=== PATIENT | female | born 1940 | race Caucasian/White ===

== ENCOUNTER 2019-09-06 09:27 | Outpatient (CLI) | payer MEDICARE, OTHER, SELFPAY ==
--- NOTE | 2019-09-06 09:30 | MM_ITS ---
WS: [id number] RIGHT DIGITAL MAMMOGRAPHY WITH CAD CLINICAL INFORMATION: RT BREAST NODULE COMPARISON: None. TECHNIQUE: 5 views of the right breast were obtained. FINDINGS: Scattered fibroglandular densities of the right breast. Vascular calcification. Lucent centered calci fications. Previously described 6 mm lobulated density upper outer right breast is stable compared to March 23, 2019. Ultrasound is pending. ULTRASOUND BREAST RIGHT TECHNIQUE: Ultrasound right breast focused area of concern. CLINICAL INFORMATION: RT BREAST NODULE COMPARISON: March 23, 2019 FINDINGS: Ultrasound right breast 9:00 position 3 cm from the nipple. A few tiny cysts are visualized largest m easuring 5.9 x 2.6 mm. No suspicious lesions. No pathologic lesions to target for biopsy. MM/[place] [id number] IMPRESSION: BI-RADS: 2-Benign FOLLOW UP: 1 Year Follow-up Recommend return to annual screening mammography.
== END 2019-09-06 09:28 | disposition home or self-care (01) ==
LOC: RADSHAW 09:27
PROVIDERS: PCP Nurse Practitioner Family; Visit Provider Nurse Practitioner Family
DX: N63.10 Unspecified lump in the right breast, unspecified quadrant (principal)
CPT/HCPCS: 76642; 77065

== ENCOUNTER 2020-07-04 22:30 | Emergency (ER) | payer MEDICARE, OTHER, SELFPAY ==
[2020-07-04 22:38] VITALS: BP 195/91; PULSE 61; RESP 18; TEMP 36.7; O2SAT 95; BMI 34.7
--- NOTE | 2020-07-04 22:45 | XR_ITS ---
WS: [id number] XR chest 1V portable [id number] REASON FOR EXAM: htn FINDINGS: The chest is unchanged compared to 07/17/2014. Mild tortuosity of the thoracic aorta normal heart. Calcified granulomatous changes in both hemithoraces of the right hemidiaphragm. No active pulmonary parenchymal pleural disease. Moderate degenerative changes in the shoulders and mid and lower thoracic spine. XR/XR chest 1V portable [id number] IMPRESSION: No acute chest abnormality.
--- NOTE | 2020-07-04 23:01 | ED_ITS ---
HPI - General Adult General: Chief complaint: General Medical Stated complaint: high blood pressure Time Seen by Provider: 07/04/20 22:36 Source: patient and family (daughter) Mode of arrival: ambulatory Limitations: no limitations History of Present Illness: HPI narrative: Pleasant 80 year old female patient presents to the ED due to HTN - reports BP readings at home 259/130 - out of home BP medication, Micardis x 5 days - took dose at 1500 today - denies CP - reports nausea. Reports SOB but is chronic due to asthma - states has not changed. She denies other symptoms upon exam. Reports past 6 months, blood pressure readings have elevated, average 180/70. Onset (ago): hour(s) (1) Relieving factors: none Exacerbating factors: none Associated symptoms: Reports dyspnea, headache(s) and nausea; Deny chest pain, diaphoresis, rash, palpitations or vomiting Treatments prior to arrival: other (BP medication) Review of Systems General: Reports: 10 or more systems reviewed and unremarkable except in HPI and below Const: Denies: fever(s), chills or diaphoresis Eyes: Denies: blurry vision or eye redness ENMT: Denies: throat pain, dental pain or disequilibrium Card: Denies: chest pain, palpitations or irregular heart rhythm Resp: Reports: dyspnea; Denies: productive cough, non-productive cough, wheezing or chest congestion GI: Reports: nausea; Denies: abdominal pain, vomiting, heartburn, constipation or GI cramping : Denies: difficulty voiding or dysuria Musc: Denies: neck pain, back pain, joint pain or joint warmth Skin/Breast: Denies: rash or pruritus Neuro: Reports: headache(s); Denies: numbness in extremities, weakness in extremities, sensory changes, difficulty walking or behavioral changes Psych: Denies: anxiety, depression, hopelessness or irritability Wilfredo/Lymph: Denies: easy bruising PFSH ED PFSH: Medical History Asthma HTN (hypertension) Physical Exam Const: COMMON NORMALS: no acute distress, average body habitus, patient oriented x3, healthy appearing, alert and well nourished EXAM LIMITATIONS: no altered mental status and no behavioral limitations GENERAL APPEARANCE: cooperative, comfortable, well kempt, well developed, anxious and well hydrated NUTRITIONAL APPEARANCE: obese ORIENTATION/CONSCIOUSNESS: Yes awake, Yes oriented to person, Yes oriented to place and Yes oriented to time HENMT: COMMON NORMALS: normocephalic, Normal external nose present and moist oral mucous membranes HEAD & SCALP: normocephalic NOSE: Normal external nose present Eye: COMMON NORMALS: Equal, round and reactive pupils present and EOMs intact bilaterally GENERAL EYE: appearance normal, both eyes and all related structures PUPIL: Yes Equal, round and reactive pupils present Neck/C-Spine: COMMON NORMALS: full ROM and no lymphadenopathy GENERAL: Yes normal visual inspection and Yes trachea midline CERVICAL SPINE: Yes cervical ROM normal Lymph: LYMPHATIC: no lymphadenopathy noted Chest: COMMONS NORMALS: normal inspection of the chest Resp: COMMON NORMALS: normal respiratory effort and clear to auscultation bilaterally AUSCULTATION: clear to auscultation bilaterally Cardio: COMMON NORMALS: regular rate, regular rhythm, S1 normal heart sound present, S2 normal heart sound present and Peripheral pulses 2+ throughout RATE: regular rate RHYTHM: regular rhythm HEART SOUNDS: S1 normal heart sound present and S2 normal heart sound present PERIPHERAL PULSES: Peripheral pulses 2+ throughout GI: COMMON NORMALS: Normal to inspection, nondistended, normoactive bowel sounds present, Soft to palpation and non-tender INSPECTION: Yes normal to inspection, No abdominal distension, Yes central obesity and No GI erythema present PALPATION: Yes Soft to palpation : COMMON NORMALS: Yes no CVA tenderness BLADDER/KIDNEY EXAM: Yes no CVA tenderness Back/Pelvis: COMMON NORMALS: no CVA tenderness, thoracic and lumbar spine normal to inspection, no thoracic nor lumbar tenderness and thoraco-lumbar ROM normal Extremity: COMMON NORMALS: normal to inspection and capillary refill normal Neuro: COMMON NORMALS: patient oriented x3 and no focal motor deficits SENSORIUM/ORIENTATION: Yes alert, Yes oriented to person, Yes oriented to place and Yes oriented to time Psych: COMMON NORMALS: mental status grossly normal, Normal thought process present and cooperative APPEARANCE: Yes well kempt ACTIVITY/MOTOR BEHAVIOR: Yes appropriate eye contact THOUGHT PROCESS: Normal thought process present Skin: COMMON NORMALS: no rashes or lesions noted and turgor normal GENERAL SKIN EXAM: no rashes or lesions noted and turgor normal Course ED course: Pleasant 80-year-old female patient presents to the emergency department with hypertension. She reports out of blood pressure medication for 5 days until today. States took Micardis around 3 PM. Blood pressure reading 223/113 upon my initial exam, clonidine 0.1 mg administered, blood pressure decreased, headache resolved with Tylenol and reduction of blood pressure. CT scan of the head completed secondary to concern of headache. Retention cyst, bilateral maxillary appreciated, she has been referred to ENT for further evaluation. She was advised to follow-up with her primary care physician next week, she has an appointment scheduled. Advised to continue with blood pressure log/monitoring. Prescription of clonidine provided in the event blood pressure exceeds 190/110. Low-salt diet recommended. Advised to rest today and tomorrow. Advised to return to emergency department if she developed worsening symptoms such as return of headache with uncontrolled blood pressure. Serial troponin negative, EKGs without significant findings. Serology testing without acute process. Vital Signs: Vital signs: Vital Signs Temperature 98.1 F 07/04/20 22:38 Pulse Rate 87 07/05/20 01:38 Respiratory Rate 18 07/05/20 01:38 Blood Pressure 179/73 07/05/20 01:38 Pulse Oximetry 98 07/05/20 01:38 [facility] - General Adult Lab Data: Labs: Lab Results 07/04/20 07/04/20 07/04/20 Range/Units 00:03 00:03 00:03 WBC 7.2 (4.0-10.0) 10^3/ uL RBC 4.34 (4.1-5.3) 10^6/u L Hgb 13.8 (11.5-15.3) g/dL Hct 42.3 (37.0-47.0) % MCV 97.5 (81-99) fL MCH 31.8 (28.0-34.0) pg MCHC 32.6 (30.0-36.0) g/dL RDW 11.9 L (12.1-15.1) % Plt Count 202 (130-400) 10^3/c mm MPV 10.5 H (7.4-10.4) fL Neut % (Auto) 59.5 % Lymph % (Auto) 29.6 % [place] % (Auto) 8.1 % Eos % (Auto) 2.1 % Baso % (Auto) 0.4 % Neut # (Auto) 4.28 (1.8-7.7) 10^3/u L Lymph # (Auto) 2.1 (0.8-4.8) 10^3/u L [place] # (Auto) 0.6 (0.2-0.9) 10^3/u L Eos # (Auto) 0.2 (0.0-0.8) 10^3/u L Baso # (Auto) 0.0 (0.0-0.1) 10^3/u L Nucleated RBC % (a uto) 0 % Nucleated RBCs # 0.0 /100WBC Sodium 141 (136-145) mmol/L Potassium 3.6 (3.5-5.1) mmol/L Chloride 105 (98-107) mmol/L Carbon Dioxide 28 (22-29) mmol/L Anion Gap 11.6 (5-19) BUN 30 H (8-23) mg/dL Creatinine 0.9 (0.5-0.9) mg/dL GFR Calculation Not Reportable Glucose 104 (65-115) mg/dL Calculated Osmolal ity 298 H (285-295) mOsm/k g Calcium 9.4 (8.5-10.5) mg/dL Total Bilirubin 0.3 (0.15-1.2) mg/dL AST 17 (0-32) U/L ALT 17 (0-33) U/L Alkaline Phosphata se 65 (35-105) IU/L Troponin T Baselin e 8 (0-10) ng/L Troponin T 120 Min point [place] (0-10) ng/L Delta Troponin T (0-10) ABS# Total Protein 6.5 L (6.6-8.7) g/dL Albumin 4.1 (3.5-5.2) g/dL Globulin 2.4 (1.3-4.6) g/dL Urine Color (Yellow) Urine Appearance (CLEAR) Urine pH (5-7) Ur Specific Gravit y (1.005-1.030) Urine Protein (Negative) Urine Glucose (UA) (Normal) Urine Ketones (Negative) Urine Blood (Negative) Urine Nitrate (Negative) Urine Bilirubin (Negative) Urine Urobilinogen (Negative) mg/dL Ur Leukocyte Eunice ase (Negative) 07/05/20 07/05/20 Range/Units 01:27 01:33 WBC (4.0-10.0) 10^3/ uL RBC (4.1-5.3) 10^6/u L Hgb (11.5-15.3) g/dL Hct (37.0-47.0) % MCV (81-99) fL MCH (28.0-34.0) pg MCHC (30.0-36.0) g/dL RDW (12.1-15.1) % Plt Count (130-400) 10^3/c mm MPV (7.4-10.4) fL Neut % (Auto) % Lymph % (Auto) % [place] % (Auto) % Eos % (Auto) % Baso % (Auto) % Neut # (Auto) (1.8-7.7) 10^3/u L Lymph # (Auto) (0.8-4.8) 10^3/u L [place] # (Auto) (0.2-0.9) 10^3/u L Eos # (Auto) (0.0-0.8) 10^3/u L Baso # (Auto) (0.0-0.1) 10^3/u L Nucleated RBC % (a uto) % Nucleated RBCs # /100WBC Sodium (136-145) mmol/L Potassium (3.5-5.1) mmol/L Chloride (98-107) mmol/L Carbon Dioxide (22-29) mmol/L Anion Gap (5-19) BUN (8-23) mg/dL Creatinine (0.5-0.9) mg/dL GFR Calculation Glucose (65-115) mg/dL Calculated Osmolal ity (285-295) mOsm/k g Calcium (8.5-10.5) mg/dL Total Bilirubin (0.15-1.2) mg/dL AST (0-32) U/L ALT (0-33) U/L Alkaline Phosphata se (35-105) IU/L Troponin T Baselin e (0-10) ng/L Troponin T 120 Min point [place] 6.70 (0-10) ng/L Delta Troponin T -1.3 L (0-10) ABS# Total Protein (6.6-8.7) g/dL Albumin (3.5-5.2) g/dL Globulin (1.3-4.6) g/dL Urine Color Yellow (Yellow) Urine Appearance Clear (CLEAR) Urine pH 5 (5-7) Ur Specific Gravit y 1.005 (1.005-1.030) Urine Protein Neg (Negative) Urine Glucose (UA) Norm (Normal) Urine Ketones Negative (Negative) Urine Blood Neg (Negative) Urine Nitrate Negative (Negative) Urine Bilirubin Neg (Negative) Urine Urobilinogen Norm (Negative) mg/dL Ur Leukocyte Eunice ase Negative (Negative) Imaging Data^: CT Head: Radiologist's impression: [address] [address] [address] Scan Report Signed Patient: Quin Stover #: [id number] : 1940Acct#:[id number] Age/Sex: 80 / FADM Date: 07/04/20 Loc: ERRoom/Bed: Attending Dr: Ordering Provider/Ordering MD: Amira Lara Date of Service: 07/05/20 Procedure(s): CT head wo con* [id number] Accession Number(s): [id number] Report Number: [id number] PROCEDURE INFORMATION: Exam: CT Head Without Contrast Exam date and time: 07/05/2020 12:37 AM Age: 80 years old Clinical indication: Prior surgery; Surgery type: Acoustic neuroma. Mesh in place; Patient HX: Hypertensive. C/O headache and dizziness. TECHNIQUE: Imaging protocol: Computed tomography of the head without contrast. Radiation optimization: All CT scans at this facility use at least one of these dose optimization techniques: automated exposure control; mA and/or kV adjustment per patient size (includes targeted exams where dose is matched to clinical indication); or iterative reconstruction. ADDITIONAL STUDY INFORMATION: Total DLP (mGy-cm): 821.7 COMPARISON: No relevant prior studies available. FINDINGS: There are changes left posterior fossa craniectomy and placement of mesh. Small amount of ill-defined low-density in lateral aspect left cerebellum is likely malacia/gliosis from old insult. There are prominent intracranial arterial calcifications. Evaluation of the brain demonstrates no other convincing areas of abnormal density. There is mild cerebral cortical atrophy. Ventricles do not appear significantly dilated. No depressed calvarial fracture is demonstrated. Partly demonstrated is rounded density in visualized right maxillary sinus and 2 in visualized left maxillary sinus, most compatible with polyps or retention cysts. Visualized mastoid air cells demonstrate no significant opacification. CT/CT head wo con* [id number] IMPRESSION: No definite acute intracranial process is demonstrated. Other findings as discussed above. Radiation Dose CTDIVOL = (mGy): DLP = 821.7 (mGy-cm) Dictated By:Gen Barth MD Signed By:Gen Barth MDSigned Date/Time:07/05/20 0216 EKG Data^: EKG 1: EKG interpretation date: 07/04/20 EKG interpretation time: 23:27 Computer generated interpretation: Head CT 07/05/20 00:20 IMPRESSION: No definite acute intracranial process is demonstrated. Other findings as discussed above. Radiation Dose CTDIVOL = (mGy): DLP = 821.7 (mGy-cm) Other EKG comments: Sinus rhythm, ventricular rate 60 EKG 2: EKG interpretation date: 07/05/20 EKG interpretation time: 01:17 Computer generated interpretation: Head CT 07/05/20 00:20 IMPRESSION: No definite acute intracranial process is demonstrated. Other findings as discussed above. Radiation Dose CTDIVOL = (mGy): DLP = 821.7 (mGy-cm) Other EKG comments: Sinus bradycardia, ventricular rate 54 Discharge Plan Discharge Patient Disposition: Home Clinical Impression: Mucous retention cyst of maxillary sinus Hypertension Qualifiers: Hypertension type: essential hypertension Qualified Code(s): I10 - Essential (primary) hypertension Condition: Stable Prescriptions: New clonidine HCl 0.1 mg tablet 0.1 mg PO DAILY Qty: 10 RF: 0 Discharge Orders: Discharge ED (Routine); Ordered 07/05/20 Ordered By: Amira Lara Referrals: Heidi Haile FNP [Primary Care Provider] - Discharge Diet: Cardiac Discharge Activity: Limit activity as instructed Patient Instructions: Chronic Hypertension (ED), Hypertensive Crisis (ED) Activity Restrictions/Additional Instructions: Low-salt diet Continue blood pressure monitoring daily, take blood pressure when at rest for 30 minutes. Record and take to your primary care provider Continue Micardis as prescribed, take daily Clonidine has been prescribed for you, take medication if blood pressure reading is greater than 190/110. Medication can cause drowsiness so do not drive if under the influence of clonidine Return to the emergency department if you develop the worst headache of your life, blood pressure that is out of control Follow-up with your primary care provider next week without fail. Take blood pressure readings to her for evaluation. services tech will be contacting you with an appointment with an ENT due to retention cyst in your sinus cavity appreciated on CT of the head. Coding Level of Care Code ED Director Of Vocational Guidance for Tre Fwaline Exam Comprehensive
[2020-07-04] MEDS: cloNIDine 0.1 mg Tablet PO (23:39)
[2020-07-04] MEDS: acetaminophen 500 mg Tablet 1000 MG PO (23:39)
[2020-07-05] MEDS: ondansetron 2 mg/ML SDV 2 mL 4 MG IVP (00:05)
--- NOTE | 2020-07-05 00:20 | CTR_ITS ---
PROCEDURE INFORMATION: Exam: CT Head Without Contrast Exam date and time: 07/05/2020 12:37 AM Age: 80 years old Clinical indication: Prior surgery; Surgery type: Acoustic neuroma. Mesh in place; Patient HX: Hypertensive. C/O headache and dizziness. TECHNIQUE: Imaging protocol: Computed tomography of the head without contrast. Radiation optimization: All CT scans at this facility use at least one of these dose optimization techniques: automated exposure control; mA and/or kV adjustment per patient size (includes targeted exams where dose is matched to clinical indication); or iterative reconstruction. ADDITIONAL STUDY INFORMATION: Total DLP (mGy-cm): 821.7 COMPARISON: No relevant prior studies available. FINDINGS: There are changes left posterior fossa craniectomy and placement of mesh. Small amount of ill-defined low-density in lateral aspect left cerebellum is likely malacia/gliosis from old insult. There are prominent intracranial arterial calcifications. Evaluation of the brain demonstrates no other convincing areas of abnormal density. There is mild cerebral cortical atrophy. Ventricles do not appear significantly dilated. No depressed calvarial fracture is demonstrated. Partly demonstrated is rounded density in visualized right maxillary sinus and 2 in visualized left maxillary sinus, most compatible with polyps or retention cysts. Visualized mastoid air cells demonstrate no significant opacification. CT/CT head wo con* [id number] IMPRESSION: No definite acute intracranial process is demonstrated. Other findings as discussed above. Radiation Dose CTDIVOL = (mGy): DLP = 821.7 (mGy-cm)
[2020-07-05 00:28] LABS: Basophils % 0.4 %; Eosinophils # 0.2 10^3/uL (0.0-0.8); Eosinophils % 2.1 %; Hematocrit 42.3 % (37.0-47.0); Hemoglobin 13.8 g/dL (11.5-15.3); Lymphocytes # 2.1 10^3/uL (0.8-4.8); Lymphocytes % 29.6 %; Mean Corpuscular HGB Conc 32.6 g/dL (30.0-36.0); Mean Corpuscular Hemoglobin 31.8 pg (28.0-34.0); Mean Corpuscular Volume 97.5 fL (81-99); Mean Platelet Volume 10.5 fL (7.4-10.4); Monocytes # 0.6 10^3/uL (0.2-0.9); Monocytes % 8.1 %; Neutrophils # 4.28 10^3/uL (1.8-7.7); Neutrophils % 59.5 %; Nucleated Red Blood Cells % 0 %; Platelet Count 202 10^3/cmm (130-400); Red Blood Count 4.34 10^6/uL (4.1-5.3); Red Cell Distribution Width 11.9 % (12.1-15.1); White Blood Count 7.2 10^3/uL (4.0-10.0)
[2020-07-05 00:37] LABS: Alanine Aminotransferase 17 U/L (0-33); Albumin Level 4.1 g/dL (3.5-5.2); Alkaline Phosphatase 65 IU/L (35-105); Anion Gap 11.6 (5-19); Aspartate Amino Transferase 17 U/L (0-32); Blood Urea Nitrogen 30 mg/dL (8-23); Calcium 9.4 mg/dL (8.5-10.5); Carbon Dioxide 28 mmol/L (22-29); Chloride 105 mmol/L (98-107); Globulin 2.4 g/dL (1.3-4.6); Glucose 104 mg/dL (65-115); Osmolality Calculated 298 mOsm/kg (285-295); Potassium 3.6 mmol/L (3.5-5.1); Sodium 141 mmol/L (136-145); Total Bilirubin 0.3 mg/dL (0.15-1.2); Total Protein 6.5 g/dL (6.6-8.7)
[2020-07-05 00:38] LABS: Troponin(5th) Baseline 8 ng/L (0-10)
[2020-07-05 01:38] VITALS: BP 179/73; PULSE 87; RESP 18; O2SAT 98
[2020-07-05 01:53] LABS: Add Urine Microscopic? NO
[2020-07-05 02:10] LABS: Bilirubin Urine Neg (Negative); Blood Urine Neg (Negative); Glucose Urine UA Norm (Normal); Ketones Urine Negative (Negative); Leukocyte Esterase Urine Negative (Negative); Nitrate Urine Negative (Negative); Protein Urine Neg (Negative); Specific Gravity, Urine 1.005 (1.005-1.030); Urine Appearance Clear (CLEAR); Urine Color Yellow (Yellow); Urobilinogen Urine Norm (Negative); pH Urine 5 (5-7)
[2020-07-05 02:44] LABS: Troponin 5 2HR Delta -1.3 ABS# (0-10)
[2020-07-05 02:57] VITALS: BP 168/91; PULSE 71; RESP 16; O2SAT 99
--- NOTE | 2020-07-05 10:19 | DCPLANNER ---
Addendum entered by Jennie Barraza 07/10/20 18:17: senior contracts manager was contacted and was told that when general surgery called patient she declined appointment due to patient having a ENT in [place] that she sees. Original Note: senior contracts manager had message to schedule a follow up appointment for patient with ENT. senior contracts manager emailed [place] at [facility] General Surgery, patients information. Patients information will be printed and reviewed. Clinic will call patient with appointment information.
== END 2020-07-05 02:58 | disposition home or self-care (01) ==
PROVIDERS: Emergency Provider Nurse Practitioner Family; PCP Nurse Practitioner Family
DX: I10 Essential (primary) hypertension (principal); J34.1 Cyst and mucocele of nose and nasal sinus
CPT/HCPCS: 12345; 36415; 70450; 71045; 80053; 81003; 84484; 85025; 96374; 99282; 99283; J2405

== ENCOUNTER → 2021-09-09 15:09 | Outpatient (BNVA) | payer MEDICARE, OTHER, SELFPAY | PROVIDERS: PCP Nurse Practitioner Family; Visit Provider Podiatrist Foot & Ankle Surgery | DX: M10.9 Gout, unspecified (principal); M21.611 Bunion of right foot | CPT/HCPCS: 73630 ==

== ENCOUNTER → 2021-10-29 12:45 | Outpatient (BNVA) | payer MEDICARE, OTHER, SELFPAY | PROVIDERS: PCP Nurse Practitioner Family; Visit Provider Podiatrist Foot & Ankle Surgery | DX: M65.9 Synovitis and tenosynovitis, unspecified (principal); M25.571 Pain in right ankle and joints of right foot | CPT/HCPCS: 73610; 73630; 99213 ==

== ENCOUNTER 2021-11-12 15:59 | Outpatient (CLI) | payer MEDICARE, OTHER, SELFPAY | END 2021-11-12 16:00 | disposition home or self-care (01) | LOC: SPT 16:03 | PROVIDERS: PCP Nurse Practitioner Family; Visit Provider Podiatrist Foot & Ankle Surgery | DX: Z46.89 Encounter for fitting and adjustment of other specified devices (principal); M21.611 Bunion of right foot; S92.301D Fracture of unspecified metatarsal bone(s), right foot, subsequent encounter for fracture with routine healing; X58.XXXD Exposure to other specified factors, subsequent encounter | CPT/HCPCS: 97760; L3030 ==

== ENCOUNTER 2022-08-29 10:52 | Outpatient (CLI) | payer MEDICARE, OTHER, SELFPAY ==
--- NOTE | 2022-08-29 10:58 | CT_ITS ---
WS: [id number] CT CHEST WITH INTRAVENOUS CONTRAST HISTORY: CHEST PAIN TECHNIQUE: Contiguous 5 mm axial imaging performed on the thorax. Coronal and sagittal reformats are submitted. All CT scans at [facility] use at least one of these dose optimization techniques: automated exposure control; mA and/or kV adjustment per patient size (includes targeted exams where dose is matched to clinical indication); or iterative reconstruction. CONTRAST: Omnipaque 350; 100 mL IV. DLP: 498.68 mGy.cm COMPARISON: None available. Lungs and central airway: Mild volume loss in the RIGHT thorax. Mild atelectasis along the major fiss ure. There is additional mild atelectasis at the RIGHT lung base. Pleura: Small RIGHT pleural effusion. Heart and pericardium: Mild enlargement the RIGHT heart chambers. There is mild RIGHT heart strain. F lattening of the interventricular septum. Mediastinum and demetris: No mediastinum or hilar adenopathy. Vessels: Atherosclerosis aorta. No aneurysm. Normal origin of the great vessels. Pulmonary emboli are noted in the distal RIGHT main pulmonary artery with extension into the proximal RIGHT lower lobe pu lmonary artery. There is near occlusion beginning in the lobar branch. Additional emboli to the RIGHT middle lobe. The exact extent of the oblique is difficult to determine as this was not a CTA angiogr am. Suspicious for segmental branch emboli in the LEFT lower lobe. Chest wall and lower neck: No soft tissue masses. Upper abdomen: Small hiatal hernia. There is a filling defect within the confluence of the portal vei n and splenic vein which is probably due to the early phase of injection. No adrenal mass. Osseous structures: Mild increase in thoracic kyphosis. CT/CT chest w con* [id number] IMPRESSION: 1. Acute pulmonary emboli. Significant embolic burden greatest within the RIGH T pulmonary artery and RIGHT lower lobe artery. Smaller emboli in the RIGHT mid dle and LEFT lower lobe. 2. Small RIGHT pleural effusion. 3. RIGHT heart strain. Notified DIONTE [place] at 08/29/2022 12:15 PM.
[2022-08-29 11:26] LABS: Blood Urea Nitrogen 26 mg/dL (8-23)
[2022-08-29] MEDS: iohexol 350 mg/mL 500 mL Btl (per mL) IV (11:42)
== END 2022-08-29 10:53 | disposition home or self-care (01) ==
LOC: RAD 10:53
PROVIDERS: PCP Nurse Practitioner Family; Visit Provider Nurse Practitioner Family
DX: R07.9 Chest pain, unspecified (principal); I26.99 Other pulmonary embolism without acute cor pulmonale; J90 Pleural effusion, not elsewhere classified; I51.9 Heart disease, unspecified
CPT/HCPCS: 71260; 82565; 84520; Q9967

== ENCOUNTER 2022-08-29 13:50 | Emergency (ER) | payer MEDICARE, OTHER, SELFPAY ==
[2022-08-29 13:52] VITALS: BP 166/84; RESP 73; O2SAT 94
--- NOTE | 2022-08-29 14:07 | ECG_ITS ---
[facility] Test Date: 2022-08-29 Pat Name: Quin Stover Department: Room: Gender: Female Secured Entrance Monitor: : 1940 Requested By: Jose Ramon Lowery Order Number: [id number] Deirdre MD: Robe Esteban M.D. Measurements Intervals [place] Rate: 63 P: 60 NM: 172 QRS: 9 QRSD: 78 T: 53 QT: 396 QTc: 408 Interpretive Statements SINUS RHYTHM LEFT VENTRICULAR HYPERTROPHY AND ST-T CHANGE [VOLTAGE CRITERIA PLUS ST/T ABNORMALITY] Compared to ECG 07/17/2014 02:39:24 ST (T wave) deviation now present Electronically Signed On 08-29-2022 16:19:49 REGULATORY AFFAIRS CONSULTANT by Robe Esteban M.D. [id number]
--- NOTE | 2022-08-29 14:07 | USCV_ITS ---
Quin Stover Age: 82 Gender: F : 1940 Exam Date: 08/29/2022 14:29 Ordering Phys: Jose Ramon Watkins DO Technologist: BRIAN Exam Location: [facility] [place] Indication: pe BP: / HR: 65 Rhythm: Sinus Technical Quality: Adequate MEASUREMENTS (Male / Female) Normal Values 2D ECHO LV Diastolic Diameter PLAX 4.3 cm 4.2 - 5.9 / 3.9 - 5.3 cm LV Systolic Diameter PLAX 2.3 cm IVS Diastolic Thickness 0.9 cm 0.6 - 1.0 / 0.6 - 0.9 cm IVS Systolic Thickness 1.4 cm LVPW Diastolic Thickness 1.0 cm 0.6 - 1.0 / 0.6 - 0.9 cm LVPW Systolic Thickness 1.3 cm LVOT Diameter 2.0 cm LV Ejection Fraction 2D Teich 78.1 % LV Ejection Fraction MOD 2C 43.5 % LV Ejection Fraction 2C AL 43.9 % LA Diameter 3.2 cm IVC Diameter 1.7 cm M-MODE Aortic Annulus Diameter 2.7 cm LA Ao Ratio MM 1.3 MV E Point Septal Separation 0.2 cm DOPPLER AV Peak Velocity 129.0 cm/s LVOT Peak Velocity 106.0 cm/s AV Area Cont Eq vti 2.4 cm squared AV Area Cont Eq pk 2.6 cm squared MV Area PHT 5.0 cm squared Mitral E to A Ratio 0.9 MV E' Velocity 57.5 cm/s Mitral E to MV E' Ratio 18.1 Mitral E to LV E' Lateral Ratio 15.7 Mitral E to LV E' Septal Ratio 21.2 TR Peak Velocity 302.2 cm/s TR Peak Gradient 36.5 mmHg TV Peak E Velocity 54.0 cm/s Right Atrial Pressure 9.0 mmHg Pulmonary Artery Systolic Pressu 45.5 mmHg PV Peak Velocity 101.0 cm/s FINDINGS Left Ventricle Normal left ventricular size, systolic function and wall thickness, with no regional wall motion abnormalities. Grade I/IV diastolic dysfunction (abnormal relaxation filling pattern), normal to mildly elevated filling pressures. Left ventricular ejection fraction is estimated at 60%. Right Ventricle Normal right ventricular size and systolic function. Mild pulmonary hypertension, RVSP 45.5 mmHg. Right Atrium The right atrium is normal in size. Left Atrium The left atrium is normal in size. Mitral Valve Structurally normal mitral valve. Mild mitral valve regurgitation. Aortic Valve Structurally normal aortic valve without significant sclerosis or stenosis. There is no aortic regurgitation. Tricuspid Valve Structurally normal tricuspid valve. Mild tricuspid valve regurgitation. Pulmonic Valve Pulmonic valve not well visualized. Pericardium Normal pericardium without effusion. Aorta Normal ascending aorta dimension. IVC The inferior vena cava appears normal. CONCLUSIONS Normal left ventricular size, systolic function and wall thickness, with no regional wall motion abnormalities. Grade I/IV diastolic dysfunction (abnormal relaxation filling pattern), normal to mildly elevated filling pressures. Left ventricular ejection fraction is estimated at 60%. Normal right ventricular size and systolic function. Mild pulmonary hypertension, RVSP 45.5 mmHg. There are no prior echocardiogram studies to compare. Dr. Robe Esteban MD (Electronically Signed) Final Date: 29 August 2022 16:16 S
--- NOTE | 2022-08-29 14:21 | W.ED.SOB ---
HPI - SOB/Dyspnea General: Chief Complaint: Shortness of Breath/Dyspnea Stated Complaint: [place] sent for blood clots in lungs Time Seen by Provider: 08/29/22 14:07 Source: patient Mode of arrival: ambulatory History of Present Illness: HPI Narrative: 82-year-old female presents emergency room by private vehicle. She had a PE scan earlier today came back with significant amount of pulmonary embolism prickly on the right side she had seen one of the midlevel's nearby clinics Dr. Kirk is supervising physician and seen the report in center and he called ahead of time. She is not on any anticoagulants she does not have any known history of any PEs or DVT. She has not noticed any swelling in her legs or does have some tenderness on the distal medial left thigh. She has shortness of breath with relatively minimal activity for the last couple of weeks MD elicited complaint: shortness of breath Onset (ago): week(s) Timing: intermittent and progressively worsening Severity: moderate Exacerbating factors: exertion Relieving factors: rest Associated symptoms: Deny abdominal pain, chest congestion, chest pain, cough, diaphoresis, dizziness, extremity pain, fever(s), hemoptysis, lightheadedness, myalgias, nausea, orthopnea, palpitations, paresthesias, polydipsia, polyuria, rash, sense of impending doom, syncope or vomiting Treatment prior to arrival: none Review of Systems Const: Denies: fever(s), chills, fatigue, malaise or diaphoresis ENMT: Denies: throat pain, ear or mastoid pain, nasal discharge or nasal congestion Card: Denies: chest pain, palpitations, irregular heart rhythm, edema, swelling of feet/ankles, lightheadedness, syncope or orthopnea Resp: Reports: dyspnea; Denies: productive cough, non-productive cough, wheezing, hemoptysis or chest congestion GI: Denies: abdominal pain, nausea or vomiting : Denies: flank pain, difficulty voiding, dysuria, urinary frequency or urinary urgency Musc: Denies: neck pain, back pain or extremity pain Skin/Breast: Denies: rash or pruritus Neuro: Denies: dizziness Endo: Denies: polyuria or polydipsia PFS ED PFSH: Medical History Asthma HTN (hypertension) Social History (Updated 08/29/22 @ 14:29 by Jose Ramon Watkins DO) Smoking and tobacco status: never smoked Alcohol intake: never Physical Exam Const: GENERAL APPEARANCE: cooperative and comfortable ORIENTATION/CONSCIOUSNESS: Yes awake, Yes oriented to person, Yes oriented to place and Yes oriented to time HENMT: COMMON NORMALS: normocephalic, atraumatic and hearing grossly normal bilaterally HEAD & SCALP: normocephalic and atraumatic Resp: COMMON NORMALS: normal respiratory effort, No retractions, No use of accessory muscles and clear to auscultation bilaterally AUSCULTATION: clear to auscultation bilaterally Cardio: COMMON NORMALS: regular rate, regular rhythm and No murmurs present (Cardio) RATE: regular rate RHYTHM: regular rhythm GI: COMMON NORMALS: Soft to palpation and No hepatosplenomegaly present AUSCULTATION: Yes normoactive bowel sounds PALPATION: Yes Soft to palpation, No Tenderness to palpation present (GI), No Guarding due to palpation present (GI) and Yes No hepatosplenomegaly present : BLADDER/KIDNEY EXAM: No CVA tenderness Back/Pelvis: GENERAL BACK: No CVA tenderness Extremity: COMMON NORMALS: normal to inspection, capillary refill normal, no clubbing, cyanosis or edema, no calf tenderness and no pedal edema OTHER: Left medial thigh tenderness Neuro: SENSORIUM/ORIENTATION: Yes oriented to person, Yes oriented to place and Yes oriented to time Skin: COMMON NORMALS: no rashes or lesions noted GENERAL SKIN EXAM: no rashes or lesions noted Course Vital Signs: Vital signs: Vital Signs Pulse Rate 66 08/29/22 18:12 Respiratory Rate 22 H 08/29/22 16:00 Blood Pressure 178/72 08/29/22 18:12 Pulse Oximetry 95 08/29/22 18:12 Oxygen Delivery Me thod 08/29/22 14:54 MDM - SOB/Dyspnea Medical Decision Making No significant right heart strain. We will start anticoagulation. Reviewed findings with the patient. DVT with PE as per CTA. Started on anticoagulation follow-up with primary care. Return if has further problems. Medical Records I reviewed the patient's medical records. Lab Data I reviewed the patient's lab results. 08/29/22 14:25 08/29/22 14:25 Labs/Radiology: Radiology Impressions Venous Duplex 08/29/22 14:24 IMPRESSION: No evidence of deep vein thrombosis. Laboratory Results WBC 8.3 10^3/uL (4.0-10.0) 08/29/22 14:25 RBC 4.59 10^6/uL (4.1-5.3) 08/29/22 14:25 Hgb 13.9 g/dL (11.5-15.3) 08/29/22 14:25 Hct 42.7 % (37.0-47.0) 08/29/22 14:25 MCV 93.0 fl (81-99) 08/29/22 14:25 MCH 30.3 pg (28.0-34.0) 08/29/22 14:25 MCHC 32.6 g/dL (30.0-36.0) 08/29/22 14:25 RDW 12.2 % (12.1-15.1) 08/29/22 14:25 Plt Count 374 10^3/cmm (130-400) 08/29/22 14:25 Plt Count Cancelled 08/29/22 14:25 MPV 9.6 fL (7.4-10.4) 08/29/22 14:25 Neut % (Auto) 62.5 % 08/29/22 14:25 Lymph % (Auto) 23.3 % 08/29/22 14:25 [place] % (Auto) 10.2 % 08/29/22 14:25 Eos % (Auto) 2.9 % 08/29/22 14:25 Baso % (Auto) 0.7 % 08/29/22 14:25 Neut # (Auto) 5.22 10^3/uL (1.8-7.7) 08/29/22 14:25 Lymph # (Auto) 1.9 10^3/uL (0.8-4.8) 08/29/22 14:25 [place] # (Auto) 0.9 10^3/uL (0.2-0.9) 08/29/22 14:25 Eos # (Auto) 0.2 10^3/uL (0.0-0.8) 08/29/22 14:25 Baso # (Auto) 0.1 10^3/uL (0.0-0.1) 08/29/22 14:25 Nucleated RBC % (auto) 0 % 08/29/22 14:25 Nucleated RBCs # 0.0 /100WBC 08/29/22 14:25 PT 12.90 SECONDS (12.1-14.9) 08/29/22 14:25 INR 0.94 (0.8-1.2) 08/29/22 14:25 APTT 27.2 SECONDS (23.9-36.7) 08/29/22 14:25 Sodium 139 mmol/L (136-145) 08/29/22 14:25 Potassium 3.4 mmol/L (3.5-5.1) L 08/29/22 14:25 Chloride 99 mmol/L (98-107) 08/29/22 14:25 Carbon Dioxide 29 mmol/L (22-29) 08/29/22 14:25 Anion Gap 14.4 (5-19) 08/29/22 14:25 BUN 27 mg/dL (8-23) H 08/29/22 14:25 Creatinine 1.0 mg/dL (0.5-0.9) H 08/29/22 14:25 GFR Calculation Not Reportable 08/29/22 14:25 Glucose 111 mg/dL (65-115) 08/29/22 14:25 Calculated Osmolality 294 mOsm/kg (285-295) 08/29/22 14:25 Calcium 9.2 mg/dL (8.5-10.5) 08/29/22 14:25 Total Bilirubin 0.2 mg/dL (0.15-1.2) 08/29/22 14:25 AST 11 U/L (0-32) 08/29/22 14:25 ALT 8 U/L (0-33) 08/29/22 14:25 Alkaline Phosphatase 81 U/L (35-105) 08/29/22 14:25 Total Protein 6.5 g/dL (6.6-8.7) L 08/29/22 14:25 Albumin 3.6 g/dL (3.5-5.2) 08/29/22 14:25 Globulin 2.9 g/dL (1.3-4.6) 08/29/22 14:25 Discharge Plan Discharge Patient Disposition: Home Clinical Impression: Pulmonary embolism Condition: Stable Prescriptions: New Perriquis DVT-PE Treat 30D Start 5 mg (74 tabs) tablets,dose pack See Rx Instructions .ROUTE .COMPLEX Qty: 74 0RF Rx Instructions: orally per package directions No Action omeprazole 20 mg capsule,delayed release(DR/EC) 20 mg PO BID escitalopram oxalate 20 mg tablet 20 mg PO DAILY telmisartan [Micardis] 20 mg tablet 20 mg PO DAILY (DME) sole supports See Rx Instructions .Route .MEDSUPPLY Qty: 1 0RF Rx Instructions: As directed prednisone 20 mg tablet See Rx Instructions .ROUTE .COMPLEX Rx Instructions: 20 mg DIRECTED amlodipine 2.5 mg tablet 2.5 mg PO DAILY Discharge Orders: Discharge ED (Routine); Ordered 08/29/22 Ordered By: Jose Ramon Watkins Referrals: Heidi Haile FNP [Primary Care Provider] - Discharge Diet: Usual diet Discharge Activity: Resume usual activity Patient Instructions: Opioid Safety, Pain Management Activity Restrictions/Additional Instructions: You were seen today after a CT of your chest showed that you had a blood clot in the lungs (pulmonary embolism). Ultrasound of your legs did not show any source for the clot. It is possible that the upper respiratory infection you recently had was COVID and that precipitated the clot. Recommend that you stay on Eliquis until you are told to stop by your primary care physician. Follow the directions on the package. Recheck with your primary care doctor in approximately 10 to 14 days. 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
--- NOTE | 2022-08-29 14:24 | USR_ITS ---
PROCEDURE INFORMATION: Exam: US Duplex Lower Extremity Veins, Bilateral Exam date and time: 08/29/2022 4:32 PM Age: 82 years old Clinical indication: Pain and condition or disease; Other: Pe; Leg, lower; Left; Additional info: Pe, leg pain swelling TECHNIQUE: Imaging protocol: Real-time duplex ultrasound of the bilateral extremities with 2-D michelle scale, color Doppler flow and spectral waveform analysis including responses to compression and other maneuvers (when performed) with image documentation. Complete exam focused on the lower extremity veins. COMPARISON: CR XR foot LT min 3V* [id number] 05/13/2022 12:36 PM FINDINGS: Right deep veins: Unremarkable. The common femoral, femoral, proximal profunda femoral and popliteal veins are patent without thrombus. Normal Doppler waveforms. Normal compressibility and/or augmentation response. Right superficial veins: Saphenofemoral junction is patent without thrombus. Left deep veins: Unremarkable. The common femoral, femoral, proximal profunda femoral and popliteal veins are patent without thrombus. Normal Doppler waveforms. Normal compressibility and/or augmentation response. Left superficial veins: Saphenofemoral junction is patent without thrombus. Soft tissues: Unremarkable. US/[place] [id number] IMPRESSION: No evidence of deep vein thrombosis.
[2022-08-29 14:48] LABS: Basophils # 0.1 10^3/uL (0.0-0.1); Basophils % 0.7 %; Eosinophils # 0.2 10^3/uL (0.0-0.8); Eosinophils % 2.9 %; Hematocrit 42.7 % (37.0-47.0); Hemoglobin 13.9 g/dL (11.5-15.3); Lymphocytes # 1.9 10^3/uL (0.8-4.8); Lymphocytes % 23.3 %; Mean Corpuscular HGB Conc 32.6 g/dL (30.0-36.0); Mean Corpuscular Hemoglobin 30.3 pg (28.0-34.0); Mean Platelet Volume 9.6 fL (7.4-10.4); Monocytes # 0.9 10^3/uL (0.2-0.9); Monocytes % 10.2 %; Neutrophils # 5.22 10^3/uL (1.8-7.7); Neutrophils % 62.5 %; Nucleated Red Blood Cells % 0 %; Platelet Count 374 10^3/cmm (130-400); Red Blood Count 4.59 10^6/uL (4.1-5.3); Red Cell Distribution Width 12.2 % (12.1-15.1); White Blood Count 8.3 10^3/uL (4.0-10.0)
[2022-08-29 14:54] VITALS: BP 201/106; PULSE 68; O2SAT 93
[2022-08-29 15:00] VITALS: BP 201/106; PULSE 72; RESP 27; O2SAT 93
[2022-08-29 15:01] LABS: INR 0.94 (0.8-1.2); Partial Thromboplastin Time 27.2 SECONDS (23.9-36.7)
[2022-08-29 15:05] LABS: Alanine Aminotransferase 8 U/L (0-33); Albumin Level 3.6 g/dL (3.5-5.2); Alkaline Phosphatase 81 U/L (35-105); Anion Gap 14.4 (5-19); Aspartate Amino Transferase 11 U/L (0-32); Blood Urea Nitrogen 27 mg/dL (8-23); Calcium 9.2 mg/dL (8.5-10.5); Carbon Dioxide 29 mmol/L (22-29); Chloride 99 mmol/L (98-107); Globulin 2.9 g/dL (1.3-4.6); Glucose 111 mg/dL (65-115); Osmolality Calculated 294 mOsm/kg (285-295); Potassium 3.4 mmol/L (3.5-5.1); Sodium 139 mmol/L (136-145); Total Bilirubin 0.2 mg/dL (0.15-1.2); Total Protein 6.5 g/dL (6.6-8.7)
[2022-08-29 15:30] VITALS: BP 215/76; PULSE 64; RESP 22; O2SAT 94
[2022-08-29] MEDS: heparin 5,000 unit/mL INJ 1 mL IV (15:36)
[2022-08-29] MEDS: heparin drip 25,000 UNIT/500 ML PREMIX 2 UNIT IV (15:40)
[2022-08-29 16:00] VITALS: BP 221/92; PULSE 62; RESP 22; O2SAT 94
[2022-08-29] MEDS: amlodipine 5 mg Tablet 2.5 MG PO (16:45)
[2022-08-29] MEDS: hyDRALAzine 20 mg/mL INJ 1 mL IVP (17:43)
[2022-08-29 18:12] VITALS: BP 178/72; PULSE 66; O2SAT 95
[2022-08-29] MEDS: apixaban 5 mg Tablet 10 MG PO (22:51)
--- NOTE | 2022-08-29 22:51 | PC.NURSE ---
Pt. unable to get prescription filled tonight and needed to start eliquis tonight. Dr. magallanes wrote order for pt. medication for home.
== END 2022-08-29 18:13 | disposition home or self-care (01) ==
PROVIDERS: Emergency Provider Family Medicine; PCP Nurse Practitioner Family
DX: I26.99 Other pulmonary embolism without acute cor pulmonale (principal); I10 Essential (primary) hypertension
CPT/HCPCS: 36415; 71260; 80053; 82565; 84520; 85025; 85610; 85730; 93005; 93306; 93970; 96374; 96375; 99285; J0360; J1644; Q9967

== ENCOUNTER 2022-12-02 16:53 | Inpatient (IN) | payer MEDICARE, OTHER, SELFPAY ==
[2022-12-02] VITALS (7 sets, daily range): BP systolic 143–158; BP diastolic 67–96; PULSE 73–82; RESP 16–23; TEMP 37.3; O2SAT 87–95; BMI 33.1
--- NOTE | 2022-12-02 18:09 | XRR_ITS ---
PROCEDURE INFORMATION: Exam: XR Chest Exam date and time: 12/02/2022 6:28 PM Age: 82 years old Clinical indication: Shortness of breath; Additional info: SOB TECHNIQUE: Imaging protocol: Radiologic exam of the chest. Views: 1 view. COMPARISON: CT chest w con* [id number] 08/29/2022 11:28 AM FINDINGS: Lungs: Interval development of patchy airspace disease in the lateral left lung suspicious for pneumonia. Pleural spaces: No pleural effusion. No pneumothorax. Heart/Mediastinum: Stable moderate enlargement of the cardiac silhouette. Mediastinal contours are unremarkable. Bones/joints: Unremarkable for age. XR/XR chest 1V portable [id number] IMPRESSION: 1. Interval development of patchy airspace disease in the lateral left lung suspicious for pneumonia. Recommend followup chest imaging to insure resolution of these findings. 2. Incidental/nonacute findings are listed in the report.
--- NOTE | 2022-12-02 18:14 | ECG_ITS ---
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 Measurements Intervals [place] Rate: 78 P: 31 UT: 177 QRS: 8 QRSD: 73 T: 30 QT: 322 QTc: 368 Interpretive Statements SINUS RHYTHM VOLTAGE CRITERIA FOR LVH [MEETS CRITERIA IN ONE OF: R(aVL), S(V1), R(V5), R(V5/V6)+S(V1)] POSSIBLE ANTERIOR MYOCARDIAL INFARCTION , PROBABLY OLD [30 ms Q WAVE IN V3/V4, OR R < 0.2 mV IN V4] Compared to ECG 08/29/2022 14:25:37 Myocardial infarct finding now present ST (T wave) deviation no longer present Electronically Signed On 12-03-2022 17:50:30 CDT by Frantz Lilly M.D. [email or web address]
--- NOTE | 2022-12-02 18:22 | ED_ITS ---
HPI - SOB/Dyspnea General: Chief Complaint: Shortness of Breath/Dyspnea Stated Complaint: coughing up blood Time Seen by Provider: 12/02/22 18:14 History of Present Illness: HPI Narrative: Patient presents to the ER with main complaint of coughing up blood since about noon today. Patient has had some respiratory issues going on for about the last 3 weeks. Where she has had a cough however today was the only day she is coughed up blood. Patient is on Eliquis due to history of a PE. Patient reports some shortness of breath and has been using her 2 inhalers to combat that. Patient is also having headache. MD elicited complaint: shortness of breath and cough Pertinent past history: COPD, asthma and PE Onset (ago): day(s) (Coughing up blood since noon today) Context: recent illness (URI-like symptoms for the last 3 weeks) Timing: constant Severity: mild Exacerbating factors: coughing Relieving factors: nothing Known history of: COPD and PE Associated symptoms: Reports cough, fever(s) and hemoptysis; Deny abdominal pain, chest pain, nausea, palpitations or vomiting Review of Systems General: Reports: 10 or more systems reviewed and unremarkable except in HPI and below Const: Reports: fever(s) and chills Eyes: Denies: change in vision or photophobia ENMT: Denies: throat pain or odynophagia Card: Denies: chest pain, palpitations or irregular heart rhythm Resp: Reports: dyspnea, productive cough, wheezing and hemoptysis GI: Denies: abdominal pain, nausea or vomiting : Denies: flank pain, difficulty voiding or dysuria Musc: Denies: neck pain or back pain Skin/Breast: Denies: rash or pruritus Neuro: Reports: headache(s); Denies: numbness in extremities or weakness in extremities Psych: Denies: anxiety or depression PFSH ED PFSH: Medical History Asthma HTN (hypertension) Social History Smoking and tobacco status: never smoked Alcohol intake: never Physical Exam Const: COMMON NORMALS: no acute distress, average body habitus, patient oriented x3, no limitations, healthy appearing, alert and well nourished HENMT: COMMON NORMALS: normocephalic, atraumatic, hearing grossly normal bilaterally, external ears normal, Normal external nose present and moist oral mucous membranes HEAD & SCALP: normocephalic and atraumatic NOSE: Normal external nose present EXTERNAL EAR: Yes external ears normal Eye: COMMON NORMALS: Equal, round and reactive pupils present, EOMs intact bilaterally, conjunctivae normal and no scleral icterus CONJUNCTIVA: Yes conjunctivae normal PUPIL: Yes Equal, round and reactive pupils present Neck/C-Spine: COMMON NORMALS: full ROM, no lymphadenopathy, supple, no meningeal signs, no JVD and Thyroid normal THYROID: Thyroid normal Lymph: LYMPHATIC: no lymphadenopathy noted Chest: COMMONS NORMALS: normal inspection of the chest and normal palpation of entire chest wall Resp: EFFORT & INSPECTION: Yes able to speak in complete sentences and Yes audible wheezes AUSCULTATION: wheezes Cardio: COMMON NORMALS: no JVD, regular rate, regular rhythm, S1 normal heart sound present and S2 normal heart sound present RATE: regular rate RHYTHM: regular rhythm HEART SOUNDS: S1 normal heart sound present and S2 normal heart sound present GI: COMMON NORMALS: Normal to inspection, nondistended, normoactive bowel sounds present, Soft to palpation, non-tender, No hepatosplenomegaly present and no masses PALPATION: Yes Soft to palpation and Yes No hepatosplenomegaly present Extremity: NARRATIVE EXTREMITY EXAM: 1+ pitting edema to bilateral lower extremities Neuro: COMMON NORMALS: patient oriented x3 SENSORIUM/ORIENTATION: Yes alert MENINGEAL SIGNS: Yes no meningeal signs Course Vital Signs: Vital signs: Vital Signs Temperature 99.1 F 12/02/22 18:04 Pulse Rate 79 12/02/22 22:18 Respiratory Rate 17 12/02/22 22:18 Blood Pressure 146/96 12/02/22 22:18 Pulse Oximetry 91 12/02/22 22:18 Oxygen Delivery Me thod Nasal Cannula 12/02/22 18:16 Oxygen Flow Rate 2 12/02/22 18:16 MDM - SOB/Dyspnea Medical Decision Making Patient presents to the ER today with 3-week history of URI worsening today resulting in hemoptysis and hypoxia. Patient needed to be on about 2 L of oxygen per nasal cannula to keep her sat up in the mid 80s. Patient is on Eliquis for history of DVT. Lab work was obtained which showed a white count of 14.2 BUN and creatinine of [address] showed multiple areas suspicious for bronchopneumonia. Dr. Luciano was consulted and agreed for inpatient admission. Patient was given Zosyn and azithromycin in ER. Differential Diagnosis Likely acute exacerbation of chronic obstructive airways disease and asthma with exacerbation; Unlikely congestive heart failure, community acquired pneumonia or pulmonary embolism Medical Records I reviewed the patient's medical records. Lab Data I reviewed the patient's lab results. 12/02/22 18:35 12/02/22 18:35 Labs/Radiology: Radiology Impressions Chest X-Ray 12/02/22 18:09 IMPRESSION: 1. Interval development of patchy airspace disease in the lateral left lung suspicious for pneumonia. Recommend followup chest imaging to insure resolution of these findings. 2. Incidental/nonacute findings are listed in the report. Chest CTA 12/02/22 19:54 IMPRESSION: 1. Bronchial wall thickening in all pulmonary lobes bilaterally. Mucous plugging in the right and left lower lobes. Patchy alveolar airspace disease in the right and left lower lobes and more extensive airspace disease with air bronchograms in the left upper lobe and left lingula. Findings are suspicious for bronchopneumonia. Recommend followup chest imaging to insure resolution of these findings. 2. No evidence for pulmonary embolism. 3. Trace left pleural effusion. 4. Small hiatal hernia. 5. Nonspecific mediastinal and bilateral hilar lymphadenopathy, which could be reactive in nature. Followup imaging recommended to insure stability/resolution however. 6. Incidental/nonacute findings are listed in the report. Laboratory Results WBC 14.2 10^3/uL (4.0-10.0) H 12/02/22 18:35 RBC 4.44 10^6/uL (4.1-5.3) 12/02/22 18:35 Hgb 13.3 g/dL (11.5-15.3) 12/02/22 18:35 Hct 41.5 % (37.0-47.0) 12/02/22 18:35 MCV 93.5 fl (81-99) 12/02/22 18:35 MCH 30.0 pg (28.0-34.0) 12/02/22 18:35 MCHC 32.0 g/dL (30.0-36.0) 12/02/22 18:35 RDW 13.2 % (12.1-15.1) 12/02/22 18:35 Plt Count 179 10^3/cmm (130-400) 12/02/22 18:35 MPV 10.1 fL (7.4-10.4) 12/02/22 18:35 Neut % (Auto) 85.6 % 12/02/22 18:35 Lymph % (Auto) 6.4 % 12/02/22 18:35 [place] % (Auto) 7.2 % 12/02/22 18:35 Eos % (Auto) 0.0 % 12/02/22 18:35 Baso % (Auto) 0.1 % 12/02/22 18:35 Neut # (Auto) 12.12 10^3/uL (1.8-7.7) H 12/02/22 18:35 Lymph # (Auto) 0.9 10^3/uL (0.8-4.8) 12/02/22 18:35 [place] # (Auto) 1.0 10^3/uL (0.2-0.9) H 12/02/22 18:35 Eos # (Auto) 0.0 10^3/uL (0.0-0.8) 12/02/22 18:35 Baso # (Auto) 0.0 10^3/uL (0.0-0.1) 12/02/22 18:35 Nucleated RBC % (auto) 0 % 12/02/22 18:35 Nucleated RBCs # 0.0 /100WBC 12/02/22 18:35 PT 16.60 SECONDS (12.1-14.9) H 12/02/22 18:35 INR 1.30 (0.8-1.2) H 12/02/22 18:35 Sodium 141 mmol/L (136-145) 12/02/22 18:35 Potassium 3.7 mmol/L (3.5-5.1) 12/02/22 18:35 Chloride 102 mmol/L (98-107) 12/02/22 18:35 Carbon Dioxide 26 mmol/L (22-29) 12/02/22 18:35 Anion Gap 16.7 (5-19) 12/02/22 18:35 BUN 19 mg/dL (8-23) 12/02/22 18:35 Creatinine 1.1 mg/dL (0.5-0.9) H 12/02/22 18:35 GFR Calculation Not Reportable 12/02/22 18:35 Glucose 112 mg/dL (65-115) 12/02/22 18:35 Calculated Osmolality 295 mOsm/kg (285-295) 12/02/22 18:35 Calcium 8.8 mg/dL (8.5-10.5) 12/02/22 18:35 Total Bilirubin 1.0 mg/dL (0.15-1.2) 12/02/22 18:35 AST 13 U/L (0-32) 12/02/22 18:35 ALT 8 U/L (0-33) 12/02/22 18:35 Alkaline Phosphatase 63 U/L (35-105) 12/02/22 18:35 NT-Pro-B Natriuret Pep 2208 pg/mL (0-450) H 12/02/22 18:35 Total Protein 6.7 g/dL (6.6-8.7) 12/02/22 18:35 Albumin 4.0 g/dL (3.5-5.2) 12/02/22 18:35 Globulin 2.7 g/dL (1.3-4.6) 12/02/22 18:35 EKG Data EKG 1: I personally reviewed and interpreted this EKG as follows: EKG Interpretation Date: 12/02/22 EKG interpretation time: 18:14 Prior EKG tracings: not available for review Interpretation: EKG shows normal sinus rhythm ventricular rate of 78 bpm, CO interval 177, QRS duration 73, QTc of 355, LVH, possible old anterior ND with Q waves in V3 and V4 , no ST elevation Discharge Plan Discharge Patient Disposition: Admitted As Inpatient Clinical Impression: Community acquired pneumonia, Hypoxia Condition: Stable Prescriptions: No Action omeprazole 20 mg capsule,delayed release(DR/EC) 20 mg PO BID escitalopram oxalate 20 mg tablet 20 mg PO DAILY telmisartan [Micardis] 20 mg tablet 20 mg PO DAILY (DME) sole supports See Rx Instructions .Route .MEDSUPPLY Qty: 1 0RF Rx Instructions: As directed prednisone 20 mg tablet See Rx Instructions .ROUTE .COMPLEX Rx Instructions: 20 mg DIRECTED amlodipine 2.5 mg tablet 2.5 mg PO DAILY Eliquis DVT-PE Treat 30D Start 5 mg (74 tabs) tablets,dose pack See Rx Instructions .ROUTE .COMPLEX Qty: 74 0RF Rx Instructions: orally per package directions Referrals: Heidi Haile FNP [Primary Care Provider] - 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
[2022-12-02 19:14] LABS: Basophils % 0.1 %; Hematocrit 41.5 % (37.0-47.0); Hemoglobin 13.3 g/dL (11.5-15.3); Lymphocytes # 0.9 10^3/uL (0.8-4.8); Lymphocytes % 6.4 %; Mean Corpuscular Volume 93.5 fl (81-99); Mean Platelet Volume 10.1 fL (7.4-10.4); Monocytes % 7.2 %; Neutrophils # 12.12 10^3/uL (1.8-7.7); Neutrophils % 85.6 %; Nucleated Red Blood Cells % 0 %; Platelet Count 179 10^3/cmm (130-400); Red Blood Count 4.44 10^6/uL (4.1-5.3); Red Cell Distribution Width 13.2 % (12.1-15.1); White Blood Count 14.2 10^3/uL (4.0-10.0)
[2022-12-02 19:45] LABS: Alanine Aminotransferase 8 U/L (0-33); Alkaline Phosphatase 63 U/L (35-105); Anion Gap 16.7 (5-19); Aspartate Amino Transferase 13 U/L (0-32); Blood Urea Nitrogen 19 mg/dL (8-23); Calcium 8.8 mg/dL (8.5-10.5); Carbon Dioxide 26 mmol/L (22-29); Chloride 102 mmol/L (98-107); Globulin 2.7 g/dL (1.3-4.6); Glucose 112 mg/dL (65-115); NT Pro B Type Natriuretic Pept 2208 pg/mL (0-450); Osmolality Calculated 295 mOsm/kg (285-295); Potassium 3.7 mmol/L (3.5-5.1); Sodium 141 mmol/L (136-145); Total Protein 6.7 g/dL (6.6-8.7)
--- NOTE | 2022-12-02 19:54 | CTR_ITS ---
PROCEDURE INFORMATION: Exam: CTA Chest With Contrast Exam date and time: 12/02/2022 9:36 PM Age: 82 years old Clinical indication: Other: Hemopytsis; Additional info: Hemoptysis, abnormal cxr, HX of pe TECHNIQUE: Imaging protocol: Computed tomographic angiography of the chest with contrast. Sagittal and coronal reformatted images were created and reviewed. 3D rendering (Not supervised by radiologist): MIP and/or 3D reconstructed images were created by the technologist. Radiation optimization: All CT scans at this facility use at least one of these dose optimization techniques: automated exposure control; mA and/or kV adjustment per patient size (includes targeted exams where dose is matched to clinical indication); or iterative reconstruction. Contrast material: OMNI 350; Contrast volume: 100 ml; Contrast route: INTRAVENOUS (IV); REPORTING DATA: Count of CT and Cardiac NM exams in prior 12 months: This patient has received [address] and 0 known cardiac nuclear medicine studies in the 12 months prior to the current study. COMPARISON: CT chest w con* [id number] 08/29/2022 11:28 AM RADIATION DOSE METRICS: Total DLP (mGy-cm): 348.29 FINDINGS: Pulmonary arteries: No filling defects in the pulmonary arteries to suggest pulmonary embolism. Aorta: Mild atherosclerotic changes in the visualized arteries. No evidence for aortic aneurysm. Evaluation for aortic dissection is limited due to the phase of contrast-enhancement. Lungs: Bronchial wall thickening in all pulmonary lobes bilaterally. Mucous plugging in the right and left lower lobes. Patchy alveolar airspace disease in the right and left lower lobes and more extensive airspace disease with air bronchograms in the left upper lobe and left lingula. Calcified granuloma in the left lower lobe. Pleural spaces: Trace left pleural effusion. No pneumothorax. Heart: Stable moderate enlargement of the heart. Coronary arteries: Mild atherosclerotic calcification in the coronary arteries. Esophagus: The esophagus is unremarkable. Mediastinal space: No mediastinal hematoma. No pneumomediastinum. Lymph nodes: Multiple enlarged lymph nodes in the mediastinum in bilateral demetris. The largest measures 1.9 cm in short axis (series 6, image 165). Diaphragm: Small hiatal hernia. Liver: The visualized liver is unremarkable. Gallbladder and bile ducts: The visualized gallbladder is unremarkable. Spleen: Calcified granuloma in the visualized spleen. Adrenal glands: The visualized right and left adrenal glands are unremarkable. Bones/joints: Multilevel degenerative changes of varying severity in the visualized spine. Degenerative changes in the spine and shoulders. Old fracture of the distal right clavicle. Soft tissues: No acute abnormality in the extrathoracic soft tissues. CT/CT angio chest PE protcl [id number] IMPRESSION: 1. Bronchial wall thickening in all pulmonary lobes bilaterally. Mucous plugging in the right and left lower lobes. Patchy alveolar airspace disease in the right and left lower lobes and more extensive airspace disease with air bronchograms in the left upper lobe and left lingula. Findings are suspicious for bronchopneumonia. Recommend followup chest imaging to insure resolution of these findings. 2. No evidence for pulmonary embolism. 3. Trace left pleural effusion. 4. Small hiatal hernia. 5. Nonspecific mediastinal and bilateral hilar lymphadenopathy, which could be reactive in nature. Followup imaging recommended to insure stability/resolution however. 6. Incidental/nonacute findings are listed in the report.
[2022-12-02] MEDS: iohexol 350 mg/mL 500 mL Btl (per mL) IV (21:42)
[2022-12-02] MEDS: piperacillin-tazobactam 3.375 GM in sodium chloride 0.9% (plus) 50 ML IV (22:51)
[2022-12-02] MEDS: azithromycin 250 mg Tablet 500 MG PO (22:51)
--- NOTE | 2022-12-02 23:28 | PM.HP ---
Providers/Chief Complaint Admitting Physician: Jocelyn Luciano MD Primary Care Provider: DIONTE Norton Chief Complaint: coughing up blood History of Present Illness Quin Stover is a 82 year old female with a past medical history of PE in August 2022, asthma for which she takes as needed inhalers, she is presenting to the emergency room today with 3 weeks of cough rhinorrhea and sputum production. Yesterday she started to also experience hemoptysis which she describes as few clots of blood after a bout of coughing which brought her to the emergency room. She has had subjective fevers. Tmax in the emergency room noted to be 99.6. Her O2 sats were 88%, typically she does not wear any oxygen at home. Currently needing 2 L/min supplemental O2. CT of the chest was performed which showed evidence of bronchopneumonia. She has not received any antibiotic treatment thus far. Denies any complaints of chest pain dyspnea nausea vomiting diarrhea Review of Systems General: Reports: 10 or more systems reviewed and unremarkable except in HPI and below Const: Denies: fever(s), chills or body aches Eyes: Denies: change in vision, blurry vision or photophobia ENMT: Reports: hoarseness; Denies: throat pain, enlarged tonsils, odynophagia or nasal congestion Card: Denies: chest pain, palpitations, irregular heart rhythm, edema, swelling of feet/ankles, lightheadedness, pre-syncope, dyspnea on exertion or orthopnea Resp: Denies: dyspnea, productive cough, non-productive cough, wheezing, stridor, pain on inspiration, change in phlegm color, hemoptysis or chest congestion GI: Denies: abdominal pain, nausea, vomiting, hematemesis, coffee ground emesis, dysphagia, heartburn, diarrhea, constipation, GI cramping, change in stool character, hematochezia or melena : Denies: flank pain, difficulty voiding, dysuria, urinary frequency, urinary urgency, urinary hesitancy or hematuria Musc: Denies: neck pain, back pain, extremity pain, joint swelling, joint warmth or deformity Neuro: Denies: headache(s), numbness in extremities, weakness in extremities, sensory changes, difficulty walking, frequent falls, dizziness, vertigo, behavioral changes, Slurred speech present or seizure-like activity Psych: Denies: anxiety, depression, suicidal ideation or homicidal ideation Endo: Denies: polyuria, polydipsia, tired all the time, cold intolerance or hot flashes Wilfredo/Lymph: Denies: easy bruising or easy bleeding Medications/Allergies Home Medications Medication Instructions Recorded Confirmed Last Taken Type escitalopram oxalate 20 mg tablet 20 mg PO DAILY 09/09/21 12/03/22 3 Days Ago History ~11/30/22 omeprazole 20 mg capsule,delayed 20 mg PO BID 09/09/21 12/03/22 3 Days Ago History release ~11/30/22 sole supports #1 ea 09/09/21 08/29/22 Unknown Rx telmisartan 20 mg tablet (Micardis) 20 mg PO DAILY 09/09/21 12/03/22 3 Days Ago History ~11/30/22 amlodipine 2.5 mg tablet 2.5 mg PO DAILY 08/29/22 12/03/22 3 Days Ago History ~11/30/22 apixaban 5 mg tablet (Eliquis) 5 mg PO BID 12/03/22 12/03/22 1 Day Ago History ~12/02/22 Allergies Allergy/AdvReac Type Severity Reaction Status Date / Time Androgenic Anabolic Steroid Allergy ADR-Insomni Verified 12/03/22 00:42 a hydroxyzine [From Atarax] Allergy Unknown Verified 12/03/22 00:41 Sulfa (Sulfonamide Allergy ALGY-Rash Verified 12/03/22 00:41 Antibiotics) PFSH Acute PFSH: Medical History Asthma HTN (hypertension) Social History Smoking and tobacco status: never smoked Alcohol intake: never Vitals/I&O/Wt Last Vital Signs Temp 99.1 F 12/02/22 18:04 Pulse 79 12/02/22 22:18 Resp 17 12/02/22 22:18 BP 146/96 12/02/22 22:18 Pulse Ox 91 12/02/22 22:18 O2 Del Method Nasal Cannula 12/02/22 18:16 O2 Flow Rate 2 12/02/22 18:16 Weight last 48 hrs Weight 84.822 kg Physical Exam Narrative: General: No acute distress, AO x3 HEENT: PERRLA, pupils bilaterally equal and reactive, pallors not present Chest: Normal vesicular breath sounds, no added sounds, equal good air entry bilaterally CVS: S1-S2 regular, no murmurs, no tachycardia, no gallops, no rubs Abdomen: Soft, nontender, no organomegaly, bowel sounds present Neuro: No focal deficits, no facial deformity, AO x3, power 5/5 in all limbs Data 12/03/22 03:27 12/03/22 03:27 Micro: Microbiology 12/02/22 23:11 Blood Culture - Preliminary Blood SPECIMEN COLLECTED 12/02/22 23:04 Blood Culture - Preliminary Blood SPECIMEN COLLECTED Other data: Signed [employer] [address] [place] [address]. [place] [address] CT Scan Report Signed Patient: Quin Stover Unit #: [id number] : 1940 Age/Sex: 82 / F ADM Date: 12/02/22 Loc: ER Room/Bed: Attending Dr: Ordering Provider/Ordering MD: Lam Spicer DO Date of Service: 12/02/22 Procedure(s): CT angio chest PE protcl [id number] Accession Number(s): [id number] Report Number: [id number] PROCEDURE INFORMATION: Exam: CTA Chest With Contrast Exam date and time: 12/02/2022 9:36 PM Age: 82 years old Clinical indication: Other: Hemopytsis; Additional info: Hemoptysis, abnormal cxr, HX of pe TECHNIQUE: Imaging protocol: Computed tomographic angiography of the chest with contrast. Sagittal and coronal reformatted images were created and reviewed. 3D rendering (Not supervised by radiologist): MIP and/or 3D reconstructed images were created by the technologist. Radiation optimization: All CT scans at this facility use at least one of these dose optimization techniques: automated exposure control; mA and/or kV adjustment per patient size (includes targeted exams where dose is matched to clinical indication); or iterative reconstruction. Contrast material: OMNI 350; Contrast volume: 100 ml; Contrast route: INTRAVENOUS (IV);? REPORTING DATA: Count of CT and Cardiac NM exams in prior 12 months: This patient has received [address] and 0 known cardiac nuclear medicine studies in the 12 months prior to the current study. COMPARISON: CT chest w con* [id number] 08/29/2022 11:28 AM RADIATION DOSE METRICS: Total DLP (mGy-cm): 348.29 FINDINGS: Pulmonary arteries: No filling defects in the pulmonary arteries to suggest pulmonary embolism. Aorta: Mild atherosclerotic changes in the visualized arteries. No evidence for aortic aneurysm. Evaluation for aortic dissection is limited due to the phase of contrast-enhancement. Lungs: Bronchial wall thickening in all pulmonary lobes bilaterally. Mucous plugging in the right and left lower lobes. Patchy alveolar airspace disease in the right and left lower lobes and more extensive airspace disease with air bronchograms in the left upper lobe and left lingula. Calcified granuloma in the left lower lobe. Pleural spaces: Trace left pleural effusion. No pneumothorax. Heart: Stable moderate enlargement of the heart. Coronary arteries: Mild atherosclerotic calcification in the coronary arteries. Esophagus: The esophagus is unremarkable. Mediastinal space: No mediastinal hematoma. No pneumomediastinum. Lymph nodes: Multiple enlarged lymph nodes in the mediastinum in bilateral demetris. The largest measures 1.9 cm in short axis (series 6, image 165). Diaphragm: Small hiatal hernia. Liver: The visualized liver is unremarkable. Gallbladder and bile ducts: The visualized gallbladder is unremarkable. Spleen: Calcified granuloma in the visualized spleen. Adrenal glands: The visualized right and left adrenal glands are unremarkable. Bones/joints: Multilevel degenerative changes of varying severity in the visualized spine. Degenerative changes in the spine and shoulders. Old fracture of the distal right clavicle. Soft tissues: No acute abnormality in the extrathoracic soft tissues. CT/CT angio chest PE protcl [id number] IMPRESSION: 1. ? Bronchial wall thickening in all pulmonary lobes bilaterally. Mucous plugging in the right and left lower lobes. Patchy alveolar airspace disease in the right and left lower lobes and more extensive airspace disease with air bronchograms in the left upper lobe and left lingula. Findings are suspicious for bronchopneumonia. Recommend followup chest imaging to insure resolution of these findings. 2. ? No evidence for pulmonary embolism. 3. ? Trace left pleural effusion. 4. ? Small hiatal hernia. 5. ? Nonspecific mediastinal and bilateral hilar lymphadenopathy, which could be reactive in nature. Followup imaging recommended to insure stability/resolution however. A&P Assessment and plan (1) Community acquired pneumonia: Admit to [facility] in view of community-acquired pneumonia CT of the chest shows evidence of bronchopneumonia. Additionally also with hypoxia requiring 2 L/min supplemental O2 Start antibiotic treatment with ceftriaxone 1 g IV every 24 hours and atypical coverage with azithromycin 500 mg daily Check sputum culture and Gram stain Check MRSA nares, COVID PCR, sputum culture, blood cultures. Scheduled nebulization with DuoNeb and budesonide Background emphysematous changes are noted, may have underlying COPD Supplemental O2 to keep saturation greater than 92% Monitor for serial improvement Qualifiers: Laterality: unspecified laterality Qualified Code(s): J18.9 - Pneumonia, unspecified organism (2) Hypoxia: (3) Hemoptysis: Hemoptysis with blood-streaked sputum likely as a result of excessive forceful coughing. We will add cough suppressants with Tessalon to her regimen Attestations Medical Necessity Statement*: Anticipate greater than 2 midnight admission for IV antibiotics, treatment of pneumonia hemoptysis and hypoxia. Coding Level of Care Code Acute Code for [facility] Diagnoses Community acquired pneumonia J18.9 Laterality: unspecified laterality Hypoxia R09.02 Hemoptysis R04.2
[2022-12-03] VITALS (14 sets, daily range): BP systolic 121–146; BP diastolic 56–79; PULSE 69–88; RESP 15–20; TEMP 36.8–37.6; O2SAT 90–96
[2022-12-03] MEDS: cefTRIAXone 1,000 MG in sodium chloride 0.9% (plus) 50 ML 100 MG IV ×2 (00:37→23:14)
[2022-12-03 00:51] LABS: Adenovirus Not Detected (NOT DETECT); Chlamydia Pneumoniae Not Detected (NOT DETECT); Coronavirus 229E,HKU1,NL63,OC4 Not Detected (NOT DETECT); Human Metapneumovirus Not Detected (NOT DETECT); Human Rhinovirus/Enterovirus Detected (NOT DETECT); Influenza A Not Detected (NOT DETECT); Influenza A H1 Not Detected (NOT DETECT); Influenza A H1-2009 Not Detected (NOT DETECT); Influenza A H3 Not Detected (NOT DETECT); Influenza B Not Detected (NOT DETECT); Mycoplasma Pneumoniae Not Detected (NOT DETECT); Parainfluenza Virus Type 1 Not Detected (NOT DETECT); Parainfluenza Virus Type 2 Not Detected (NOT DETECT); Parainfluenza Virus Type 3 Not Detected (NOT DETECT); Parainfluenza Virus Type 4 Not Detected (NOT DETECT); Respiratory Syncytial Virus A Not Detected (NOT DETECT); Respiratory Syncytial Virus B Not Detected (NOT DETECT); SARS-COV-2 Not Detected (NOT DETECT)
--- NOTE | 2022-12-03 01:00 | PC.NURSE ---
Patient states that she has do not resucitate papers and wants to be do not resucitate in the hospital. Dr. Luciano notified. Patient states that she has a living will and power of commercial attorney papers, but she can't remember who is on them. Patient states I need to get my papers updated.
[2022-12-03] MEDS: ipratropium-albuterol 3 mL Neb INHALATION ×4 (01:17→21:24)
[2022-12-03 01:35] LABS: Human Metapneumovirus Not Detected (NOT DETECT); Human Rhinovirus/Enterovirus Detected (NOT DETECT); Results from Genmark
[2022-12-03 04:03] LABS: Basophils % 0.2 %; Eosinophils % 0.2 %; Hematocrit 35.9 % (37.0-47.0); Hemoglobin 11.7 g/dL (11.5-15.3); Lymphocytes # 1.2 10^3/uL (0.8-4.8); Lymphocytes % 10.4 %; Mean Corpuscular HGB Conc 32.6 g/dL (30.0-36.0); Mean Corpuscular Hemoglobin 30.8 pg (28.0-34.0); Mean Corpuscular Volume 94.5 fl (81-99); Mean Platelet Volume 10.3 fL (7.4-10.4); Monocytes # 0.9 10^3/uL (0.2-0.9); Monocytes % 7.4 %; Neutrophils % 81.3 %; Nucleated Red Blood Cells % 0 %; Platelet Count 159 10^3/cmm (130-400); Red Cell Distribution Width 13.2 % (12.1-15.1); White Blood Count 11.6 10^3/uL (4.0-10.0)
[2022-12-03 04:28] LABS: Alanine Aminotransferase 6 U/L (0-33); Albumin Level 3.2 g/dL (3.5-5.2); Alkaline Phosphatase 60 U/L (35-105); Anion Gap 14.4 (5-19); Aspartate Amino Transferase 13 U/L (0-32); Blood Urea Nitrogen 17 mg/dL (8-23); Calcium 8.4 mg/dL (8.5-10.5); Carbon Dioxide 26 mmol/L (22-29); Chloride 101 mmol/L (98-107); Globulin 2.6 g/dL (1.3-4.6); Glucose 126 mg/dL (65-115); Osmolality Calculated 289 mOsm/kg (285-295); Potassium 3.4 mmol/L (3.5-5.1); Sodium 138 mmol/L (136-145); Total Bilirubin 0.6 mg/dL (0.15-1.2); Total Protein 5.8 g/dL (6.6-8.7)
[2022-12-03] MEDS: benzonatate 100 mg Capsule PO ×2 (06:47→18:13)
[2022-12-03] MEDS: budesonide 0.5 mg/2 mL Neb INHALATION ×2 (07:11→21:24)
[2022-12-03] MEDS: amlodipine 5 mg Tablet 2.5 MG PO (08:14)
[2022-12-03] MEDS: pantoprazole DR 40 mg Tablet PO (08:15)
[2022-12-03] MEDS: escitalopram 10 mg Tablet 20 MG PO (08:15)
--- NOTE | 2022-12-03 09:03 | USCV_ITS ---
Quin Stover Age: 82 Gender: F : 1940 Exam Date: 12/03/2022 10:32 Ordering Phys: Adin Hatch MD Technologist: CT Exam Location: [facility]_ Indication: pe FINDINGS: no dvt, minor reflux rt pop v/tianna v CONCLUSIONS No evidence of right lower extremity DVT. No evidence of left lower extremity DVT. Po Macario MD (Electronically Signed) Final Date: 08 Dec 2022 08:49 S
--- NOTE | 2022-12-03 09:03 | USCV_ITS ---
Ck Quin Age: 82 Gender: F : 1940 Exam Date: 12/03/2022 10:57 Ordering Phys: Adin Hatch MD Technologist: CT Exam Location: [facility] Indication: PE BP: 121 / 72 HR: 77 Rhythm: Sinus Technical Quality: MEASUREMENTS (Male / Female) Normal Values 2D ECHO LV Diastolic Diameter PLAX 5.1 cm 4.2 - 5.9 / 3.9 - 5.3 cm LV Systolic Diameter PLAX 3.0 cm LV Chamber Size 3.6 cm IVS Diastolic Thickness 0.9 cm 0.6 - 1.0 / 0.6 - 0.9 cm IVS Systolic Thickness 1.4 cm LVPW Diastolic Thickness 1.4 cm 0.6 - 1.0 / 0.6 - 0.9 cm LVPW Systolic Thickness 2.8 cm RV Chamber Size 3.5 cm LVOT Diameter 2.0 cm LV Ejection Fraction 2D Teich 72.2 % LV Ejection Fraction MOD 2C 63.9 % LV Ejection Fraction 2C AL 64.3 % LA Diameter 4.0 cm LA Width 4.2 cm LA Height 5.0 cm RA Width 4.2 cm RA Height 4.9 cm Aorta at Sinotubular Diameter 2.6 cm IVC Diameter 2.0 cm M-MODE Aortic Annulus Diameter 3.1 cm LA Ao Ratio MM 1.5 MV E Point Septal Separation 0.4 cm DOPPLER AV Peak Velocity 198.0 cm/s LVOT Peak Velocity 114.0 cm/s AV Area Cont Eq vti 2.0 cm squared AV Area Cont Eq pk 1.9 cm squared MV Area PHT 2.8 cm squared Mitral E to A Ratio 1.1 MV E' Velocity 58.0 cm/s Mitral E to MV E' Ratio 12.3 Mitral E to LV E' Lateral Ratio 10.7 Mitral E to LV E' Septal Ratio 14.5 TR Peak Velocity 381.0 cm/s TR Peak Gradient 58.1 mmHg TR Mean Velocity 282.4 cm/s TR Mean Gradient 36.1 mmHg TR Velocity Time Integral 100.1 cm TV Peak E Velocity 124.0 cm/s Right Atrial Pressure 3.0 mmHg Pulmonary Artery Systolic Pressu 61.1 mmHg FINDINGS Left Ventricle Normal left ventricular size and systolic function, EF 68 %. No regional wall motion abnormalities. Grade I/IV diastolic dysfunction (abnormal relaxation filling pattern), normal to mildly elevated filling pressures. Right Ventricle Normal right ventricular size and systolic function. Right Atrium The right atrium is normal in size. Left Atrium The left atrium is normal in size. Mitral Valve Mild mitral annular calcification. Trace mitral valve regurgitation. Aortic Valve Thickened aortic valve. Aortic valve sclerosis. Tricuspid Valve [id number] tricuspid valve regurgitation .estimated pulmonary artery peak systolic pressure 61 mmHg Pulmonic Valve No gross abnormalities noted Pericardium Normal pericardium without effusion. Aorta Normal ascending aorta dimension. IVC Normal inferior vena cava. CONCLUSIONS Normal left ventricular size and systolic function, EF 68 %. No regional wall motion abnormalities. Grade I/IV diastolic dysfunction (abnormal relaxation filling pattern), normal to mildly elevated filling pressures. Mild mitral annular calcification. Trace mitral valve regurgitation. Jnoj-kj-qhsmeljz tricuspid valve regurgitation .estimated pulmonary artery peak systolic pressure 61 mmHg. Aortic valve sclerosis. There is no pericardial effusion. There are no intracardiac masses. Compared to the study from 08/29/2022, there may not be a significant change Dr Jovany Polk MD FACC (Electronically Signed) Final Date: 03 Dec 2022 17:34 S
--- NOTE | 2022-12-03 09:04 | ECG_ITS ---
[facility] Test Date: 2022-12-03 Pat Name: Quin Stover Department: Room: 269 Gender: Female Fur Clipper: : 1940 Requested By: Adin Hatch Order Number: [id number] Deirdre MD: Frantz Lilly M.D. Measurements Intervals Alexander Rate: 75 P: 65 ID: [id number] QRS: -2 QRSD: 90 T: 59 QT: 350 QTc: 391 Interpretive Statements SINUS RHYTHM MODERATE VOLTAGE CRITERIA FOR LVH, CONSIDER NORMAL VARIANT [MEETS CRITERIA IN ONE OF: R(aVL), S(V1), R(V5), R(V5/V6)+S(V1)] NONSPECIFIC T-WAVE ABNORMALITY Compared to ECG 12/02/2022 18:14:05 T-wave abnormality now present Myocardial infarct finding no longer present Electronically Signed On 12-03-2022 17:48:15 CDT by Frantz Lilly M.D. [id number]
[2022-12-03] MEDS: potassium chloride ER 20 mEq Tablet 40 MEQ PO (09:31)
[2022-12-03] MEDS: heparin drip 25,000 UNIT/500 ML PREMIX 44.34 UNIT IV (10:18)
[2022-12-03] MEDS: heparin 5,000 unit/mL INJ 1 mL IV (10:19)
[2022-12-03 10:48] LABS: Troponin(5th) Baseline 15 ng/L (0-10)
--- NOTE | 2022-12-03 12:07 | ECG_ITS ---
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 Measurements Intervals Mccormick Rate: 77 P: 50 MI: 168 QRS: -4 QRSD: 85 T: 64 QT: 381 QTc: 434 Interpretive Statements SINUS RHYTHM MODERATE VOLTAGE CRITERIA FOR LVH, CONSIDER NORMAL VARIANT [MEETS CRITERIA IN ONE OF: R(aVL), S(V1), R(V5), R(V5/V6)+S(V1)] NONSPECIFIC T-WAVE ABNORMALITY Compared to ECG 12/03/2022 09:34:41 No significant changes Electronically Signed On 12-03-2022 17:56:51 CDT by Frantz Lilly M.D. [id number]
[2022-12-03 12:47] LABS: Troponin 5 2HR 14.68 ng/L (0-10)
[2022-12-03 13:09] LABS: Troponin 5 2HR Delta -0.32 ABS# (0-10)
[2022-12-03 16:49] LABS: Troponin 5 6HR 12.65 ng/L (0-10); Troponin 5 6HR Delta -2.35 ng/L (0-12)
--- NOTE | 2022-12-03 17:05 | PM.PN ---
Subjective Subjective: Patient was seen this morning, she denies any recurrent hemoptysis, she is feeling a bit better, continues to have some degree of cough, feels weakness, fatigue, tiredness Vitals/I&O/Wt Last Vital Signs Temp 98.6 F 12/03/22 15:29 Pulse 82 12/03/22 15:29 Resp 17 12/03/22 15:29 BP 122/70 12/03/22 15:29 Pulse Ox 92 12/03/22 15:29 O2 Del Method Nasal Cannula 12/03/22 15:29 O2 Flow Rate 1 12/03/22 14:00 12/03/22 12/03/22 12/03/22 06:59 14:59 22:59 Intake Total 100 / 100 480 / 480 Output Total 250 / 250 Balance -150 / -150 480 / 480 Weight last 48 hrs Weight 88.677 kg Weight 84.822 kg Physical Exam Const: COMMON NORMALS: no acute distress and patient oriented x3 Resp: COMMON NORMALS: normal respiratory effort, No retractions, No use of accessory muscles and clear to auscultation bilaterally AUSCULTATION: clear to auscultation bilaterally Cardio: COMMON NORMALS: regular rate, regular rhythm, S1 normal heart sound present and S2 normal heart sound present RATE: regular rate RHYTHM: regular rhythm HEART SOUNDS: S1 normal heart sound present and S2 normal heart sound present GI: COMMON NORMALS: Normal to inspection, nondistended, normoactive bowel sounds present and non-tender Extremity: COMMON NORMALS: no pedal edema Neuro: COMMON NORMALS: patient oriented x3 Psych: COMMON NORMALS: mental status grossly normal Data 12/03/22 03:27 12/03/22 03:27 Micro: Microbiology 12/03/22 00:30 MRSA Culture - Final Nose 12/02/22 00:30 Legionella Urinary Antigen - Final Urine,Voided Bacterial Antigens - Final 12/02/22 23:11 Blood Culture - Preliminary Blood SPECIMEN COLLECTED 12/02/22 23:04 Blood Culture - Preliminary Blood SPECIMEN COLLECTED A&P Assessment and plan (1) Community acquired pneumonia: Admit to [facility] in view of community-acquired pneumonia CT of the chest shows evidence of bronchopneumonia. Additionally also with hypoxia requiring 2 L/min supplemental O2 Start antibiotic treatment with ceftriaxone 1 g IV every 24 hours and atypical coverage with azithromycin 500 mg daily Check sputum culture and Gram stain Check MRSA nares, COVID PCR, sputum culture, blood cultures. Scheduled nebulization with DuoNeb and budesonide Background emphysematous changes are noted, may have underlying COPD Supplemental O2 to keep saturation greater than 92% Monitor for serial improvement Qualifiers: Laterality: unspecified laterality Qualified Code(s): J18.9 - Pneumonia, unspecified organism (2) Hypoxia: (3) Hemoptysis: Hemoptysis with blood-streaked sputum likely as a result of excessive forceful coughing. We will add cough suppressants with Tessalon to her regimen Monitor for recurrent hemoptysis as patient is on heparin drip (4) History of pulmonary embolism: - History of pulmonary embolism, with significant embolic burden greatest within the right pulmonary artery, right lower lobe artery, smaller emboli in the right middle lobe, and left lower lobe, with right heart strain -Repeat CT during this hospitalization shows no recurrent evidence of pulmonary embolism, no filling defects -As she has hemoptysis we will hold off on Eliquis for now -Switch to therapeutic Lovenox, monitor for recurrent hemoptysis -I have repeated the venous ultrasound, repeat cardiac echo -Etiology behind pulmonary embolism is unclear (5) Rhinovirus: - Monitor (6) NSTEMI (non-ST elevated myocardial infarction): - Likely secondary to community-acquired pneumonia (7) Hypokalemia: (8) Chronic kidney disease: Plan Plan for today continue antibiotic therapy, venous ultrasound, cardiac echo, heparin drip, monitor for hemoptysis Attestations Medical Necessity Statement*: Patient requires hospitalization for pneumonia, rhinovirus, hemoptysis, history of pulmonary embolism Diagnoses Community acquired pneumonia J18.9 Laterality: unspecified laterality Hypoxia R09.02 Hemoptysis R04.2 History of pulmonary embolism Z86.711 Rhinovirus B34.8 NSTEMI (non-ST elevated myocardial infarction) I21.4 Hypokalemia E87.6 Chronic kidney disease N18.9
[2022-12-03 17:12] LABS: Partial Thromboplastin Time 160.9 SECONDS (23.9-36.7)
[2022-12-03 21:34] LABS: Partial Thromboplastin Time 24.4 SECONDS (23.9-36.7)
--- NOTE | 2022-12-03 22:05 | PC.NURSE ---
Attempt to contact Ankita about PTT and Heparin drip. No answer. Voicemail left.
--- NOTE | 2022-12-03 22:09 | PC.NURSE ---
Dr. Luciano notified of Heparin drip being paused during day shift due to critical PTT. Notified of current PTT results. Dr. Luciano ordered to start Heparin drip back at the same rate is was running at before. Dr. Luciano notified that when it was running at that rate, the PTT came back critical. Again, ordered to start the Heparin drip back at the same rate that it was running before.
--- NOTE | 2022-12-03 22:24 | PC.NURSE ---
On mar, it shows rate of Heparin drip at 44 ml/hr from previous shift. When looking on the IV pump and Heparin drip papers, it seems that this was a documentation error and that the Heparin drip was running at 25 ml/hr.
[2022-12-04] VITALS (14 sets, daily range): BP systolic 128–147; BP diastolic 68–81; PULSE 62–79; RESP 15–22; TEMP 36.6–37.6; O2SAT 93–96
[2022-12-04] MEDS: benzonatate 100 mg Capsule PO (03:33)
[2022-12-04 05:17] LABS: Basophils % 0.2 %; Eosinophils # 0.1 10^3/uL (0.0-0.8); Eosinophils % 1.4 %; Hematocrit 34.1 % (37.0-47.0); Hemoglobin 10.8 g/dL (11.5-15.3); Lymphocytes # 1.2 10^3/uL (0.8-4.8); Lymphocytes % 14.7 %; Mean Corpuscular HGB Conc 31.7 g/dL (30.0-36.0); Mean Corpuscular Hemoglobin 30.7 pg (28.0-34.0); Mean Corpuscular Volume 96.9 fl (81-99); Mean Platelet Volume 10.4 fL (7.4-10.4); Monocytes # 0.6 10^3/uL (0.2-0.9); Monocytes % 7.5 %; Neutrophils # 6.06 10^3/uL (1.8-7.7); Neutrophils % 75.7 %; Nucleated Red Blood Cells % 0 %; Platelet Count 161 10^3/cmm (130-400); Red Blood Count 3.52 10^6/uL (4.1-5.3); Red Cell Distribution Width 13.2 % (12.1-15.1)
[2022-12-04 05:41] LABS: Partial Thromboplastin Time 96.8 SECONDS (23.9-36.7)
[2022-12-04 05:45] LABS: NT Pro B Type Natriuretic Pept 565 pg/mL (0-450); Procalcitonin 1.37 ng/mL (0-0.5)
[2022-12-04 06:01] LABS: Alanine Aminotransferase 7 U/L (0-33); Alkaline Phosphatase 46 U/L (35-105); Aspartate Amino Transferase 12 U/L (0-32); Blood Urea Nitrogen 20 mg/dL (8-23); C Reactive Protein 217.4 mg/L (0.0-4.9); Calcium 8.4 mg/dL (8.5-10.5); Carbon Dioxide 23 mmol/L (22-29); Globulin 2.8 g/dL (1.3-4.6); Glucose 122 mg/dL (65-115); Magnesium 1.9 mg/dL (1.7-2.3); Total Bilirubin 0.3 mg/dL (0.15-1.2); Total Protein 5.8 g/dL (6.6-8.7)
[2022-12-04 06:12] LABS: Anion Gap 15.9 (5-19); Chloride 103 mmol/L (98-107); Potassium 3.9 mmol/L (3.5-5.1); Sodium 138 mmol/L (136-145)
[2022-12-04 06:14] LABS: Osmolality Calculated 290 mOsm/kg (285-295)
[2022-12-04] MEDS: ipratropium-albuterol 3 mL Neb INHALATION ×3 (08:31→21:01)
[2022-12-04] MEDS: budesonide 0.5 mg/2 mL Neb INHALATION ×2 (08:31→21:01)
[2022-12-04] MEDS: amlodipine 5 mg Tablet 2.5 MG PO (09:39)
[2022-12-04] MEDS: pantoprazole DR 40 mg Tablet PO (09:39)
[2022-12-04] MEDS: escitalopram 10 mg Tablet 20 MG PO (09:40)
--- NOTE | 2022-12-04 13:06 | PC.CHAP ---
Pastoral Care Encounter/Spiritual Assessment Type of Contact [] Declined granulating blender visit [] Patient/Family/Request visit [] Outpatient visit [] Follow-up visit [] Physician referral [] Code/Alert [x] Routine visit [] Staff referral [] Actively dying [] Patient sleeping [] Family support [] [] Out of room [] Palliative care [] [x] Receiving care in room [] Pre-surgical visit [] Trauma [] Long length of stay [] ICU visit [] Other: Relational/Emotional Strength [x] Patient feels connected with others/family/visitors/staff [] Distress [] Loneliness/isolation [] Abandonment Spirituality of Patient [x] Person of Nora [] Attends Jewish of their Nora [x] Believes in Prayer [] Reads Bible or Congregation materials [] There are Spiritual issues to be addressed Radio Officer Interventions [x] Prayer [x] Active listening [x] Non-anxious presence [x] Spiritual/emotional support [] Crisis/trauma care [x] Spiritual counseling [] Bereavement support [] Provided bereavement packet [] Provided Bible/devotional materials [] Provided toy/stuffed animal, coloring book to patient or family member [] Provided Communion [] Anointing/[place] [] Salvation [x] Completed spiritual assessment [] Other: Impact on Illness or Injury [] Angry [] Fearful [] Anxious [] Often cries [] Exhaustion [] Unable to work [] Unable to attend hinduism [] Unable to walk/stand [] Unable to read [] Unable to drive [] Unable to eat/drink [] Unable to sleep [] Unable to be with family [] Patient intubated [] Other: Summary asher foley has a good attitude going home Time spent with patient 10 mins
[2022-12-04 13:11] LABS: Partial Thromboplastin Time 49.8 SECONDS (23.9-36.7)
[2022-12-04] MEDS: benzonatate 100 mg Capsule 200 MG PO (13:17)
[2022-12-04] MEDS: heparin 5,000 unit/mL INJ 1 mL IV (15:04)
[2022-12-04] MEDS: heparin drip 25,000 UNIT/500 ML PREMIX 22 UNIT IV (15:11)
--- NOTE | 2022-12-04 17:44 | P.PN_ITS ---
Subjective Subjective: Patient was seen this morning, she reports feeling fatigue, malaise this morning, she continues to complain of intermittent shortness of breath, fatigue, malaise, did have 1 episode of bloody cough low but it was very minimal, and it happened after breathing treatment that caused a lot of irritation in the back of her throat causing her to cough Vitals/I&O/Wt Last Vital Signs Temp 99.7 F H 12/04/22 15:30 Pulse 78 12/04/22 15:30 Resp 22 H 12/04/22 15:30 BP 147/68 12/04/22 15:30 Pulse Ox 95 12/04/22 15:30 O2 Del Method Nasal Cannula 12/04/22 15:30 O2 Flow Rate 1 12/04/22 13:52 12/04/22 12/04/22 12/04/22 06:59 14:59 22:59 Intake Total 141.837 / 1170.000 580 / 580 Output Total 200 / 200 Balance 141.837 / 870.000 380 / 380 Weight last 48 hrs Weight 88.677 kg Weight 84.822 kg Physical Exam Const: COMMON NORMALS: no acute distress and patient oriented x3 Resp: COMMON NORMALS: normal respiratory effort, No retractions, No use of accessory muscles and clear to auscultation bilaterally AUSCULTATION: clear to auscultation bilaterally Cardio: COMMON NORMALS: regular rate, regular rhythm, S1 normal heart sound present and S2 normal heart sound present RATE: regular rate RHYTHM: regular rhythm HEART SOUNDS: S1 normal heart sound present and S2 normal heart sound present GI: COMMON NORMALS: Normal to inspection, nondistended, normoactive bowel sounds present and non-tender Extremity: COMMON NORMALS: no pedal edema Neuro: COMMON NORMALS: patient oriented x3 Psych: COMMON NORMALS: mental status grossly normal Data 12/04/22 04:15 12/04/22 04:15 Micro: Microbiology 12/03/22 03:00 Gram Stain - Final Sputum - Expectorated Sputum Sputum Culture - Preliminary 12/02/22 23:11 Blood Culture - Preliminary Blood NEGATIVE TO DATE 12/02/22 23:04 Blood Culture - Preliminary Blood NEGATIVE TO DATE 12/03/22 00:30 MRSA Culture - Final Nose A&P Assessment and plan (1) Community acquired pneumonia: Admit to MedSurg in view of community-acquired pneumonia CT of the chest shows 1. ? Bronchial wall thickening in all pulmonary lobes bilaterally. Mucous plugging in the right and left lower lobes. Patchy alveolar airspace disease in the right and left lower lobes and more extensive airspace disease with air bronchograms in the left upper lobe and left lingula. Findings are suspicious for bronchopneumonia. Recommend followup chest imaging to insure resolution of these findings. 2. ? No evidence for pulmonary embolism. 3. ? Trace left pleural effusion. 4. ? Small hiatal hernia. 5. ? Nonspecific mediastinal and bilateral hilar lymphadenopathy, which could be reactive in nature. Followup imaging recommended to insure stability/resolution however. 6. ? Incidental/nonacute findings are listed in the report. -Procalcitonin 1.37, CRP 217 ?Additionally also with hypoxia requiring 2 L/min supplemental O2 Start antibiotic treatment with ceftriaxone 1 g IV every 24 hours and atypical coverage with azithromycin 500 mg daily Check sputum culture and Gram stain Check MRSA nares, COVID PCR, sputum culture, blood cultures. Scheduled nebulization with DuoNeb and budesonide Background emphysematous changes are noted, may have underlying COPD Supplemental O2 to keep saturation greater than 92% Monitor for serial improvement Qualifiers: Laterality: unspecified laterality Qualified Code(s): J18.9 - Pneum onia, unspecified organism (2) Hypoxia: (3) Hemoptysis: Hemoptysis with blood-streaked sputum likely as a result of excessive forceful coughing. Increased dose of Tessalon Perles to 200 3 times daily, add on Tylenol with codeine Monitor for recurrent hemoptysis as patient is on heparin drip (4) History of pulmonary embolism: - History of pulmonary embolism, with significant embolic burden greatest within the right pulmonary artery, right lower lobe artery, smaller emboli in the right middle lobe, and left lower lobe, with right heart strain -Repeat CT during this hospitalization shows no recurrent evidence of pulmonary embolism, no filling defects -As she has hemoptysis we will hold off on Eliquis for now -Switch to therapeutic Lovenox, monitor for recurrent hemoptysis -I have repeated the venous ultrasound, repeat cardiac echo -Etiology behind pulmonary embolism is unclear (5) Rhinovirus: - Monitor (6) NSTEMI (non-ST elevated myocardial infarction): - Likely secondary to community-acquired pneumonia ?Normal left ventricular size and systolic function, EF 68 %. No ?regional wall motion abnormalities. Grade I/IV diastolic ?dysfunction (abnormal relaxation filling pattern), normal to ?mildly elevated filling pressures. ?Mild mitral annular calcification. Trace mitral valve ?regurgitation. ?[id number] tricuspid valve regurgitation .estimated ?pulmonary artery peak systolic pressure 61 mmHg. ?Aortic valve sclerosis. ?There is no pericardial effusion. ?There are no intracardiac masses. ?Compared to the study from 08/29/2022, there may not be a ?significant change (7) Hypokalemia: Resolved (8) Chronic kidney disease: Plan Plan for today continue antibiotic therapy, venous ultrasound, cardiac echo, heparin drip, monitor for hemoptysis, aggressively manage hemoptysis with Tessalon Perles, Tylenol with codeine repeat chest x-ray tomorrow, if she continues to have hemoptysis, then we will have to discuss with pulmonary about doing a bronchoscopy, reviewed blood work, CRP, Pro-Marcus, hemoglobin, e chocardiogram results, Attestations Medical Necessity Statement*: Patient requires hospitalization for bronchopneumonia, recurrent hemoptysis, Diagnoses Community acquired pneumonia J18.9 Laterality: unspecified laterality Hypoxia R09.02 Hemoptysis R04.2 History of pulmonary embolism Z86.711 Rhinovirus B34.8 NSTEMI (non-ST elevated myocardial infarction) I21.4 Hypokalemia E87.6 Chronic kidney disease N18.9
[2022-12-04] MEDS: azithromycin 500 MG in sodium chloride 0.9% 250 ML 250 MG IV (18:06)
[2022-12-04 21:29] LABS: Partial Thromboplastin Time 68.1 SECONDS (23.9-36.7)
[2022-12-04] MEDS: cefTRIAXone 1,000 MG in sodium chloride 0.9% (plus) 50 ML 100 MG IV (23:38)
[2022-12-05] VITALS (11 sets, daily range): BP systolic 138–151; BP diastolic 67–79; PULSE 60–74; RESP 16–20; TEMP 36.7–37.1; O2SAT 92–98
[2022-12-05 03:28] LABS: Basophils % 0.3 %; Eosinophils # 0.2 10^3/uL (0.0-0.8); Eosinophils % 3.2 %; Hematocrit 33.4 % (37.0-47.0); Hemoglobin 10.6 g/dL (11.5-15.3); Lymphocytes # 1.2 10^3/uL (0.8-4.8); Mean Corpuscular HGB Conc 31.7 g/dL (30.0-36.0); Mean Corpuscular Hemoglobin 30.6 pg (28.0-34.0); Mean Corpuscular Volume 96.5 fl (81-99); Mean Platelet Volume 10.1 fL (7.4-10.4); Monocytes # 0.6 10^3/uL (0.2-0.9); Monocytes % 8.5 %; Neutrophils # 4.55 10^3/uL (1.8-7.7); Neutrophils % 69.5 %; Nucleated Red Blood Cells % 0 %; Platelet Count 191 10^3/cmm (130-400); Red Blood Count 3.46 10^6/uL (4.1-5.3); Red Cell Distribution Width 13.1 % (12.1-15.1); White Blood Count 6.6 10^3/uL (4.0-10.0)
[2022-12-05 03:55] LABS: Alanine Aminotransferase 12 U/L (0-33); Albumin Level 3.1 g/dL (3.5-5.2); Alkaline Phosphatase 53 U/L (35-105); Anion Gap 15.1 (5-19); Aspartate Amino Transferase 17 U/L (0-32); Blood Urea Nitrogen 18 mg/dL (8-23); C Reactive Protein 154.5 mg/L (0.0-4.9); Calcium 8.5 mg/dL (8.5-10.5); Carbon Dioxide 24 mmol/L (22-29); Chloride 106 mmol/L (98-107); Globulin 2.9 g/dL (1.3-4.6); Glucose 102 mg/dL (65-115); Osmolality Calculated 294 mOsm/kg (285-295); Potassium 4.1 mmol/L (3.5-5.1); Sodium 141 mmol/L (136-145); Total Bilirubin 0.2 mg/dL (0.15-1.2)
[2022-12-05 03:56] LABS: NT Pro B Type Natriuretic Pept 928 pg/mL (0-450); Procalcitonin 0.86 ng/mL (0-0.5)
--- NOTE | 2022-12-05 06:00 | XR_ITS ---
WS: [id number] Portable AP upright chest, 12/05/2022 Clinical Data: sob Comparison: Portable chest, 12/02/2022 Findings: The patchy opacity in the left lower lobe extending to the lateral chest wall has not valle ed. No nodules or masses are seen. The right lung is clear. The heart is normal. No pneumothorax is s een. The pulmonary vascularity is not increased. Monitor leads are on the chest wall. There is an old fracture of the midshaft of the right clavicle. XR/XR chest 1V portable [id number] Impression: No change in patchy left lower lobe opacity which may represent atelectasis and or pneumonia.
[2022-12-05] MEDS: ipratropium-albuterol 3 mL Neb INHALATION ×3 (08:10→19:41)
[2022-12-05] MEDS: budesonide 0.5 mg/2 mL Neb INHALATION ×2 (08:10→19:41)
[2022-12-05] MEDS: escitalopram 10 mg Tablet 20 MG PO (08:37)
[2022-12-05] MEDS: pantoprazole DR 40 mg Tablet PO (08:37)
[2022-12-05] MEDS: amlodipine 5 mg Tablet 2.5 MG PO (08:37)
[2022-12-05] MEDS: benzonatate 100 mg Capsule 200 MG PO ×2 (08:37→17:03)
--- NOTE | 2022-12-05 08:58 | PC.SOCIAL ---
IMM update IMM updated with patient. Verbalized an understanding. Copy Pg 2 provided. Initialled, dated, timed, and placed in chart.
[2022-12-05] MEDS: lanolin oint 7 gm 1 APPLIC TOPICAL (10:11)
[2022-12-05] MEDS: FUROsemide 10 mg/mL SDV 2mL 20 MG IVP (10:13)
--- NOTE | 2022-12-05 14:51 | P.PN_ITS ---
Subjective Subjective: Patient was seen this morning, she tells me she is feeling better afebrile overnight less short of breath but she continues to have scant hemoptysis, spoke to Dr. Bueno he will see, consideration of bronchoscopy may on clinical progress, Vitals/I&O/Wt Last Vital Signs Temp 98.1 F 12/05/22 12:00 Pulse 66 12/05/22 14:00 Resp 16 12/05/22 14:00 BP 151/77 12/05/22 12:00 Pulse Ox 96 12/05/22 14:00 O2 Del Method Nasal Cannula 12/05/22 14:00 O2 Flow Rate 2 12/05/22 14:00 12/04/22 12/05/22 12/05/22 22:59 06:59 14:59 Intake Total 730 / 1310 300 / 1610 480 / 480 Balance 730 / 1110 300 / 1410 480 / 480 Physical Exam Const: COMMON NORMALS: no acute distress and patient oriented x3 Resp: COMMON NORMALS: normal respiratory effort, No retractions, No use of accessory muscles and clear to auscultation bilaterally AUSCULTATION: clear to auscultation bilaterally Cardio: COMMON NORMALS: regular rate, regular rhythm, S1 normal heart sound present and S2 normal heart sound present RATE: regular rate RHYTHM: regular rhythm HEART SOUNDS: S1 normal heart sound present and S2 normal heart sound present GI: COMMON NORMALS: Normal to inspection, nondistended, normoactive bowel sounds present, Soft to palpation and non-tender PALPATION: Yes Soft to palpation Extremity: COMMON NORMALS: no pedal edema Neuro: COMMON NORMALS: patient oriented x3 Psych: COMMON NORMALS: mental status grossly normal Data 12/05/22 03:12 12/05/22 03:12 Micro: Microbiology 12/03/22 03:00 Gram Stain - Final Sputum - Expectorated Sputum Sputum Culture - Preliminary A&P Assessment and plan (1) Community acquired pneumonia: Admit to [facility] in view of community-acquired pneumonia CT of the chest shows 1. ? Bronchial wall thickening in all pulmonary lobes bilaterally. Mucous plugging in the right and left lower lobes. Patchy alveolar airspace disease in the right and left lower lobes and more extensive airspace disease with air bronchograms in the left upper lobe and left lingula. Findings are suspicious for bronchopneumonia. Recommend followup chest imaging to insure resolution of these findings. 2. ? No evidence for pulmonary embolism. 3. ? Trace left pleural effusion. 4. ? Small hiatal hernia. 5. ? Nonspecific mediastinal and bilateral hilar lymphadenopathy, which could be reactive in nature. Followup imaging recommended to insure stability/resolution however. 6. ? Incidental/nonacute findings are listed in the report. -Procalcitonin 1.37, CRP 217 ?Additionally also with hypoxia requiring 2 L/min supplemental O2 Continue antibiotic treatment with ceftriaxone 1 g IV every 24 hours and atypical coverage with azithromycin 500 mg daily Check sputum culture and Gram stain Check MRSA nares, COVID PCR, sputum culture, blood cultures. Scheduled nebulization with DuoNeb and budesonide Background emphysematous changes are noted, may have underlying COPD Supplemental O2 to keep saturation greater than 92% Monitor for serial improvement Chest x-ray this morning shows left lower lobe opacity Qualifiers: Laterality: unspecified laterality Qualified Code(s): J18.9 - Pneumonia, unspecified organism (2) Hypoxia: (3) Hemoptysis: Hemoptysis with blood-streaked sputum likely as a result of excessive forceful coughing. Increased dose of Tessalon Perles to 200 3 times daily, add on Tylenol with codeine Monitor for recurrent hemoptysis as patient is on heparin drip As she continues to have hemoptysis we will consult pulmonary for consideration of bronchoscopy (4) History of pulmonary embolism: - History of pulmonary embolism, with significant embolic burden greatest within the right pulmonary artery, right lower lobe artery, smaller emboli in the right middle lobe, and left lower lobe, with right heart strain -Repeat CT during this hospitalization shows no recurrent evidence of pulmonary embolism, no filling defects -As she has hemoptysis we will hold off on Eliquis for now -Switch to therapeutic Lovenox, monitor for recurrent hemoptysis -I have repeated the venous ultrasound, repeat cardiac echo -Etiology behind pulmonary embolism is unclear (5) Rhinovirus: - Monitor (6) NSTEMI (non-ST elevated myocardial infarction): - Likely secondary to community-acquired pneumonia ?Normal left ventricular size and systolic function, EF 68 %. No ?regional wall motion abnormalities. Grade I/IV diastolic ?dysfunction (abnormal relaxation filling pattern), normal to ?mildly elevated filling pressures. ?Mild mitral annular calcification. Trace mitral valve ?regurgitation. ?Ojrm-gb-uiqscapt tricuspid valve regurgitation .estimated ?pulmonary artery peak systolic pressure 61 mmHg. ?Aortic valve sclerosis. ?There is no pericardial effusion. ?There are no intracardiac masses. ?Compared to the study from 08/29/2022, there may not be a ?significant change (7) Hypokalemia: Resolved (8) Chronic kidney disease: Plan Plan for today continue antibiotic therapy, v aggressively manage hemoptysis, speak to pulmonary, consideration of bronchoscopy, spoke to nursing staff Attestations Medical Necessity Statement*: Patient requires hospitalization for pneumonia, NSTEMI, recurrent scant hemoptysis and High MDM includes number and complexity of problems actively addressed during encounter, amount and/or complexity of data reviewed/ordered and described risk of complication, morbidity or mortality of management as documented Diagnoses Community acquired pneumonia J18.9 Laterality: unspecified laterality Hypoxia R09.02 Hemoptysis R04.2 History of pulmonary embolism Z86.711 Rhinovirus B34.8 NSTEMI (non-ST elevated myocardial infarction) I21.4 Hypokalemia E87.6 Chronic kidney disease N18.9
[2022-12-05 16:04] LABS: Partial Thromboplastin Time 55.8 SECONDS (23.9-36.7)
[2022-12-05] MEDS: heparin drip 25,000 UNIT/500 ML PREMIX 22 UNIT IV (16:30)
--- NOTE | 2022-12-05 16:45 | P.CONIM_ITS ---
Providers/Reason For Consult Consulting Physician/Specialty*: Nate Sandoval FCCP/pulmonary critical care Reason for Consult*: Hemoptysis in patient with suspected bronchopneumonia with extensive airspace disease in left upper lobe and left lingula Requesting Physician: Adin Hatch MD Attending Physician: Adin Hatch MD Primary Care Provider: DIONTE Norton History of Present Illness History of Present Illness Quin Stover is a 82 year old female with past medical history of CKD, PE in August 2022, asthma presented to ED on 12/02/2022 for productive cough of 3 weeks. During admission she has informed admitting vision that she had hemoptysis for 1 day with few clots that prompted her to come to ER. CT showed evidence of bronchopneumonia in left upper lobe and lingula. She was admitted to [facility] for community-acquired pneumonia and started on ceftriaxone and azithromycin. Sputum culture Gram stain showed few gram-positive cocci in pairs-final culture still pending. MRSA nares negative. Legionella urine antigen and urine bacterial antigens were all negative. Blood cultures are pending. She reported not moving much in the month of August-drove to [place] which is 2 hours away-attended a -drove back 2 hours to [place]-and then she started having shortness of breath and a CTA in the emergency room showed significant pulmonary embolic burden in right pulmonary artery and right lower lobe. Smaller emboli in right middle and left lower lobe and there was evidence of right heart strain. She was on Eliquis at home. But due to her current scant hemoptysis -her Eliquis was held and started on heparin drip. There is a drop in her H&H from 13.3/41to 10.6/33, component of the drop can be hemodilution due to IV fluids and antibiotics. Patient denied coughing out any preet blood. She has small flecks of blood streaks in her sputum. Pulmonary critical care consulted for possible bronchoscopic evaluation I have seen patient at bedside today. Patient's at bedside She has small flecks of blood streaks in her sputum. She denied coughing out any preet blood. Currently she is requiring 2 L nasal cannula to maintain saturations. Review of Systems General: Reports: 10 or more systems reviewed and unremarkable except in HPI and below Medications/Allergies Home Medications Medication Instructions Recorded Confirmed Last Taken Type escitalopram oxalate 20 mg tablet 20 mg PO DAILY 09/09/21 12/03/22 3 Days Ago History ~11/30/22 omeprazole 20 mg capsule,delayed 20 mg PO BID 09/09/21 12/03/22 3 Days Ago History release ~11/30/22 sole supports #1 ea 09/09/21 12/03/22 Unknown Rx telmisartan 20 mg tablet (Micardis) 20 mg PO DAILY 09/09/21 12/03/22 3 Days Ago History ~11/30/22 amlodipine 2.5 mg tablet 2.5 mg PO DAILY 08/29/22 12/03/22 3 Days Ago History ~11/30/22 apixaban 5 mg tablet (Eliquis) 5 mg PO BID 12/03/22 12/03/22 1 Day Ago History ~12/02/22 Allergies Allergy/AdvReac Type Severity Reaction Status Date / Time Androgenic Anabolic Steroid Allergy ADR-Insomni Verified 12/03/22 00:42 a hydroxyzine [From Atarax] Allergy Unknown Verified 12/03/22 00:41 Sulfa (Sulfonamide Allergy ALGY-Rash Verified 12/03/22 00:41 Antibiotics) Current Medications Generic Name Dose Route Start Last Admin Trade Name Freq PRN Reason Stop Dose Admin Albuterol/Ipratropium 3 ml 12/03/22 02:00 12/05/22 14:00 Ipratropium-Albuterol 3 Ml Neb INHALATION 3 ml Q6H.RESP TANESHA Administration Amlodipine Besylate 2.5 mg 12/03/22 09:00 12/05/22 08:37 Amlodipine 5 Mg Tablet PO 2.5 mg DAILY TANESHA Administration Benzonatate 200 mg 12/04/22 11:13 12/05/22 08:37 Benzonatate 100 Mg Capsule PO 200 mg TID PRN Administration COUGH Budesonide 0.5 mg 12/03/22 08:00 12/05/22 08:10 Budesonide 0.5 Mg/2 Ml Neb INHALATION 0.5 mg BID.RESPIRATORY TANESHA Administration Escitalopram Oxalate 20 mg 12/03/22 09:00 12/05/22 08:37 Escitalopram 10 Mg Tablet PO 20 mg DAILY TANESHA Administration Heparin Sodium (Porcine) 0 unit 12/03/22 09:05 12/04/22 15:04 Heparin 5,000 Unit/Ml Inj 1 Ml IV 1,800 unit PRN PRN Administration Heparin weight-base protocol Protocol Ceftriaxone Sodium 1,000 mg/ 50 mls @ 100 mls/hr 12/03/22 00:00 12/05/22 00:07 Sodium Chloride IV Infused Q24H TANESHA Infusion Protocol Heparin Sodium/Sodium Chloride 25,000 unit in 500 mls @ 0 mls/hr 12/03/22 09:15 12/05/22 16:30 Heparin Drip IV 12.4 unit/kg/hr .Q0M TANESHA 22 mls/hr Administration Protocol Per Protocol Azithromycin 500 mg/ Sodium 250 mls @ 250 mls/hr 12/04/22 18:00 12/04/22 19:10 Chloride IV Infused Q24H TANESHA Infusion Protocol Lanolin 1 applic 12/05/22 08:56 12/05/22 10:11 Lanolin Oint 7 Gm TOPICAL 1 applic PRN PRN Administration DRYNESS Pantoprazole Sodium 40 mg 12/03/22 09:00 12/05/22 08:[address] 40 Mg Tablet PO 40 mg DAILY TANESHA Administration PFSH Acute PFSH: Medical History Asthma HTN (hypertension) Social History Smoking and tobacco status: never smoked Alcohol intake: never Vitals/I&O/Wt Last Vital Signs Temp 98.5 F 12/05/22 16:00 Pulse 69 12/05/22 16:00 Resp 16 12/05/22 16:00 BP 140/77 12/05/22 16:00 Pulse Ox 93 12/05/22 16:00 O2 Del Method Nasal Cannula 12/05/22 16:00 O2 Flow Rate 2 12/05/22 16:00 12/05/22 12/05/22 12/05/22 06:59 14:59 22:59 Intake Total 300 / 1610 480 / 480 500 / 980 Output Total 1200 / 1200 Balance 300 / 1410 480 / 480 -700 / -220 Physical Exam Narrative: General: alert, elderly female, NAD HEENT: conj clear, EOMI, PERRL, mmm, Neck: supple, no meningismus Heme: no cervical LAP Respiratory: Inspection: No visible deformity of the chest wall Palpation: Trachea is mildly deviated to the right, bilateral symmetric expansion Percussion: Bilateral tympanic percussion note both anterior and posteriorly Auscultation: Bilateral clear to auscultation both anterior and posteriorly, no crackles wheezing or rhonchi Cardiovascular: rrr, nl s1s2, no mrg Abdomen: soft, nt, nd, no r/g, bs+ Extremities: pulses +, no edema, no c/c : no CVA tenderness Skin: intact, no rash MSK: no back or neck pain Neurologic: grossly intact Data 12/05/22 03:12 12/05/22 03:12 Other Labs: Radiology Impressions Chest CTA 12/02/22 19:54 IMPRESSION: 1. Bronchial wall thickening in all pulmonary lobes bilaterally. Mucous plugging in the right and left lower lobes. Patchy alveolar airspace disease in the right and left lower lobes and more extensive airspace disease with air bronchograms in the left upper lobe and left lingula. Findings are suspicious for bronchopneumonia. Recommend followup chest imaging to insure resolution of these findings. 2. No evidence for pulmonary embolism. 3. Trace left pleural effusion. 4. Small hiatal hernia. 5. Nonspecific mediastinal and bilateral hilar lymphadenopathy, which could be reactive in nature. Followup imaging recommended to insure stability/resolution however. 6. Incidental/nonacute findings are listed in the report. Chest X-Ray 12/05/22 06:00 Impression: No change in patchy left lower lobe opacity which may represent atelectasis and or pneumonia. Laboratory Results WBC 6.6 10^3/uL (4.0-10.0) 12/05/22 03:12 RBC 3.46 10^6/uL (4.1-5.3) L 12/05/22 03:12 Hgb 10.6 g/dL (11.5-15.3) L 12/05/22 03:12 Hct 33.4 % (37.0-47.0) L 12/05/22 03:12 MCV 96.5 fl (81-99) 12/05/22 03:12 MCH 30.6 pg (28.0-34.0) 12/05/22 03:12 MCHC 31.7 g/dL (30.0-36.0) 12/05/22 03:12 RDW 13.1 % (12.1-15.1) 12/05/22 03:12 Plt Count 191 10^3/cmm (130-400) 12/05/22 03:12 MPV 10.1 fL (7.4-10.4) 12/05/22 03:12 Neut % (Auto) 69.5 % 12/05/22 03:12 Lymph % (Auto) 18.0 % 12/05/22 03:12 [place] % (Auto) 8.5 % 12/05/22 03:12 Eos % (Auto) 3.2 % 12/05/22 03:12 Baso % (Auto) 0.3 % 12/05/22 03:12 Neut # (Auto) 4.55 10^3/uL (1.8-7.7) 12/05/22 03:12 Lymph # (Auto) 1.2 10^3/uL (0.8-4.8) 12/05/22 03:12 [place] # (Auto) 0.6 10^3/uL (0.2-0.9) 12/05/22 03:12 Eos # (Auto) 0.2 10^3/uL (0.0-0.8) 12/05/22 03:12 Baso # (Auto) 0.0 10^3/uL (0.0-0.1) 12/05/22 03:12 Nucleated RBC % (auto) 0 % 12/05/22 03:12 Nucleated RBCs # 0.0 /100WBC 12/05/22 03:12 PT 16.60 SECONDS (12.1-14.9) H 12/02/22 18:35 INR 1.30 (0.8-1.2) H 12/02/22 18:35 APTT 55.8 SECONDS (23.9-36.7) H 12/05/22 15:30 Sodium 141 mmol/L (136-145) 12/05/22 03:12 Potassium 4.1 mmol/L (3.5-5.1) 12/05/22 03:12 Chloride 106 mmol/L (98-107) 12/05/22 03:12 Carbon Dioxide 24 mmol/L (22-29) 12/05/22 03:12 Anion Gap 15.1 (5-19) 12/05/22 03:12 BUN 18 mg/dL (8-23) 12/05/22 03:12 Creatinine 1.0 mg/dL (0.5-0.9) H 12/05/22 03:12 GFR Calculation Not Reportable 12/05/22 03:12 Glucose 102 mg/dL (65-115) 12/05/22 03:12 Calculated Osmolality 294 mOsm/kg (285-295) 12/05/22 03:12 Calcium 8.5 mg/dL (8.5-10.5) 12/05/22 03:12 Magnesium 2.0 mg/dL (1.7-2.3) 12/05/22 03:12 Total Bilirubin 0.2 mg/dL (0.15-1.2) 12/05/22 03:12 AST 17 U/L (0-32) 12/05/22 03:12 ALT 12 U/L (0-33) 12/05/22 03:12 Alkaline Phosphatase 53 U/L (35-105) 12/05/22 03:12 Troponin T Baseline 15 ng/L (0-10) H 12/03/22 10:10 Troponin T 120 Minute 14.68 ng/L (0-10) H 12/03/22 12:10 Delta Troponin T -0.32 ABS# (0-10) L 12/03/22 12:10 Troponin T Hi Sens 6Hr 12.65 ng/L (0-10) H 12/03/22 16:18 Troponin T Hi Sens 6Hr Delta -2.35 ng/L (0-12) L 12/03/22 16:18 C-Reactive Protein 154.5 mg/L (0.0-4.9) H 12/05/22 03:12 NT-Pro-B Natriuret Pep 928 pg/mL (0-450) H 12/05/22 03:12 Total Protein 6.0 g/dL (6.6-8.7) L 12/05/22 03:12 Albumin 3.1 g/dL (3.5-5.2) L 12/05/22 03:12 Globulin 2.9 g/dL (1.3-4.6) 12/05/22 03:12 Procalcitonin 0.86 ng/mL (0-0.5) H 12/05/22 03:12 Coronavirus 229E (PCR) Not detected (NOT DETECT) 12/02/22 22:51 Human Metapneumovir PCR Not detected (NOT DETECT) 12/03/22 01:35 Entero/Rhino (PCR) Detected (NOT DETECT) A 12/03/22 01:35 SARS-CoV-2 (PCR) Not detected (NOT DETECT) 12/02/22 22:51 Micro: Microbiology 12/03/22 03:00 Gram Stain - Final Sputum - Expectorated Sputum Sputum Culture - Final A&P Assessment and plan (1) Hemoptysis: -Scant hemoptysis with streaks of blood in sputum-most likely from left upper lobe pneumonia -Patient had a recent history of right-sided pulmonary embolism with clot burden causing right heart strain-she was on Eliquis at home and currently switched to heparin in hospital - There is a drop in her H&H from 13.3/41to 10.6/33, component of the drop can be hemodilution due to IV fluids and antibiotics. Patient denied coughing out any preet blood. She has small flecks of blood streaks in her sputum. -Closely monitor vitals and H&H (2) History of pulmonary embolism: Currently on IV heparin Once she is stable enough to go home-we can switch to oral Eliquis (3) Community acquired pneumonia: Currently on Rocephin and azithromycin Sputum cultures and blood cultures are pending Bacterial antigens MRSA nares, Legionella antigen are negative Qualifiers: Laterality: unspecified laterality Qualified Code(s): J18.9 - Pneumonia, unspecified organism Plan Will watch over this weekend and if he continues to have hemoptysis-I will do bronchoscopic evaluation Consult Attestations Medical Necessity Statement: We will at least 24 to 8 hours hospitalization to monitor for hemoptysis Time Spent in Patient Care: Greater than 35 minutes (>than 50% of time spent in counselling and/or direct pt care on unit) . Coding Level of Care Code 43626 Diagnoses Hemoptysis R04.2 History of pulmonary embolism Z86.711 Community acquired pneumonia J18.9 Laterality: unspecified laterality Time Spent (min) 67
[2022-12-05] MEDS: azithromycin 500 MG in sodium chloride 0.9% 250 ML 250 MG IV (17:03)
[2022-12-06] VITALS (13 sets, daily range): BP systolic 118–159; BP diastolic 67–80; PULSE 59–80; RESP 14–20; TEMP 36.5–37; O2SAT 87–97
[2022-12-06] MEDS: cefTRIAXone 1,000 MG in sodium chloride 0.9% (plus) 50 ML 100 MG IV (00:57)
[2022-12-06 04:39] LABS: Basophils % 0.7 %; Eosinophils # 0.3 10^3/uL (0.0-0.8); Eosinophils % 4.7 %; Hemoglobin 10.9 g/dL (11.5-15.3); Lymphocytes # 1.5 10^3/uL (0.8-4.8); Lymphocytes % 24.4 %; Mean Corpuscular HGB Conc 31.1 g/dL (30.0-36.0); Mean Corpuscular Hemoglobin 30.2 pg (28.0-34.0); Mean Platelet Volume 9.9 fL (7.4-10.4); Monocytes # 0.5 10^3/uL (0.2-0.9); Monocytes % 8.6 %; Neutrophils # 3.74 10^3/uL (1.8-7.7); Neutrophils % 60.9 %; Nucleated Red Blood Cells % 0 %; Platelet Count 217 10^3/cmm (130-400); Red Blood Count 3.61 10^6/uL (4.1-5.3); Red Cell Distribution Width 12.9 % (12.1-15.1); White Blood Count 6.1 10^3/uL (4.0-10.0)
[2022-12-06 05:13] LABS: Alanine Aminotransferase 10 U/L (0-33); Albumin Level 3.2 g/dL (3.5-5.2); Alkaline Phosphatase 54 U/L (35-105); Aspartate Amino Transferase 15 U/L (0-32); Blood Urea Nitrogen 21 mg/dL (8-23); C Reactive Protein 103.7 mg/L (0.0-4.9); Calcium 8.9 mg/dL (8.5-10.5); Carbon Dioxide 25 mmol/L (22-29); Chloride 102 mmol/L (98-107); Glucose 88 mg/dL (65-115); Magnesium 2.1 mg/dL (1.7-2.3); Osmolality Calculated 290 mOsm/kg (285-295); Sodium 139 mmol/L (136-145); Total Bilirubin 0.2 mg/dL (0.15-1.2); Total Protein 6.2 g/dL (6.6-8.7)
[2022-12-06 05:22] LABS: NT Pro B Type Natriuretic Pept 1258 pg/mL (0-450); Procalcitonin 0.51 ng/mL (0-0.5)
--- NOTE | 2022-12-06 05:48 | PC.NURSE ---
Nurse called lab about timed PTT for 0400 still showing pending at 0545. Lab stated malfunction with equipment and would result in 15 mins.
[2022-12-06 06:04] LABS: Partial Thromboplastin Time 77.3 SECONDS (23.9-36.7)
[2022-12-06] MEDS: budesonide 0.5 mg/2 mL Neb INHALATION ×2 (08:25→19:32)
[2022-12-06] MEDS: ipratropium-albuterol 3 mL Neb INHALATION ×3 (08:25→19:32)
[2022-12-06] MEDS: escitalopram 10 mg Tablet 20 MG PO (08:45)
[2022-12-06] MEDS: pantoprazole DR 40 mg Tablet PO (08:45)
[2022-12-06] MEDS: amlodipine 5 mg Tablet 2.5 MG PO (08:46)
--- NOTE | 2022-12-06 11:16 | P.PN_ITS ---
Subjective Subjective: Patient was seen this morning, family members at bedside, she does feel a lot better, still has a cough, but no more scant hemoptysis, no fevers, no chills, Vitals/I&O/Wt Last Vital Signs Temp 98.4 F 12/06/22 07:54 Pulse 61 12/06/22 08:36 Resp 18 12/06/22 08:00 BP 138/80 12/06/22 07:54 Pulse Ox 93 12/06/22 08:00 O2 Del Method Nasal Cannula 12/06/22 08:00 O2 Flow Rate 2 12/06/22 08:00 12/05/22 12/06/22 12/06/22 22:59 06:59 14:59 Intake Total 900 / 1380 300 / 1680 480 / 480 Output Total 1500 / 1500 Balance -600 / -120 300 / 180 480 / 480 Physical Exam Const: COMMON NORMALS: no acute distress and patient oriented x3 Resp: COMMON NORMALS: normal respiratory effort, No retractions, No use of accessory muscles and clear to auscultation bilaterally AUSCULTATION: clear to auscultation bilaterally Cardio: COMMON NORMALS: regular rate, regular rhythm, S1 normal heart sound present and S2 normal heart sound present RATE: regular rate RHYTHM: regular rhythm HEART SOUNDS: S1 normal heart sound present and S2 normal heart sound present GI: COMMON NORMALS: Normal to inspection, nondistended, normoactive bowel sounds present and non-tender Extremity: COMMON NORMALS: no pedal edema Neuro: COMMON NORMALS: patient oriented x3 Psych: COMMON NORMALS: mental status grossly normal Data 12/06/22 04:30 12/06/22 04:30 Micro: Microbiology 12/03/22 03:00 Gram Stain - Final Sputum - Expectorated Sputum Sputum Culture - Final A&P Assessment and plan (1) Community acquired pneumonia: Admit to [facility] in view of community-acquired pneumonia CT of the chest shows 1. ? Bronchial wall thickening in all pulmonary lobes bilaterally. Mucous plugging in the right and left lower lobes. Patchy alveolar airspace disease in the right and left lower lobes and more extensive airspace disease with air bronchograms in the left upper lobe and left lingula. Findings are suspicious for bronchopneumonia. Recommend followup chest imaging to insure resolution of these findings. 2. ? No evidence for pulmonary embolism. 3. ? Trace left pleural effusion. 4. ? Small hiatal hernia. 5. ? Nonspecific mediastinal and bilateral hilar lymphadenopathy, which could be reactive in nature. Followup imaging recommended to insure stability/resolution however. 6. ? Incidental/nonacute findings are listed in the report. ?Additionally also with hypoxia requiring 2 L/min supplemental O2 Continue antibiotic treatment with ceftriaxone 1 g IV every 24 hours and atypical coverage with azithromycin 500 mg daily Check sputum culture and Gram stain, so far negative Check MRSA nares, COVID PCR, sputum culture, blood cultures. Scheduled nebulization with DuoNeb and budesonide Background emphysematous changes are noted, may have underlying COPD Supplemental O2 to keep saturation greater than 92% Monitor for serial improvement Qualifiers: Laterality: unspecified laterality Qualified Code(s): J18.9 - Pneumonia, unspecified organism (2) Hypoxia: (3) Hemoptysis: Hemoptysis with blood-streaked sputum likely as a result of excessive forceful coughing. Increased dose of Tessalon Perles to 200 3 times daily, add on Tylenol with c odeine Monitor for recurrent hemoptysis as patient is on heparin drip We will continue to monitor over the weekend, if by Thursday she continues to have scant hemoptysis we will proceed with bronchoscopy with consultation with pulmonary (4) History of pulmonary embolism: - History of pulmonary embolism, with significant embolic burden greatest within the right pulmonary artery, right lower lobe artery, smaller emboli in the right middle lobe, and left lower lobe, with right heart strain -Repeat CT during this hospitalization shows no recurrent evidence of pulmonary embolism, no filling defects -As she has hemoptysis we will hold off on Eliquis for now -Currently on heparin drip as she has hemoptysis monitoring -I have repeated the venous ultrasound negative for DVT, -Etiology behind pulmonary embolism is unclear (5) Rhinovirus: - Monitor (6) NSTEMI (non-ST elevated myocardial infarction): - Likely secondary to community-acquired pneumonia ?Normal left ventricular size and systolic function, EF 68 %. No ?regional wall motion abnormalities. Grade I/IV diastolic ?dysfunction (abnormal relaxation filling pattern), normal to ?mildly elevated filling pressures. ?Mild mitral annular calcification. Trace mitral valve ?regurgitation. ?[id number] tricuspid valve regurgitation .estimated ?pulmonary artery peak systolic pressure 61 mmHg. ?Aortic valve sclerosis. ?There is no pericardial effusion. ?There are no intracardiac masses. ?Compared to the study from 08/29/2022, there may not be a ?significant change (7) Hypokalemia: Resolved (8) Chronic kidney disease: Plan Plan for today continue antibiotic therapy, aggressively manage hemoptysis, up out of bed, monitor for scant hemoptysis, monitor heparin drip monitor PTT, monitor antibiotic therapy Attestations Medical Necessity Statement*: Patient requires hospitalization for pneumonia, him up doses, pulmonary embolism on heparin drip Diagnoses Community acquired pneumonia J18.9 Laterality: unspecified laterality Hypoxia R09.02 Hemoptysis R04.2 History of pulmonary embolism Z86.711 Rhinovirus B34.8 NSTEMI (non-ST elevated myocardial infarction) I21.4 Hypokalemia E87.6 Chronic kidney disease N18.9
[2022-12-06 14:28] LABS: Partial Thromboplastin Time 46.2 SECONDS (23.9-36.7)
[2022-12-06] MEDS: heparin 5,000 unit/mL INJ 1 mL IV ×2 (14:45→21:47)
[2022-12-06 21:18] LABS: Partial Thromboplastin Time 37.7 SECONDS (23.9-36.7)
[2022-12-07] VITALS (10 sets, daily range): BP systolic 115–147; BP diastolic 63–79; PULSE 56–66; RESP 16–17; TEMP 36.4–36.9; O2SAT 93–97
--- NOTE | 2022-12-07 01:26 | PC.NURSE ---
Pt has one patent IV access which is being used for a heparin gtt. Protocol states that other medications are not to be piggybacked or hung on the same line as heparin. Educated pt on this protocol and stated this nurse would have to insert a second IV line in order to give IV antibiotics. Pt refused, stating that she is a hard stick and does not want to be poked anymore. Pt also stated that dayshift nurse said they would switch IV abx to PO abx to avoid second IV line. Doctor aware of pt refusal of second line and IV abx.
[2022-12-07 04:05] LABS: Basophils % 0.3 %; Eosinophils # 0.3 10^3/uL (0.0-0.8); Eosinophils % 4.3 %; Hematocrit 34.7 % (37.0-47.0); Lymphocytes # 1.4 10^3/uL (0.8-4.8); Lymphocytes % 23.7 %; Mean Corpuscular HGB Conc 31.7 g/dL (30.0-36.0); Mean Corpuscular Hemoglobin 30.4 pg (28.0-34.0); Mean Corpuscular Volume 95.9 fl (81-99); Mean Platelet Volume 10.4 fL (7.4-10.4); Monocytes # 0.6 10^3/uL (0.2-0.9); Monocytes % 9.7 %; Nucleated Red Blood Cells % 0 %; Platelet Count 229 10^3/cmm (130-400); Red Blood Count 3.62 10^6/uL (4.1-5.3); Red Cell Distribution Width 12.8 % (12.1-15.1); White Blood Count 5.8 10^3/uL (4.0-10.0)
[2022-12-07 04:32] LABS: Partial Thromboplastin Time 126.6 SECONDS (23.9-36.7)
[2022-12-07 04:39] LABS: Anion Gap 13.2 (5-19); Blood Urea Nitrogen 19 mg/dL (8-23); C Reactive Protein 68.8 mg/L (0.0-4.9); Calcium 8.7 mg/dL (8.5-10.5); Carbon Dioxide 26 mmol/L (22-29); Chloride 106 mmol/L (98-107); Glucose 94 mg/dL (65-115); Magnesium 2.1 mg/dL (1.7-2.3); NT Pro B Type Natriuretic Pept 1181 pg/mL (0-450); Osmolality Calculated 294 mOsm/kg (285-295); Phosphorus 4.3 mg/dL (2.5-4.5); Potassium 4.2 mmol/L (3.5-5.1); Sodium 141 mmol/L (136-145)
[2022-12-07] MEDS: budesonide 0.5 mg/2 mL Neb INHALATION (07:33)
[2022-12-07] MEDS: ipratropium-albuterol 3 mL Neb INHALATION ×2 (07:33→13:11)
[2022-12-07] MEDS: escitalopram 10 mg Tablet 20 MG PO (08:34)
[2022-12-07] MEDS: amlodipine 5 mg Tablet 2.5 MG PO (08:35)
[2022-12-07] MEDS: pantoprazole DR 40 mg Tablet PO (08:35)
[2022-12-07] MEDS: FUROsemide 10 mg/mL SDV 2mL 20 MG IVP (09:55)
--- NOTE | 2022-12-07 10:56 | PC.SOCIAL ---
Imm update Imm updated with patient at bedside. Copy of page 2 provided. Patient verbalized understanding. Copy in chart initialed, dated and timed.
[2022-12-07 12:01] LABS: Partial Thromboplastin Time 63.2 SECONDS (23.9-36.7)
--- NOTE | 2022-12-07 14:26 | PM.PN ---
Subjective Subjective: Patient was seen this morning, she does admit that she had an episode of of cough this morning with scant hemoptysis Vitals/I&O/Wt Last Vital Signs Temp 97.8 F 12/07/22 12:00 Pulse 66 12/07/22 13:20 Resp 16 12/07/22 13:20 BP 122/71 12/07/22 12:00 Pulse Ox 97 12/07/22 13:20 O2 Del Method Nasal Cannula 12/07/22 13:20 O2 Flow Rate 2 12/07/22 13:20 12/06/22 12/07/22 12/07/22 22:59 06:59 14:59 Intake Total 740 / 1580 240 / 240 Balance 740 / 1580 240 / 240 Physical Exam Const: COMMON NORMALS: no acute distress and patient oriented x3 Resp: COMMON NORMALS: normal respiratory effort, No retractions, No use of accessory muscles and clear to auscultation bilaterally AUSCULTATION: clear to auscultation bilaterally Cardio: COMMON NORMALS: regular rate, regular rhythm, S1 normal heart sound present and S2 normal heart sound present RATE: regular rate RHYTHM: regular rhythm HEART SOUNDS: S1 normal heart sound present and S2 normal heart sound present GI: COMMON NORMALS: Normal to inspection, nondistended, normoactive bowel sounds present and non-tender Extremity: COMMON NORMALS: no pedal edema Neuro: COMMON NORMALS: patient oriented x3 Psych: COMMON NORMALS: mental status grossly normal Data 12/07/22 03:47 12/07/22 03:47 A&P Assessment and plan (1) Community acquired pneumonia: Admit to [facility] in view of community-acquired pneumonia CT of the chest shows 1. ? Bronchial wall thickening in all pulmonary lobes bilaterally. Mucous plugging in the right and left lower lobes. Patchy alveolar airspace disease in the right and left lower lobes and more extensive airspace disease with air bronchograms in the left upper lobe and left lingula. Findings are suspicious for bronchopneumonia. Recommend followup chest imaging to insure resolution of these findings. 2. ? No evidence for pulmonary embolism. 3. ? Trace left pleural effusion. 4. ? Small hiatal hernia. 5. ? Nonspecific mediastinal and bilateral hilar lymphadenopathy, which could be reactive in nature. Followup imaging recommended to insure stability/resolution however. 6. ? Incidental/nonacute findings are listed in the report. ?Additionally also with hypoxia requiring 2 L/min supplemental O2 Having issues with IVs So we will de-escalate antibiotic therapy to doxycycline and Augmentin Check sputum culture and Gram stain, so far negative Check MRSA nares, COVID PCR, sputum culture, blood cultures. Scheduled nebulization with DuoNeb and budesonide Background emphysematous changes are noted, may have underlying COPD Supplemental O2 to keep saturation greater than 92% Monitor for serial improvement Qualifiers: Laterality: unspecified laterality Qualified Code(s): J18.9 - Pneumonia, unspecified organism (2) Hypoxia: (3) Hemoptysis: Hemoptysis with blood-streaked sputum likely as a result of excessive forceful coughing. Increased dose of Tessalon Perles to 200 3 times daily, add on Tylenol with codeine Monitor for recurrent hemoptysis as patient is on heparin drip We will continue to monitor over the weekend, if by Thursday she continues to have scant hemoptysis we will proceed with bronchoscopy with consultation with pulmonary As she continues to have scant hemoptysis, will hold heparin drip 12 hours before procedure, roughly at 7 PM, so she can have a bronchoscopy early in the morning tomorrow, n.p.o. midnight (4) History of pulmonary embolism: - History of pulmonary embolism, with significant embolic burden greatest within the right pulmonary artery, right lower lobe artery, smaller emboli in the right middle lobe, and left lower lobe, with right heart strain -Repeat CT during this hospitalization shows no recurrent evidence of pulmonary embolism, no filling defects -As she has hemoptysis we will hold off on Eliquis for now -Currently on heparin drip as she has hemoptysis monitoring -I have repeated the venous ultrasound negative for DVT, -Etiology behind pulmonary embolism is unclear (5) Rhinovirus: - Monitor (6) NSTEMI (non-ST elevated myocardial infarction): - Likely secondary to community-acquired pneumonia ?Normal left ventricular size and systolic function, EF 68 %. No ?regional wall motion abnormalities. Grade I/IV diastolic ?dysfunction (abnormal relaxation filling pattern), normal to ?mildly elevated filling pressures. ?Mild mitral annular calcification. Trace mitral valve ?regurgitation. ?[id number] tricuspid valve regurgitation .estimated ?pulmonary artery peak systolic pressure 61 mmHg. ?Aortic valve sclerosis. ?There is no pericardial effusion. ?There are no intracardiac masses. ?Compared to the study from 08/29/2022, there may not be a ?significant change (7) Hypokalemia: Resolved (8) Chronic kidney disease: Plan Plan for today de-escalate antibiotic therapy, monitor for scant hemoptysis, 1 dose of Lasix today due to evidence of fluid overload, discussed with pulmonary given her scant hemoptysis, will proceed with bronchoscopy tomorrow morning, hold heparin drip 12 hours before procedure roughly at 7 PM, continue to monitor for scant hemoptysis, spoke to pulmonary, spoke to patient, spoke to nursing staff Attestations Medical Necessity Statement*: Patient requires hospitalization for pneumonia, now with skin hemoptysis and fluid overload requiring Lasix, proceeding with bronchoscopy tomorrow morning Diagnoses Community acquired pneumonia J18.9 Laterality: unspecified laterality Hypoxia R09.02 Hemoptysis R04.2 History of pulmonary embolism Z86.711 Rhinovirus B34.8 NSTEMI (non-ST elevated myocardial infarction) I21.4 Hypokalemia E87.6 Chronic kidney disease N18.9
[2022-12-07] MEDS: amoxicillin-clav 875-125 mg Tablet 1 TAB PO (17:08)
[2022-12-07] MEDS: doxycycline 100 mg Tablet PO (17:08)
[2022-12-07 18:44] LABS: Partial Thromboplastin Time 33.4 SECONDS (23.9-36.7)
[2022-12-07] MEDS: benzonatate 100 mg Capsule 200 MG PO ×2 (20:10)
[2022-12-08] VITALS (12 sets, daily range): BP systolic 134–154; BP diastolic 65–86; PULSE 57–71; RESP 16–18; TEMP 36.2–36.8; O2SAT 87–97
[2022-12-08] MEDS: ipratropium-albuterol 3 mL Neb INHALATION ×3 (03:14→13:46)
[2022-12-08 05:47] LABS: Basophils % 0.4 %; Eosinophils # 0.3 10^3/uL (0.0-0.8); Eosinophils % 5.5 %; Hematocrit 37.6 % (37.0-47.0); Hemoglobin 11.5 g/dL (11.5-15.3); Lymphocytes % 21.6 %; Mean Corpuscular HGB Conc 30.6 g/dL (30.0-36.0); Mean Corpuscular Hemoglobin 29.9 pg (28.0-34.0); Mean Corpuscular Volume 97.7 fl (81-99); Mean Platelet Volume 9.6 fL (7.4-10.4); Monocytes # 0.4 10^3/uL (0.2-0.9); Monocytes % 9.4 %; Neutrophils # 2.83 10^3/uL (1.8-7.7); Neutrophils % 61.8 %; Nucleated Red Blood Cells % 0 %; Platelet Count 254 10^3/cmm (130-400); Red Blood Count 3.85 10^6/uL (4.1-5.3); Red Cell Distribution Width 12.6 % (12.1-15.1); White Blood Count 4.6 10^3/uL (4.0-10.0)
[2022-12-08 06:16] LABS: Blood Urea Nitrogen 18 mg/dL (8-23); C Reactive Protein 44.4 mg/L (0.0-4.9); Calcium 9.3 mg/dL (8.5-10.5); Carbon Dioxide 25 mmol/L (22-29); Chloride 102 mmol/L (98-107); Glucose 97 mg/dL (65-115); NT Pro B Type Natriuretic Pept 645 pg/mL (0-450); Osmolality Calculated 288 mOsm/kg (285-295); Phosphorus 4.2 mg/dL (2.5-4.5); Sodium 138 mmol/L (136-145)
--- NOTE | 2022-12-08 07:09 | P.PN_ITS ---
Subjective Subjective: Patient denies any significant hemoptysis or last 48 hours. She had 1 episode of mild blood-tinged sputum yesterday I have counseled bronchoscopic evaluation She is currently receiving antibiotics for pneumonia and reports subjective improvement in her breathing Other labs and imaging reviewed Medications: Reviewed: Yes Vitals/I&O/Wt Last Vital Signs Temp 97.6 F 12/08/22 04:00 Pulse 57 L 12/08/22 06:04 Resp 17 12/08/22 04:00 BP 148/65 12/08/22 04:00 Pulse Ox 94 12/08/22 04:00 O2 Del Method Nasal Cannula 12/08/22 03:14 O2 Flow Rate 2 12/08/22 03:14 12/07/22 12/08/22 12/08/22 22:59 06:59 14:59 Intake Total 720 / 1200 Output Total 1650 / 1650 Balance 720 / 1200 -1650 / -450 Physical Exam Narrative: General: alert, elderly female, NAD HEENT: conj clear, EOMI, PERRL, mmm, Neck: supple, no meningismus Heme: no cervical LAP Respiratory: Inspection: No visible deformity of the chest wall Palpation: Trachea is mildly deviated to the right, bilateral symmetric expansion Percussion: Bilateral tympanic percussion note both anterior and posteriorly Auscultation: Bilateral clear to auscultation both anterior and posteriorly, no crackles wheezing or rhonchi Cardiovascular: rrr, nl s1s2, no mrg Abdomen: soft, nt, nd, no r/g, bs+ Extremities: pulses +, no edema, no c/c : no CVA tenderness Skin: intact, no rash MSK: no back or neck pain Neurologic: grossly intact Data 12/08/22 05:36 12/08/22 05:36 Other Labs: Radiology Impressions Chest CTA 12/02/22 19:54 IMPRESSION: 1. Bronchial wall thickening in all pulmonary lobes bilaterally. Mucous plugging in the right and left lower lobes. Patchy alveolar airspace disease in the right and left lower lobes and more extensive airspace disease with air bronchograms in the left upper lobe and left lingula. Findings are suspicious for bronchopneumonia. Recommend followup chest imaging to insure resolution of these findings. 2. No evidence for pulmonary embolism. 3. Trace left pleural effusion. 4. Small hiatal hernia. 5. Nonspecific mediastinal and bilateral hilar lymphadenopathy, which could be reactive in nature. Followup imaging recommended to insure stability/resolution however. 6. Incidental/nonacute findings are listed in the report. Chest X-Ray 12/05/22 06:00 Impression: No change in patchy left lower lobe opacity which may represent atelectasis and or pneumonia. Laboratory Results WBC 4.6 10^3/uL (4.0-10.0) 12/08/22 05:36 RBC 3.85 10^6/uL (4.1-5.3) L 12/08/22 05:36 Hgb 11.5 g/dL (11.5-15.3) 12/08/22 05:36 Hct 37.6 % (37.0-47.0) 12/08/22 05:36 MCV 97.7 fl (81-99) 12/08/22 05:36 MCH 29.9 pg (28.0-34.0) 12/08/22 05:36 MCHC 30.6 g/dL (30.0-36.0) 12/08/22 05:36 RDW 12.6 % (12.1-15.1) 12/08/22 05:36 Plt Count 254 10^3/cmm (130-400) 12/08/22 05:36 MPV 9.6 fL (7.4-10.4) 12/08/22 05:36 Neut % (Auto) 61.8 % 12/08/22 05:36 Lymph % (Auto) 21.6 % 12/08/22 05:36 Bucks % (Auto) 9.4 % 12/08/22 05:36 Eos % (Auto) 5.5 % 12/08/22 05:36 Baso % (Auto) 0.4 % 12/08/22 05:36 Neut # (Auto) 2.83 10^3/uL (1.8-7.7) 12/08/22 05:36 Lymph # (Auto) 1.0 10^3/uL (0.8-4.8) 12/08/22 05:36 Bucks # (Auto) 0.4 10^3/uL (0.2-0.9) 12/08/22 05:36 Eos # (Auto) 0.3 10^3/uL (0.0-0.8) 12/08/22 05:36 Baso # (Auto) 0.0 10^3/uL (0.0-0.1) 12/08/22 05:36 Nucleated RBC % (auto) 0 % 12/08/22 05:36 Nucleated RBCs # 0.0 /100WBC 12/08/22 05:36 PT 16.60 SECONDS (12.1-14.9) H 12/02/22 18:35 INR 1.30 (0.8-1.2) H 12/02/22 18:35 APTT 33.4 SECONDS (23.9-36.7) 12/07/22 18:17 Sodium 138 mmol/L (136-145) 12/08/22 05:36 Potassium 4.0 mmol/L (3.5-5.1) 12/08/22 05:36 Chloride 102 mmol/L (98-107) 12/08/22 05:36 Carbon Dioxide 25 mmol/L (22-29) 12/08/22 05:36 Anion Gap 15.0 (5-19) 12/08/22 05:36 BUN 18 mg/dL (8-23) 12/08/22 05:36 Creatinine 1.0 mg/dL (0.5-0.9) H 12/08/22 05:36 GFR Calculation Not Reportable 12/08/22 05:36 Glucose 97 mg/dL (65-115) 12/08/22 05:36 Calculated Osmolality 288 mOsm/kg (285-295) 12/08/22 05:36 Calcium 9.3 mg/dL (8.5-10.5) 12/08/22 05:36 Phosphorus 4.2 mg/dL (2.5-4.5) 12/08/22 05:36 Magnesium 2.0 mg/dL (1.7-2.3) 12/08/22 05:36 Total Bilirubin 0.2 mg/dL (0.15-1.2) 12/06/22 04:30 AST 15 U/L (0-32) 12/06/22 04:30 ALT 10 U/L (0-33) 12/06/22 04:30 Alkaline Phosphatase 54 U/L (35-105) 12/06/22 04:30 Troponin T Baseline 15 ng/L (0-10) H 12/03/22 10:10 Troponin T 120 Minute 14.68 ng/L (0-10) H 12/03/22 12:10 Delta Troponin T -0.32 ABS# (0-10) L 12/03/22 12:10 Troponin T Hi Sens 6Hr 12.65 ng/L (0-10) H 12/03/22 16:18 Troponin T Hi Sens 6Hr Delta -2.35 ng/L (0-12) L 12/03/22 16:18 C-Reactive Protein 44.4 mg/L (0.0-4.9) H 12/08/22 05:36 NT-Pro-B Natriuret Pep 645 pg/mL (0-450) H 12/08/22 05:36 Total Protein 6.2 g/dL (6.6-8.7) L 12/06/22 04:30 Albumin 3.2 g/dL (3.5-5.2) L 12/06/22 04:30 Globulin 3.0 g/dL (1.3-4.6) 12/06/22 04:30 Procalcitonin 0.51 ng/mL (0-0.5) H 12/06/22 04:30 Coronavirus 229E (PCR) Not detected (NOT DETECT) 12/02/22 22:51 Human Metapneumovir PCR Not detected (NOT DETECT) 12/03/22 01:35 Entero/Rhino (PCR) Detected (NOT DETECT) A 12/03/22 01:35 SARS-CoV-2 (PCR) Not detected (NOT DETECT) 12/02/22 22:51 Micro: Microbiology 12/02/22 23:11 Blood Culture - Final Blood NO GROWTH AFTER 5 DAYS 12/02/22 23:04 Blood Culture - Final Blood NO GROWTH AFTER 5 DAYS A&P Assessment and plan (1) Hemoptysis: -Scant hemoptysis with streaks of blood in sputum-most likely from left upper lobe pneumonia -Patient had a recent history of right-sided pulmonary embolism with clot burden causing right heart strain-she was on Eliquis at home and currently switched to heparin in hospital -There is no significant drop in H&H and it remained stable over the last 48 hours. Patient denied coughing out any preet blood. She has small flecks of blood streaks in her sputum. -I am canceling bronchoscopic evaluation -Recommended to continue antibiotics to treat pneumonia and will follow-up in clinic and repeat CT chest to check for resolution (2) History of pulmonary embolism: Currently on IV heparin it was held yesterday night for anticipation of bronchoscopy. I am canceling bronchoscope and switch patient to p.o. Eliquis She does not have strong precipitating factor for provoked PE-hence I will consider his unprovoked PE and will continue anticoagulation if she does not have any significant bleeding (3) Community acquired pneumonia: Currently on Rocephin and azithromycin and she reported subjective improvement Sputum cultures and blood cultures are negative so far Bacterial antigens MRSA nares, Legionella antigen are negative Qualifiers: Laterality: unspecified laterality Qualified Code(s): J18.9 - Pneumonia, unspecified organism Plan From pulmonary standpoint-patient can be discharged home and will follow-up in clinic 10 to 14 days Attestations Medical Necessity Statement*: Deferred to hospitalist Time Spent in Patient Care: Greater than 35 minutes (>than 50% of time spent in counselling and/or direct pt care on unit) . Coding Level of Care Code 36730 Diagnoses Hemoptysis R04.2 History of pulmonary embolism Z86.711 Community acquired pneumonia J18.9 Laterality: unspecified laterality Time Spent (min) 38
[2022-12-08] MEDS: budesonide 0.5 mg/2 mL Neb INHALATION (09:02)
[2022-12-08] MEDS: doxycycline 100 mg Tablet PO (09:32)
[2022-12-08] MEDS: escitalopram 10 mg Tablet 20 MG PO (09:32)
[2022-12-08] MEDS: amoxicillin-clav 875-125 mg Tablet 1 TAB PO (09:32)
[2022-12-08] MEDS: apixaban 5 mg Tablet PO (09:33)
[2022-12-08] MEDS: pantoprazole DR 40 mg Tablet PO (09:33)
[2022-12-08] MEDS: amlodipine 5 mg Tablet 2.5 MG PO (09:33)
--- NOTE | 2022-12-08 12:17 | PM.DCS ---
Discharge Providers Date of Admission: 12/02/22 23:01 Date of Discharge: December 08, 2022 Attending Provider at Admission: Jocelyn Luciano MD Attending Provider at Discharge: Adin Hatch MD Primary Care Provider: DIONTE Norton Diagnoses at Discharge Discharge Diagnosis (1) Community acquired pneumonia: Status: Acute Qualifiers: Laterality: unspecified laterality Qualified Code(s): J18.9 - Pneumonia, unspecified organism (2) Hypoxia: Status: Acute (3) Hemoptysis: Status: Acute (4) History of pulmonary embolism: Status: Acute (5) Rhinovirus: Status: Acute (6) NSTEMI (non-ST elevated myocardial infarction): Status: Acute (7) Hypokalemia: Status: Acute (8) Chronic kidney disease: Status: Acute Reason for Visit Reason for Visit: coughing up blood Hospital Course Hospital Course This is a 82-year-old female, with a recent history of pulmonary embolism, asthma, who presents [facility] due to cough, hemoptysis Patient was admitted to [facility] for community-acquired pneumonia, chest CT showing patchy alveolar airspace disease in the right and left lower lobe more extensive airspace disease with air bronchograms in the left upper lobe and left lingula concerning for bronchopneumonia, received broad-spectrum antibiotic therapy, patient was also found to have positive rhinovirus, had slow clinical progress, overall clinically improved, discharged on 8 remaining days of p.o. antibiotics, with oxygen therapy with close follow-up with pulmonary as outpatient Patient was also found to have scant hemoptysis during hospitalization, managed with cough suppressants, switch over to a heparin drip hemoglobin was monitored, pulmonary was consulted, remained stable, hemoptysis resolved. On discharge will be discharged on her home Eliquis, follow-up with primary care follow-up with pulmonary. Patient was advised if she were to have any more recurrent scant hemoptysis she will need to come back to the emergency room, and will require bronchoscopy, follow-up with pulmonary Physical Exam Const: COMMON NORMALS: no acute distress and patient oriented x3 Resp: COMMON NORMALS: normal respiratory effort, No retractions, No use of accessory muscles and clear to auscultation bilaterally AUSCULTATION: clear to auscultation bilaterally Cardio: COMMON NORMALS: regular rate, regular rhythm, S1 normal heart sound present and S2 normal heart sound present RATE: regular rate RHYTHM: regular rhythm HEART SOUNDS: S1 normal heart sound present and S2 normal heart sound present GI: COMMON NORMALS: Normal to inspection, nondistended, normoactive bowel sounds present and non-tender Extremity: COMMON NORMALS: no clubbing, cyanosis or edema and no pedal edema Neuro: COMMON NORMALS: patient oriented x3 Psych: COMMON NORMALS: mental status grossly normal Discharge Data Studies Completed and Pending Completed Studies During Hospitalization Category Date Time Status CTA chest [CT angio chest PE protcl [id number]] Stat Cat Scan 12/02/22 19:54 Completed XR chest 1V portable [id number] QAM Exams 12/05/22 06:00 Completed XR chest 1V portable [id number] Stat Exams 12/02/22 18:09 [place] [id number] Stat Ultrasound 12/03/22 09:03 Completed CV. echo complete* [id number] Routine Ultrasound 12/03/22 09:03 Completed Pending at discharge Category Date Time Status Basic Metabolic Panel AM LABS Lab 12/09/22 04:00 Ordered C Reactive Protein AM LABS Lab 12/09/22 04:00 Ordered Complete Blood Count w/Auto AM LABS Lab 12/09/22 04:00 Ordered Magnesium AM LABS Lab 12/09/22 04:00 Ordered NT Pro B Type Natriuretic Pept QAM Lab 12/09/22 06:00 Ordered Phosphorus AM LABS Lab 12/09/22 04:00 Ordered Radiology Impressions Chest CTA 12/02/22 19:54 IMPRESSION: 1. Bronchial wall thickening in all pulmonary lobes bilaterally. Mucous plugging in the right and left lower lobes. Patchy alveolar airspace disease in the right and left lower lobes and more extensive airspace disease with air bronchograms in the left upper lobe and left lingula. Findings are suspicious for bronchopneumonia. Recommend followup chest imaging to insure resolution of these findings. 2. No evidence for pulmonary embolism. 3. Trace left pleural effusion. 4. Small hiatal hernia. 5. Nonspecific mediastinal and bilateral hilar lymphadenopathy, which could be reactive in nature. Followup imaging recommended to insure stability/resolution however. 6. Incidental/nonacute findings are listed in the report. Chest X-Ray 12/05/22 06:00 Impression: No change in patchy left lower lobe opacity which may represent atelectasis and or pneumonia. Laboratory Results WBC 4.6 10^3/uL (4.0-10.0) 12/08/22 05:36 RBC 3.85 10^6/uL (4.1-5.3) L 12/08/22 05:36 Hgb 11.5 g/dL (11.5-15.3) 12/08/22 05:36 Hct 37.6 % (37.0-47.0) 12/08/22 05:36 MCV 97.7 fl (81-99) 12/08/22 05:36 MCH 29.9 pg (28.0-34.0) 12/08/22 05:36 MCHC 30.6 g/dL (30.0-36.0) 12/08/22 05:36 RDW 12.6 % (12.1-15.1) 12/08/22 05:36 Plt Count 254 10^3/cmm (130-400) 12/08/22 05:36 MPV 9.6 fL (7.4-10.4) 12/08/22 05:36 Neut % (Auto) 61.8 % 12/08/22 05:36 Lymph % (Auto) 21.6 % 12/08/22 05:36 Stevens % (Auto) 9.4 % 12/08/22 05:36 Eos % (Auto) 5.5 % 12/08/22 05:36 Baso % (Auto) 0.4 % 12/08/22 05:36 Neut # (Auto) 2.83 10^3/uL (1.8-7.7) 12/08/22 05:36 Lymph # (Auto) 1.0 10^3/uL (0.8-4.8) 12/08/22 05:36 Stevens # (Auto) 0.4 10^3/uL (0.2-0.9) 12/08/22 05:36 Eos # (Auto) 0.3 10^3/uL (0.0-0.8) 12/08/22 05:36 Baso # (Auto) 0.0 10^3/uL (0.0-0.1) 12/08/22 05:36 Nucleated RBC % (auto) 0 % 12/08/22 05:36 Nucleated RBCs # 0.0 /100WBC 12/08/22 05:36 PT 16.60 SECONDS (12.1-14.9) H 12/02/22 18:35 INR 1.30 (0.8-1.2) H 12/02/22 18:35 APTT 33.4 SECONDS (23.9-36.7) 12/07/22 18:17 Sodium 138 mmol/L (136-145) 12/08/22 05:36 Potassium 4.0 mmol/L (3.5-5.1) 12/08/22 05:36 Chloride 102 mmol/L (98-107) 12/08/22 05:36 Carbon Dioxide 25 mmol/L (22-29) 12/08/22 05:36 Anion Gap 15.0 (5-19) 12/08/22 05:36 BUN 18 mg/dL (8-23) 12/08/22 05:36 Creatinine 1.0 mg/dL (0.5-0.9) H 12/08/22 05:36 GFR Calculation Not Reportable 12/08/22 05:36 Glucose 97 mg/dL (65-115) 12/08/22 05:36 Calculated Osmolality 288 mOsm/kg (285-295) 12/08/22 05:36 Calcium 9.3 mg/dL (8.5-10.5) 12/08/22 05:36 Phosphorus 4.2 mg/dL (2.5-4.5) 12/08/22 05:36 Magnesium 2.0 mg/dL (1.7-2.3) 12/08/22 05:36 Total Bilirubin 0.2 mg/dL (0.15-1.2) 12/06/22 04:30 AST 15 U/L (0-32) 12/06/22 04:30 ALT 10 U/L (0-33) 12/06/22 04:30 Alkaline Phosphatase 54 U/L (35-105) 12/06/22 04:30 Troponin T Baseline 15 ng/L (0-10) H 12/03/22 10:10 Troponin T 120 Minute 14.68 ng/L (0-10) H 12/03/22 12:10 Delta Troponin T -0.32 ABS# (0-10) L 12/03/22 12:10 Troponin T Hi Sens 6Hr 12.65 ng/L (0-10) H 12/03/22 16:18 Troponin T Hi Sens 6Hr Delta -2.35 ng/L (0-12) L 12/03/22 16:18 C-Reactive Protein 44.4 mg/L (0.0-4.9) H 12/08/22 05:36 NT-Pro-B Natriuret Pep 645 pg/mL (0-450) H 12/08/22 05:36 Total Protein 6.2 g/dL (6.6-8.7) L 12/06/22 04:30 Albumin 3.2 g/dL (3.5-5.2) L 12/06/22 04:30 Globulin 3.0 g/dL (1.3-4.6) 12/06/22 04:30 Procalcitonin 0.51 ng/mL (0-0.5) H 12/06/22 04:30 Coronavirus 229E (PCR) Not detected (NOT DETECT) 12/02/22 22:51 Human Metapneumovir PCR Not detected (NOT DETECT) 12/03/22 01:35 Entero/Rhino (PCR) Detected (NOT DETECT) A 12/03/22 01:35 SARS-CoV-2 (PCR) Not detected (NOT DETECT) 12/02/22 22:51 Vitals Last Vital Signs Temp 98.3 F 12/08/22 12:00 Pulse 68 12/08/22 12:00 Resp 18 12/08/22 12:00 BP 134/71 12/08/22 12:00 Pulse Ox 95 12/08/22 12:00 O2 Del Method Nasal Cannula 12/08/22 09:02 O2 Flow Rate 2 12/08/22 10:33 Discharge Plan Discharge Patient Disposition: Home Condition: Stable Prescriptions: New benzonatate 100 mg Capsule 200 mg PO TID PRN (Reason: Cough) 7 Days Qty: 42 0RF amoxicillin-pot clavulanate 875-125 mg Tablet 1 tab PO BID 8 Days Qty: 16 0RF doxycycline monohydrate 100 mg Tablet 100 mg PO BID 8 Days Qty: 16 0RF albuterol sulfate 90 mcg/actuation HFA aerosol inhaler 1 inh inhalation Q6H PRN (Reason: shortness of breath or wheezing) Qty: 8.5 0RF Continued omeprazole 20 mg capsule,delayed release(DR/EC) 20 mg PO BID escitalopram oxalate 20 mg tablet 20 mg PO DAILY telmisartan [Micardis] 20 mg tablet 20 mg PO DAILY (DME) sole supports See Rx Instructions .Route .MEDSUPPLY Qty: 1 0RF Rx Instructions: As directed amlodipine 2.5 mg tablet 2.5 mg PO DAILY Eliquis 5 mg Tablet 5 mg PO BID Discharge Orders: Discharge Order (Routine); Ordered 12/08/22 Ordered By: Adin Hatch Other Ambulatory Orders: DME: Oxygen (Order) Location: None Selected Ordered By: Adin Hatch Referrals: Heidi Haile FNP [Primary Care Provider] - (clinic will call patient with appointment information.) Datar,Nate Perdomo MD [Physician] - 2 weeks Discharge Diet: Cardiac Discharge Activity: Resume usual activity Patient Instructions: Opioid Safety Activity Restrictions/Additional Instructions: - If any recurrent hemoptysis please go to the emergency room -Take antibiotics as prescribed -Take albuterol as prescribed Discharge Attestations Time Spent in Discharge Care*: greater than 30 min Quality Metrics Clinical Quality Measures [ No reported AMI, CVA or VTE this stay] Coding Level of Care Code 30713 Total time (in minutes) for Discharge: 50 Diagnoses Community acquired pneumonia J18.9 Laterality: unspecified laterality Hypoxia R09.02 Hemoptysis R04.2 History of pulmonary embolism Z86.711 Rhinovirus B34.8 NSTEMI (non-ST elevated myocardial infarction) I21.4 Hypokalemia E87.6 Chronic kidney disease N18.9
--- NOTE | 2022-12-08 15:33 | PC.NURSE ---
IV removed intact. Patient tolerated well. Discharge instructions reviewed with patent qnd at this time. Patient verbalized understanding of follow up appointments and medications that were added. Patient assisted into wheel chair and pushed to private car.
== END 2022-12-08 14:24 | disposition home or self-care (01) | DRG 193 ==
LOC: ER 22:55 → MEDSURG 23:02
PROVIDERS: Emergency Medicine; Admitting Provider Student in an Organized Health Care Education/Training Program; Emergency Provider Emergency Medicine; PCP Nurse Practitioner Family; Visit Provider Family Medicine
DX: J18.0 Bronchopneumonia, unspecified organism (principal); I21.4 Non-ST elevation (NSTEMI) myocardial infarction; R04.2 Hemoptysis; Z86.711 Personal history of pulmonary embolism; J45.909 Unspecified asthma, uncomplicated; B97.89 Other viral agents as the cause of diseases classified elsewhere; Z79.01 Long term (current) use of anticoagulants; I12.9 Hypertensive chronic kidney disease with stage 1 through stage 4 chronic kidney disease, or unspecified chronic kidney disease; N18.9 Chronic kidney disease, unspecified; I07.1 Rheumatic tricuspid insufficiency; E87.6 Hypokalemia
CPT/HCPCS: 36415; 71045; 71275; 80048; 80053; 83735; 83880; 84100; 84145; 84484; 85025; 85610; 85730; 86140; 86403; 87040; 87070; 87205; 87449; 87635; 87641; 87801; 93005; 93306; 93970; 94640; 94760; 96365; 99285; J0456; J0696; J1644; J1940; J2543; J7050; J7626; Q0144; Q3014; Q9967

== ENCOUNTER → 2023-01-09 10:17 | Outpatient (BNVA) | payer MEDICARE, OTHER, SELFPAY | PROVIDERS: PCP Nurse Practitioner Family; Visit Provider Internal Medicine Pulmonary Disease | DX: J18.9 Pneumonia, unspecified organism (principal); Z86.711 Personal history of pulmonary embolism; Z79.01 Long term (current) use of anticoagulants | CPT/HCPCS: 99204 ==

== ENCOUNTER 2023-01-29 12:55 | Outpatient (CLI) | payer MEDICARE, OTHER, SELFPAY ==
--- NOTE | 2023-01-29 13:00 | CT_ITS ---
WS: [id number] CT chest wo con [id number] REASON FOR EXAM: follow up IV CONTRAST ADMINISTERED: None. TOTAL EXAM DLP: 324.[address] scans at [facility] use at least one of these dose optimization techniques: automat ed exposure control; mA and/or kV adjustment per patient size (includes targeted exams where dose is matched to clinical indication); or iterative reconstruction. FINDINGS: Compared to the previous examination of 12/02/2022 the previously demonstrated lung opacities in both lower lungs and the right upper lung have completely resolved. There is minimal linear parenchymal sc arring in the left upper lobe and both lower lobes. Old reactive lymph nodes in the mediastinum. No change from 12/02/2022. No hilar adenopathy. Calcified granulomatous disease in both hemithoraces. No active pulmonary parenchymal or pleural disease. Moderate degenerative spondylosis in the mid and lower thoracic cervical spine. CT/CT chest wo con [id number] IMPRESSION: Resolution of previously demonstrated lung opacities as above. No active pulmonary parenchymal or pleural disease is identified.
== END 2023-01-29 12:56 | disposition home or self-care (01) ==
PROVIDERS: PCP Nurse Practitioner Family; Visit Provider Internal Medicine Pulmonary Disease
DX: Z86.711 Personal history of pulmonary embolism (principal)
CPT/HCPCS: 71250

== ENCOUNTER → 2023-02-24 13:18 | Outpatient (BNVA) | payer MEDICARE, OTHER, SELFPAY | PROVIDERS: PCP Nurse Practitioner Family; Visit Provider Internal Medicine Pulmonary Disease | DX: Z09 Encounter for follow-up examination after completed treatment for conditions other than malignant neoplasm (principal); Z86.711 Personal history of pulmonary embolism; I10 Essential (primary) hypertension; Z79.01 Long term (current) use of anticoagulants | CPT/HCPCS: 99214 ==

== ENCOUNTER → 2023-08-27 08:10 | Outpatient (BNVA) | payer MEDICARE, OTHER, SELFPAY | PROVIDERS: PCP Nurse Practitioner Family; Visit Provider Internal Medicine Pulmonary Disease | DX: J45.30 Mild persistent asthma, uncomplicated (principal); Z86.711 Personal history of pulmonary embolism; Z79.01 Long term (current) use of anticoagulants | CPT/HCPCS: 36415; 82785; 85025; 86003; 99214 ==

== ENCOUNTER 2023-09-17 07:59 | Outpatient (CLI) | payer MEDICARE, OTHER, SELFPAY ==
[2023-09-17 08:21] VITALS: PULSE 69; RESP 18; O2SAT 97
[2023-09-17] MEDS: albuterol 2.5 mg/3 mL Neb INHALATION (08:21)
[2023-09-17 08:25] VITALS: PULSE 70
== END 2023-09-17 08:00 | disposition home or self-care (01) ==
LOC: RT 08:00
PROVIDERS: PCP Nurse Practitioner Family; Visit Provider Internal Medicine Pulmonary Disease
DX: R06.02 Shortness of breath (principal)
CPT/HCPCS: 94060; 94618; 94726; 94729; J7613

== ENCOUNTER → 2023-11-25 08:40 | Outpatient (BNVA) | payer MEDICARE, OTHER, SELFPAY | PROVIDERS: PCP Nurse Practitioner Family; Visit Provider Internal Medicine Pulmonary Disease | DX: R06.09 Other forms of dyspnea (principal); J45.30 Mild persistent asthma, uncomplicated; Z86.711 Personal history of pulmonary embolism | CPT/HCPCS: 99214 ==

== ENCOUNTER 2024-02-25 07:24 | Outpatient (CLI) | payer MEDICARE, OTHER, SELFPAY ==
[2024-02-25 07:50] VITALS: BMI 38.0
--- NOTE | 2024-02-25 08:05 | NMCV_ITS ---
NM thomas perf SPECT r/s* [id number] Quin Stover Age: 84 Gender: F : 1940 Exam Date: 02/25/2024 08:20 Ordering Phys: Nate Bueno MD Technologist: NYASIA Mendiola Exam Location: [facility] Indications: SOB STRESS TEST [facility] IMAGE PROTOCOL Rest/Stress 1 Lexiscan Day Radiopharmaceutical Dose (mCi) Administration Site Administered by Rest: Tc-99m 10.6 IV NYASIA Mendiola Sestamibi Stress:Tc-99m 32.7 IV NYASIA Mendiola Sestamibi Rest: 25-Feb-2024 60 Discovery 630 Stress: 25-Feb-2024 30 Discovery 630 0.4mg Lexiscan. Images obtained in supine and prone position. SPECT RESULTS Technical Quality: Good Raw Data Analysis: Normal Image Corrections: No attenuation or motion correction applied Summed Stress Score: 0 Summed Rest Score: 0 Summed Difference Score: 0 PERFUSION FINDINGS SPECT images demonstrate homogeneous tracer distribution throughout the myocardium. FUNCTIONAL RESULTS (calculated via Gated SPECT) Stress Image LV EF (%): 90 Stress EDV (mL):48 TID: 1.21 Stress ESV (mL):5 FUNCTIONAL FINDINGS: There is normal left ventricular systolic function. IMPRESSIONS 1. Normal myocardial perfusion imaging with no evidence of ischemia 2. LV systolic fucntion is normal Frantz Lilly MD (Electronically Signed) Final Date: 25 February 2024 10:37 S
--- NOTE | 2024-02-25 08:05 | ECG_ITS ---
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 Interpretive Statements NAME OF STUDY: LEXISCAN SESTAMIBI STRESS TEST INDICATION: [Increased Exertional Shortness of Breath] Procedure: At the baseline, the blood pressure was 179/78 mmHg with a heart rate of 67 bpm. The electrocardiogram showed normal sinus rhythm, normal axis with normal ST and T's. The Lexiscan was infused over a period of 20 seconds. A total of 0.4 mg of Lexiscan was infused. The stress phase was continued for a total of 5 minutes. Heart rate was at the end of stress phase was 71 bpm and a blood pressure of 172/86 mmHg. The EKG at the peak infusion revealed normal sinus rhythm with no significant ST-T wave changes. Sestamibi was injected 20 seconds after the Lexiscan infusion. Blood pressure at the end of recovery phase was 162/79 mmHg with a heart rate of 74 bpm. Conclusion: 1. Normal EKG response to Lexiscan infusion 2. No Lexiscan induced chest pain or cardiac arrhythmia. 3. Normal blood pressure and heart rate response. 4. Sestamibi/sestamibi perfusion scan pending; see separate report. Electronically Signed On 02-28-2024 21:22:59 CDT by Frantz Lilly M.D. [email or web address]
[2024-02-25] MEDS: regadenoson 0.4 Mg/5 ml Syringe IVP (09:07)
[2024-02-25 09:23] VITALS: BP 145/64; PULSE 74
== END 2024-02-25 07:25 | disposition home or self-care (01) ==
LOC: CDL 07:25
PROVIDERS: PCP Nurse Practitioner Family; Visit Provider Internal Medicine Pulmonary Disease
DX: R06.02 Shortness of breath (principal)
CPT/HCPCS: 36415; 78452; 93017; 96374; A9500; J2785

== ENCOUNTER → 2024-03-15 13:24 | Outpatient (BNVA) | payer MEDICARE, OTHER, SELFPAY | PROVIDERS: PCP Nurse Practitioner Family; Visit Provider Internal Medicine | DX: R07.9 Chest pain, unspecified (principal); R06.09 Other forms of dyspnea; Z86.73 Personal history of transient ischemic attack (TIA), and cerebral infarction without residual deficits; I10 Essential (primary) hypertension; R94.31 Abnormal electrocardiogram [ECG] [EKG] | CPT/HCPCS: 93005; 99204 ==

== ENCOUNTER 2024-04-15 09:59 | Outpatient (CLI) | payer MEDICARE, OTHER, SELFPAY ==
--- NOTE | 2024-04-15 10:00 | USCV_ITS ---
Quin Stover Age: 84 Gender: F : 1940 Exam Date: 04/15/2024 10:24 Ordering Phys: Frantz Lilly M.D ([email or web address]) Technologist: CHAZ Exam Location: [facility] Indication: SHORTNESS OF BREATH BP: 132 / 72 HR: 63 Rhythm: Sinus Technical Quality: Adequate MEASUREMENTS (Male / Female) Normal Values 2D ECHO LV Diastolic Diameter PLAX 4.1 cm 4.2 - 5.9 / 3.9 - 5.3 cm IVS Diastolic Thickness 1.2 cm 0.6 - 1.0 / 0.6 - 0.9 cm IVS Systolic Thickness 2.2 cm LVPW Diastolic Thickness 2.0 cm 0.6 - 1.0 / 0.6 - 0.9 cm LVPW Systolic Thickness 2.1 cm LVOT Diameter 2.0 cm LV Ejection Fraction 2D Teich 63.8 % LV Ejection Fraction MOD 4C 69.4 % LV Ejection Fraction MOD 2C 61.6 % LV Ejection Fraction 2C AL 62.4 % LA Diameter 2.9 cm RA Systolic Volume 4C AL 13.1 ml RA Systolic Volume 4C MOD 12.7 ml LA Sys Volume AL 35.8 cm cubed LA Sys Volume Index AL 17.0 cm cubed/m squared Aorta at Sinotubular Diameter 1.8 cm M-MODE LA Ao Ratio MM 1.3 AV Cusp Separation MM 1.3 cm DOPPLER AV Peak Velocity 130.0 cm/s LVOT Peak Velocity 123.0 cm/s AV Area Cont Eq vti 2.6 cm squared AV Area Cont Eq pk 2.9 cm squared MV Peak Velocity 121.0 cm/s MV Area PHT 2.1 cm squared Mitral E to A Ratio 0.9 TV Peak Velocity 268.0 cm/s TR Peak Velocity 269.5 cm/s TR Peak Gradient 29.1 mmHg TR Mean Velocity 204.0 cm/s TR Mean Gradient 18.9 mmHg TR Velocity Time Integral 90.6 cm TV Peak E Velocity 59.0 cm/s Right Atrial Pressure 3.0 mmHg Pulmonary Artery Systolic Pressu 32.1 mmHg PV Peak Velocity 109.0 cm/s RV Ejection Time 0.3 s FINDINGS Left Ventricle Normal left ventricular cavity size. Normal left ventricular systolic function. Left ventricular ejection fraction is estimated at 60 %. Grade II/IV diastolic dysfunction, moderately elevated filling pressures. Right Ventricle The right ventricle is normal in size and function. Right Atrium The right atrium is normal in size. Left Atrium The left atrium is normal in size. Mitral Valve Mildly thickened mitral valve. No mitral valve stenosis. Moderate mitral valve regurgitation. Aortic Valve Moderate aortic valve calcification. No aortic valve stenosis. Trace aortic valve regurgitation. Tricuspid Valve Moderate tricuspid valve regurgitation. Pulmonic Valve Structurally normal pulmonic valve without significant stenosis. There is no pulmonic regurgitation. Pericardium Normal pericardium without effusion. Aorta Normal ascending aorta dimension. IVC The inferior vena cava appears normal. CONCLUSIONS Normal left ventricular cavity size. Normal left ventricular systolic function. Left ventricular ejection fraction is estimated at 60 %. Grade II/IV diastolic dysfunction, moderately elevated filling pressures. Moderate aortic valve calcification. No aortic valve stenosis. Trace aortic valve regurgitation. Mildly thickened mitral valve. No mitral valve stenosis. Moderate mitral valve regurgitation. Moderate tricuspid valve regurgitation. Pulmonary artery systolic pressure is within normal limits. Right atrial pressure is around 5 mm of mercury. Manny Moreno MD (Electronically Signed) Final Date: 23 April 2024 12:32 S
== END 2024-04-15 10:00 | disposition home or self-care (01) ==
LOC: RAD 10:02
PROVIDERS: PCP Nurse Practitioner Family; Visit Provider Internal Medicine
DX: I50.30 Unspecified diastolic (congestive) heart failure (principal); I34.0 Nonrheumatic mitral (valve) insufficiency; I35.2 Nonrheumatic aortic (valve) stenosis with insufficiency
CPT/HCPCS: 93306

== ENCOUNTER 2024-06-21 12:34 | Inpatient (IN) | payer MEDICARE, OTHER, SELFPAY ==
[2024-06-21] VITALS (16 sets, daily range): BP systolic 152–251; BP diastolic 59–135; PULSE 66–82; RESP 16–22; TEMP 37–37.4; O2SAT 92–98; BMI 37.5
--- NOTE | 2024-06-21 12:57 | XR_ITS ---
WS: [id number] XR chest 1V portable [id number] REASON FOR EXAM: Accelerated hypertension FINDINGS: The chest is unchanged compared to 03/17/2023. Moderate tortuosity of the thoracic aorta. The heart is mildly enlarged. Calcified granulomatous disease in both hemithoraces. Eventrations of the right hemidiaphragm. Old healed right clavicle fracture. Mild degenerative spondylosis in the mid and lower thoracic spine . XR/XR chest 1V portable [id number] IMPRESSION: Mild cardiomegaly. Stable chest without acute abnormality.
--- NOTE | 2024-06-21 12:58 | ED_ITS ---
HPI - General Adult 2 General: Chief complaint: Recheck/Abnormal Lab/Rx Stated complaint: hypertensive bp in 200 range Time Seen by Provider: 06/21/24 12:57 History of Present Illness: 84-year-old female presents emergency ro om with elevated blood pressure and a headache. She is on blood pressure medications in addition she is on apixaban because of a previous history of pulmonary embolism. Patient complaining of a occipital like headache. 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 She has not taken her blood pressure medications last couple of days. Associated symptoms: Deny chest pain, dyspnea or rash Related Data Home Medications Medication Instructions Recorded Confirmed escitalopram oxalate 20 mg tablet 20 mg PO DAILY 09/09/21 06/21/24 omeprazole 20 mg capsule,delayed 20 mg PO DAILY 06/21/24 06/21/24 release telmisartan 80 1 tab PO DAILY 06/21/24 06/21/24 mg-hydrochlorothiazide 25 mg tablet Previous Rx's Medication Instructions Recorded sole supports #1 ea 09/09/21 apixaban 5 mg tablet (Eliquis) 2.5 mg (1/2 x 5 mg) PO BID #90 tabs 06/12/23 budesonide 160 mcg-glycopyr 9 2 inh inhalation BID #10.7 grams 11/25/23 mcg-formot 4.8 mcg/actuation HFA inhaler (Breztri Aerosphere) Allergies Allergy/AdvReac Type Severity Reaction Status Date / Time hydroxyzine [From Atarax] Allergy Unknown Verified 03/15/24 13:43 Sulfa (Sulfonamide Allergy ALGY-Rash Verified 03/15/24 13:43 Antibiotics) Review of Systems 2 Const: Denies: fever(s) or chills Card: Denies: chest pain Resp: Denies: dyspnea GI: Denies: abdominal pain : Denies: dysuria, urinary frequency or urinary urgency Musc: Denies: neck pain or back pain Skin/Breast: Denies: rash PFSH ED 2 PFSH: Medical History (Updated 06/21/24 @ 16:54 by Jose Ramon Watkins DO) Coronary artery disease Pulmonary embolism Asthma HTN (hypertension) Surgical History (Updated 06/21/24 @ 13:00 by Jose Ramon Watkins DO) Total knee replacement status Social History Smoking and tobacco/nicotine status: never used tobacco/nicotine Alcohol intake: never Physical Exam 2 Const: ORIENTATION/CONSCIOUSNESS: Yes awake, Yes oriented to person, Yes oriented to place and Yes oriented to time HENMT: COMMON NORMALS: normocephalic, atraumatic and hearing grossly normal bilaterally HEAD & SCALP: normocephalic and atraumatic Resp: COMMON NORMALS: normal respiratory effort, No retractions, No use of accessory muscles and clear to auscultation bilaterally AUSCULTATION: clear to auscultation bilaterally Cardio: COMMON NORMALS: regular rate, regular rhythm and No murmurs present (Cardio) RATE: regular rate RHYTHM: regular rhythm GI: COMMON NORMALS: Soft to palpation and No hepatosplenomegaly present A USCULTATION: Yes normoactive bowel sounds PALPATION: Yes Soft to palpation, No Tenderness to palpation present (GI), No Guarding due to palpation present (GI) and Yes No hepatosplenomegaly present Extremity: COMMON NORMALS: normal to inspection, capillary refill normal, no clubbing, cyanosis or edema, no calf tenderness and no pedal edema Neuro: SENSORIUM/ORIENTATION: Yes oriented to person, Yes oriented to place and Yes oriented to time Skin: COMMON NORMALS: no rashes or lesions noted GENERAL SKIN EXAM: no rashes or lesions noted Course 2 Vital Signs: Vital signs: Vital Signs Temperature 98.6 F 06/21/24 12:56 Pulse Rate 74 06/21/24 16:41 Respiratory Rate 16 06/21/24 12:56 Blood Pressure 193/71 06/21/24 16:41 Pulse Oximetry 94 06/21/24 16:41 Oxygen Delivery Me thod Room Air 06/21/24 16:41 MDM - General Adult Medical Decision Making Accelerated hypertension did not respond well to medications given. 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 This been a longstanding thing is not new her family concurs that she has no other focal deficits. Head CT unremarkable. Medical Records I reviewed the patient's medical records. Lab Data I reviewed the patient's lab results. 06/21/24 13:15 06/21/24 13:15 Radiology Impressions Chest X-Ray 06/21/24 12:57 IMPRESSION: Mild cardiomegaly. Stable chest without acute abnormality. Head CT 06/21/24 15:27 IMPRESSION: No acute intracranial findings. Chronic/age-related changes as above. Laboratory Results WBC 5.39 10^3/uL (3.29-11.43) 06/21/24 13:15 RBC 4.36 10^6/uL (3.85-5.65) 06/21/24 13:15 Hgb 13.40 g/dL (11.27-16.99) 06/21/24 13:15 Hct 41.0 % (36-47) 06/21/24 13:15 MCV 94.0 fl (85-98) 06/21/24 13:15 MCH 30.7 pg (27-33) 06/21/24 13:15 MCHC 32.7 g/dL (30-55) 06/21/24 13:15 RDW 12.3 % (12.1-15.1) 06/21/24 13:15 Plt Count 246 10^3/cmm (157-399) 06/21/24 13:15 MPV 10.1 fL (7.4-10.4) 06/21/24 13:15 Neut % (Auto) 68.4 % 06/21/24 13:15 Lymph % (Auto) 19.1 % 06/21/24 13:15 [place] % (Auto) 9.5 % 06/21/24 13:15 Eos % (Auto) 2.2 % 06/21/24 13:15 Baso % (Auto) 0.6 % 06/21/24 13:15 Neut # (Auto) 3.69 10^3/uL (1.8-7.7) 06/21/24 13:15 Lymph # (Auto) 1.0 10^3/uL (0.8-4.8) 06/21/24 13:15 [place] # (Auto) 0.5 10^3/uL (0.2-0.9) 06/21/24 13:15 Eos # (Auto) 0.1 10^3/uL (0.0-0.8) 06/21/24 13:15 Baso # (Auto) 0.0 10^3/uL (0.0-0.1) 06/21/24 13:15 Nucleated RBC % (auto) 0 % 06/21/24 13:15 Nucleated RBCs # 0.0 /100WBC 06/21/24 13:15 Sodium 142 mmol/L (136-145) 06/21/24 13:15 Potassium 3.6 mmol/L (3.5-5.1) 06/21/24 13:15 Chloride 102 mmol/L (98-107) 06/21/24 13:15 Carbon Dioxide 28 mmol/L (22-29) 06/21/24 13:15 Anion Gap 15.6 (5-19) 06/21/24 13:15 BUN 19 mg/dL (8-23) 06/21/24 13:15 Creatinine 1.5 mg/dL (0.5-0.9) H 06/21/24 13:15 GFR Calculation Not Reportable 06/21/24 13:15 Glucose 106 mg/dL (65-115) 06/21/24 13:15 Calculated Osmolality 297 mOsm/kg (285-295) H 06/21/24 13:15 Calcium 9.1 mg/dL (8.5-10.5) 06/21/24 13:15 Total Bilirubin 0.5 mg/dL (0.15-1.2) 06/21/24 13:15 AST 14 U/L (0-32) 06/21/24 13:15 ALT 9 U/L (0-33) 06/21/24 13:15 Alkaline Phosphatase 63 U/L (35-105) 06/21/24 13:15 Total Protein 6.5 g/dL (6.6-8.7) L 06/21/24 13:15 Albumin 4.0 g/dL (3.5-5.2) 06/21/24 13:15 Globulin 2.5 g/dL (1.3-4.6) 06/21/24 13:15 All radiology interpretation(s) finalized by discharge Discharge Plan Discharge Patient Disposition: Admitted As Inpatient Clinical Impression: Accelerated hypertension, History of pulmonary embolism Condition: Stable Prescriptions: No Action escitalopram oxalate 20 mg tablet 20 mg PO DAILY (DME) sole supports See Rx Instructions .Route .MEDSUPPLY Qty: 1 0RF Rx Instructions: As directed Flori Aerosphere 160-9-4.8 mcg/actuation HFA aerosol inhaler 2 inh inhalation BID Qty: 10.7 3RF Eliquis 5 mg tablet 2.5 mg PO BID Qty: 90 3RF telmisartan-hydrochlorothiazid 80-25 mg Tablet 1 tab PO DAILY omeprazole 20 mg capsule,delayed release(DR/EC) 20 mg PO DAILY Referrals: Heidi Haile FNP [Primary Care Provider] - Coding Level of Care Code 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
--- NOTE | 2024-06-21 13:16 | ECG_ITS ---
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 Measurements Intervals [place] Rate: 58 P: 56 NV: 198 QRS: 5 QRSD: 76 T: 39 QT: 417 QTc: 413 Interpretive Statements SINUS BRADYCARDIA Compared to ECG 03/15/2024 13:33:11 Sinus rhythm no longer present ST (T wave) deviation no longer present Electronically Signed On 06-21-2024 21:26:58 TELECOM ANALYST by Frantz Lilly M.D. [email or web address]
[2024-06-21 13:35] LABS: Basophils % 0.6 %; Eosinophils # 0.1 10^3/uL (0.0-0.8); Eosinophils % 2.2 %; Lymphocytes % 19.1 %; Mean Corpuscular HGB Conc 32.7 g/dL (30-55); Mean Corpuscular Hemoglobin 30.7 pg (27-33); Mean Platelet Volume 10.1 fL (7.4-10.4); Monocytes # 0.5 10^3/uL (0.2-0.9); Monocytes % 9.5 %; Neutrophils # 3.69 10^3/uL (1.8-7.7); Neutrophils % 68.4 %; Nucleated Red Blood Cells % 0 %; Platelet Count 246 10^3/cmm (157-399); Red Blood Count 4.36 10^6/uL (3.85-5.65); Red Cell Distribution Width 12.3 % (12.1-15.1); White Blood Count 5.39 10^3/uL (3.29-11.43)
[2024-06-21 13:45] LABS: Alanine Aminotransferase 9 U/L (0-33); Alkaline Phosphatase 63 U/L (35-105); Anion Gap 15.6 (5-19); Aspartate Amino Transferase 14 U/L (0-32); Blood Urea Nitrogen 19 mg/dL (8-23); Calcium 9.1 mg/dL (8.5-10.5); Carbon Dioxide 28 mmol/L (22-29); Chloride 102 mmol/L (98-107); Creatinine Clr Calc Pharmacy 30.8099; Globulin 2.5 g/dL (1.3-4.6); Glucose 106 mg/dL (65-115); Osmolality Calculated 297 mOsm/kg (285-295); Potassium 3.6 mmol/L (3.5-5.1); Sodium 142 mmol/L (136-145); Total Bilirubin 0.5 mg/dL (0.15-1.2); Total Protein 6.5 g/dL (6.6-8.7)
[2024-06-21] MEDS: hydroCHLOROthiazide 25 mg Tablet 50 MG PO (13:45)
[2024-06-21] MEDS: hyDRALAzine 20 mg/mL INJ 1 mL IVP (13:45)
[2024-06-21] MEDS: amlodipine 5 mg Tablet PO (13:45)
--- NOTE | 2024-06-21 15:27 | CTR_ITS ---
PROCEDURE INFORMATION: Exam: CT Head Without Contrast Exam date and time: 06/21/2024 3:41 PM Age: 84 years old Clinical indication: Other: HTN; Additional info: Accelerated hypertension TECHNIQUE: Imaging protocol: Computed tomography of the head without contrast. Radiation optimization: All CT scans at this facility use at least one of these dose optimization techniques: automated exposure control; mA and/or kV adjustment per patient size (includes targeted exams where dose is matched to clinical indication); or iterative reconstruction. COMPARISON: CT head wo con* [id number] 07/05/2020 1:27 AM RADIATION DOSE METRICS: Total DLP (mGy-cm): 1028.58 FINDINGS: Brain: Stable changes from prior posterior fossa craniectomy and placement of mesh. The calvarium otherwise appears intact. Similar mild generalized cortical volume loss. Periventricular and subcortical white matter hypodensities likely represent chronic small vessel ischemic changes. Similar-appearing ill-defined area of hypoattenuation along the left cerebellar hemisphere, likely from prior surgical intervention. No intracranial hemorrhage or discrete extra-axial fluid collection. No mass effect or midline shift. Intracranial vascular calcifications again seen. Cerebral ventricles: No ventriculomegaly. Paranasal sinuses: Visualized sinuses are unremarkable. No fluid levels. Mastoid air cells: Visualized mastoid air cells are well aerated. Orbital cavities: Bilateral lens replacements. Bones: No acute osseous findings. Soft tissues: Unremarkable. CT/CT head wo con* [id number] IMPRESSION: No acute intracranial findings. Chronic/age-related changes as above.
[2024-06-21] MEDS: nicardipine 20 MG/200 ML PREMIX 50 MG IV (16:11)
[2024-06-21 17:13] LABS: Thyroid Stimulating Hormone 2.96 uIU/mL (0.27-4.20)
--- NOTE | 2024-06-21 19:05 | P.HP_ITS ---
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 Patient is stating that she was not experiencing any symptoms at all today she checked her blood pressure after quite some time, it was greater than 200/100 mmHg, to call Dr. Lilly recommended ER visit. Patient did not experience any vision change, chest pain, out of ordinary unusual symptoms, she has chronic shortness of breath, does not use oxygen, states compliant with her medications. Take Lasix on as-needed basis. Does not smoke, drinks occasionally. She was put on Cardene drip when she did not respond to hydralazine involving the losartan doses, EKG showing LVH tall R waves, patient is asymptomatic, at the time of my evaluation blood pressure is fluctuating between 152-166/50 to 66 mmHg I have turned off Cardene drip we will give her hydralazine, start p.o. regimen of antihypertensive regimen admit to MedSur TSH normal Patient is denying previous history of stroke, coronary artery disease, carotid disease, endorsing vision changes which she was attributing to inhaler, I have requested her to follow-up with ophthalmology for retinal exam Review of Systems 2 Eyes: Denies: change in vision ENMT: Denies: throat pain Card: Denies: chest pain Resp: Reports: dyspnea GI: Denies: abdominal pain Medications/Allergies Home Medications Medication Instructions Recorded Confirmed Last Taken Type escitalopram oxalate 20 mg tablet 20 mg PO DAILY 09/09/21 06/21/24 3 Days Ago History ~11/30/22 sole supports #1 ea 09/09/21 06/21/24 Unknown Rx apixaban 5 mg tablet (Eliquis) 2.5 mg (1/2 x 5 mg) PO BID #90 tabs 06/12/23 06/21/24 Unknown Rx budesonide 160 mcg-glycopyr 9 2 inh inhalation BID #10.7 grams 11/25/23 06/21/24 Unknown Rx mcg-formot 4.8 mcg/actuation HFA inhaler (Breztri Aerosphere) omeprazole 20 mg capsule,delayed 20 mg PO DAILY 06/21/24 06/21/24 Unknown History release telmisartan 80 1 tab PO DAILY 06/21/24 06/21/24 Unknown History mg-hydrochlorothiazide 25 mg tablet Allergies Allergy/AdvReac Type Severity Reaction Status Date / Time hydroxyzine [From Atarax] Allergy Unknown Verified 03/15/24 13:43 Sulfa (Sulfonamide Allergy ALGY-Rash Verified 03/15/24 13:43 Antibiotics) PFSH Acute 2 PFSH: Medical History Coronary artery disease Pulmonary embolism Asthma HTN (hypertension) Surgical History Total knee replacement status Social History Smoking and tobacco/nicotine status: never used tobacco/nicotine Alcohol intake: never Vitals/I&O/Wt Last Vital Signs Temp 98.6 F 06/21/24 12:56 Pulse 74 06/21/24 16:41 Resp 16 06/21/24 12:56 BP 166/66 06/21/24 18:54 Pulse Ox 98 06/21/24 18:15 O2 Del Method Room Air 06/21/24 18:15 06/21/24 06/21/24 06/21/24 06:59 14:59 22:59 Intake Total 115.833 / 115.833 Balance 115.833 / 115.833 Weight last 48 hrs Weight 96.162 kg Physical Exam 2 Narrative: Pleasant and cooperative This is a 50 Nonfocal neuroexam S1, S2 Currently on room air Blood pressure 166/66-minute, peak Repeat blood pressure 155/60-minute mercury, patient is not different any symptoms Euvolemic Morbidly obese abdomen bloated nontender Pleasant and cooperative Nonfocal neuroexam No acute discomfort on room air alert Data 06/21/24 13:15 06/21/24 13:15 A&P Assessment and plan (1) HTN (hypertension): (2) Accelerated hypertension: (3) Acute kidney injury superimposed on chronic kidney disease: (4) Exertional dyspnea: Plan Hypertensive emergency Hypokalemia 3.6 Endorgan damage creatinine 1.5, acute on chronic kidney disease Patient is stating that she has not taken Lasix in a while Patient was put on Cardene drip Patient recently had cardiac stress test which was unremarkable Echo showed preserved ejection fraction with grade 2 diastolic function Patient does not look fluid overloaded she is not in decompensated heart failure Awake and alert without any symptoms for high blood pressure MAP reduction 25% in 6 to 8 hours I have turned off her Cardene drip, added hydralazine along losartan, hydrochlorothiazide, amlodipine, metoprolol Will give first dose of hydralazine in the evening, She has normal TSH, does not smoke, drinks occasionally Endorsing to social stressors, 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
[2024-06-21] MEDS: hyDRALAzine 25 mg Tablet PO ×2 (19:37→20:57)
--- NOTE | 2024-06-21 23:13 | PC.NURSE ---
Patient has left sided facial droop. Patient states that it is due to acoustical neuroma and a neurosurgeon/ENT removed the tumor. 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 Patient states she currently has some spots of skin cancer on her scalp that she is having treated.
[2024-06-21] MEDS: acetaminophen 325 mg Tablet 650 MG PO (23:57)
[2024-06-22] VITALS (8 sets, daily range): BP systolic 113–192; BP diastolic 43–77; PULSE 68–77; RESP 16–18; TEMP 36.6–37.3; O2SAT 90–92
[2024-06-22 06:24] LABS: Basophils % 0.5 %; Eosinophils # 0.1 10^3/uL (0.0-0.8); Eosinophils % 1.8 %; Lymphocytes # 1.3 10^3/uL (0.8-4.8); Lymphocytes % 23.4 %; Mean Corpuscular HGB Conc 30.7 g/dL (30-55); Mean Corpuscular Hemoglobin 30.6 pg (27-33); Mean Corpuscular Volume 99.5 fl (85-98); Mean Platelet Volume 9.9 fL (7.4-10.4); Monocytes # 0.5 10^3/uL (0.2-0.9); Monocytes % 9.6 %; Neutrophils # 3.56 10^3/uL (1.8-7.7); Neutrophils % 64.5 %; Nucleated Red Blood Cells % 0 %; Platelet Count 248 10^3/cmm (157-399); Red Blood Count 4.22 10^6/uL (3.85-5.65); Red Cell Distribution Width 12.5 % (12.1-15.1); White Blood Count 5.52 10^3/uL (3.29-11.43)
[2024-06-22 07:20] LABS: Blood Urea Nitrogen 20 mg/dL (8-23); Calcium 9.2 mg/dL (8.5-10.5); Carbon Dioxide 26 mmol/L (22-29); Chloride 100 mmol/L (98-107); Creatinine Clr Calc Pharmacy 35.2637; Glucose 128 mg/dL (65-115); Osmolality Calculated 292 mOsm/kg (285-295); Sodium 139 mmol/L (136-145)
--- NOTE | 2024-06-22 09:12 | PC.CHAP ---
Pastoral Care Encounter/Spiritual Assessment Type of Contact [] Declined multiple coil winder visit [] Patient/Family/Request visit [] Outpatient visit [] Follow-up visit [] Physician referral [] Code/Alert [x] Routine visit [] Staff referral [] Actively dying [] Patient sleeping [] Family support [] [] Out of room [] Palliative care [] [] Receiving care in room [] Pre-surgical visit [] Trauma [] Long length of stay [] ICU visit [] Other: Relational/Emotional Strength [x] Patient feels connected with others/family/visitors/staff [] Distress [] Loneliness/isolation [] Abandonment Spirituality of Patient [x] Person of Nora [x] Attends Yazidism of their [place] [x] Believes in Prayer [x] Reads Bible or Hoahaoism materials [] There are Spiritual issues to be addressed Industrial Relations Counselor Interventions [x] Prayer [x] Active listening [x] Non-anxious presence [x] Spiritual/emotional support [] Crisis/trauma care [] Spiritual counseling [] Bereavement support [] Provided bereavement packet [] Provided Bible/devotional materials [] Provided toy/stuffed animal, coloring book to patient or family member [] Provided Communion [] Anointing/[place] [] Salvation [x] Completed spiritual assessment [] Other: Impact on Illness or Injury [] Angry [] Fearful [] Anxious [] Often cries [] Exhaustion [] Unable to work [] Unable to attend protestant [] Unable to walk/stand [] Unable to read [] Unable to drive [] Unable to eat/drink [] Unable to sleep [] Unable to be with family [] Patient intubated [] Other: Summary Time spent with patient 10 min
[2024-06-22] MEDS: pantoprazole DR 40 mg Tablet PO (10:33)
[2024-06-22] MEDS: apixaban 5 mg Tablet 2.5 MG PO ×2 (10:33→18:38)
[2024-06-22] MEDS: hydroCHLOROthiazide 25 mg Tablet PO (10:34)
[2024-06-22] MEDS: losartan 50 mg Tablet 100 MG PO (10:35)
[2024-06-22] MEDS: amlodipine 10 mg Tablet PO (10:35)
[2024-06-22] MEDS: hyDRALAzine 25 mg Tablet 50 MG PO ×3 (10:35→21:35)
--- NOTE | 2024-06-22 13:46 | P.PN_ITS ---
Subjective 2 Subjective: Seen this morning. Blood pressure has been elevated this morning into 190s. No acute events overnight. Vitals/I&O/Wt Last Vital Signs Temp 98.1 F 06/22/24 11:14 Pulse 69 06/22/24 11:14 Resp 17 06/22/24 11:14 BP 137/77 06/22/24 11:14 Pulse Ox 90 06/22/24 11:14 O2 Del Method Room Air 06/22/24 11:14 06/21/24 06/22/24 06/22/24 22:59 06:59 14:59 Intake Total 133.750 / 133.750 302.25 / 302.25 Balance 133.750 / 133.750 302.25 / 302.25 Weight last 48 hrs Weight 94.755 kg Weight 96.116 kg Weight 96.162 kg Physical Exam 2 Narrative: Pleasant and cooperative Nonfocal neuroexam S1, S2 Currently on room air, clear to auscultation bilaterally abdomen soft nontender. Blood pressure 190 systolic. Morbidly obese abdomen bloated nontender Pleasant and cooperative Nonfocal neuroexam No acute discomfort on room air alert Data 06/22/24 06:11 06/22/24 06:11 A&P Assessment and plan (1) HTN (hypertension): (2) Accelerated hypertension: (3) Acute kidney injury superimposed on chronic kidney disease: (4) Exertional dyspnea: Plan Hypertensive emergency Hypokalemia 3.6 Endorgan damage creatinine 1.5, acute on chronic kidney disease Patient is stating that she has not taken Lasix in a while Patient was put on Cardene drip Patient recently had cardiac stress test which was unremarkable Echo showed preserved ejection fraction with grade 2 diastolic function Patient does not look fluid overloaded she is not in decompensated heart failure Awake and alert without any symptoms for high blood pressure MAP reduction 25% in 6 to 8 hours I have turned off her Cardene drip, added hydralazine along losartan, hydrochlorothiazide, amlodipine, metoprolol Will give first dose of hydralazine in the evening, She has normal TSH, does not smoke, drinks occasionally Endorsing to social stressors, 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 Creatinine 1.3. Creatinine improving. ? Increase hydralazine to 50 3 times daily, continue Eliquis 2.5 twice daily, continue amlodipine 10 daily ? Continue hydrochlorothiazide 25 daily, losartan 100 daily. -Cardene drip was turned off yesterday evening. ? TSH normal ? Renin, aldosterone, renin aldosterone ratio pending. Blood pressure remained stable for next 24 hours will be discharged home tomorrow. Attestations 2 Medical Necessity Statement*: Requires inpatient hospitalization secondary to uncontrolled blood pressure. Diagnoses HTN (hypertension) I10 Accelerated hypertension I10 Acute kidney injury superimposed on chronic kidney disease N17.9; N18.9 Exertional dyspnea R06.09
[2024-06-22] MEDS: potassium chloride ER 20 mEq Tablet 40 MEQ PO (14:06)
[2024-06-23] VITALS: BP 110/69; PULSE 81; RESP 16; TEMP 36.9; O2SAT 93
[2024-06-23] MEDS: potassium chloride ER 20 mEq Tablet 40 MEQ PO (03:22)
[2024-06-23 03:47] VITALS: BP 155/62; PULSE 77; RESP 18; TEMP 37; O2SAT 91
[2024-06-23 05:30] LABS: Anion Gap 16.9 (5-19); Blood Urea Nitrogen 27 mg/dL (8-23); Calcium 8.9 mg/dL (8.5-10.5); Carbon Dioxide 26 mmol/L (22-29); Chloride 105 mmol/L (98-107); Creatinine Clr Calc Pharmacy 27.2415; Glucose 117 mg/dL (65-115); Osmolality Calculated 304 mOsm/kg (285-295); Potassium 3.9 mmol/L (3.5-5.1); Sodium 144 mmol/L (136-145)
[2024-06-23 07:56] VITALS: BP 157/73; PULSE 81; RESP 18; TEMP 36.7; O2SAT 92
[2024-06-23] MEDS: hydroCHLOROthiazide 25 mg Tablet PO (08:39)
[2024-06-23] MEDS: apixaban 5 mg Tablet 2.5 MG PO (08:40)
[2024-06-23] MEDS: hyDRALAzine 25 mg Tablet 50 MG PO (08:41)
[2024-06-23] MEDS: amlodipine 10 mg Tablet PO (08:41)
[2024-06-23] MEDS: pantoprazole DR 40 mg Tablet PO (08:41)
[2024-06-23 08:42] VITALS: BP 155/62
[2024-06-23] MEDS: losartan 50 mg Tablet 100 MG PO (08:42)
--- NOTE | 2024-06-23 09:24 | P.DS_ITS ---
Discharge Providers Date of Admission: 06/22/24 10:33 Date of Discharge: June 23, 2024 Attending Provider at Admission: Krista Chavez MD Attending Provider at Discharge: Krista Chavez MD Primary Care Provider: DIONTE Norton Diagnoses at Discharge Discharge Diagnosis (1) HTN (hypertension): Status: Acute (2) Accelerated hypertension: Status: Acute (3) Acute kidney injury superimposed on chronic kidney disease: Status: Acute (4) Exertional dyspnea: Status: Acute Reason for Visit Reason for Visit: hypertensive bp in 200 range Hospital Course Hospital Course Patient presented with hypertensive urgency. Baseline creatinine 1.5. She required Cardene drip initially. She states she did had a ringing in her ears when she presented. Blood pressure was high for the last 2 days which was close to 200. She states that she was recording her blood pressure for cardiology office when she noticed it was higher than usual. Medications were adjusted during hospitalization. She was placed on amlodipine hydralazine losartan. Recommended to have good oral hydration. Discharged home in stable condition to follow-up with cardiology and primary care doctor as an outpatient. Patient demonstrated understanding. Discussed with her to keep a blood pressure log sheet to take to her next appointment. Physical Exam Narrative: Pleasant and cooperative Nonfocal neuroexam S1, S2 Clear to auscultation bilaterally abdomen soft nontender Blood pressure stable 150 systolic. Morbidly obese abdomen bloated nontender Pleasant and cooperative Nonfocal neuroexam No acute discomfort on room air alert Discharge Data Studies Completed and Pending Completed Studies During Hospitalization Category Date Time Status CT head wo con* [id number] Stat Cat Scan 06/21/24 15:27 Completed XR chest 1V portable [id number] Stat Exams 06/21/24 12:57 Completed Pending at discharge Category Date Time Status Aldosterone/Plasma Renin Act Routine Lab 06/21/24 19:58 Received Plasma Renin Activity LC/MS/MS Routine Lab 06/21/24 19:58 Received Radiology Impressions Chest X-Ray 06/21/24 12:57 IMPRESSION: Mild cardiomegaly. Stable chest without acute abnormality. Head CT 06/21/24 15:27 IMPRESSION: No acute intracranial findings. Chronic/age-related changes as above. Laboratory Results WBC 5.52 10^3/uL (3.29-11.43) 06/22/24 06:11 RBC 4.22 10^6/uL (3.85-5.65) 12/04/24 06:11 Hgb 12.90 g/dL (11.27-16.99) 06/22/24 06:11 Hct 42.0 % (36-47) 06/22/24 06:11 MCV 99.5 fl (85-98) H D 06/22/24 06:11 MCH 30.6 pg (27-33) 06/22/24 06:11 MCHC 30.7 g/dL (30-55) D 06/22/24 06:11 RDW 12.5 % (12.1-15.1) 06/22/24 06:11 Plt Count 248 10^3/cmm (157-399) 06/22/24 06:11 MPV 9.9 fL (7.4-10.4) 06/22/24 06:11 Neut % (Auto) 64.5 % 06/22/24 06:11 Lymph % (Auto) 23.4 % 06/22/24 06:11 [place] % (Auto) 9.6 % 06/22/24 06:11 Eos % (Auto) 1.8 % 06/22/24 06:11 Baso % (Auto) 0.5 % 06/22/24 06:11 Neut # (Auto) 3.56 10^3/uL (1.8-7.7) 06/22/24 06:11 Lymph # (Auto) 1.3 10^3/uL (0.8-4.8) 06/22/24 06:11 [place] # (Auto) 0.5 10^3/uL (0.2-0.9) 06/22/24 06:11 Eos # (Auto) 0.1 10^3/uL (0.0-0.8) 06/22/24 06:11 Baso # (Auto) 0.0 10^3/uL (0.0-0.1) 06/22/24 06:11 Nucleated RBC % (auto) 0 % 06/22/24 06:11 Nucleated RBCs # 0.0 /100WBC 06/22/24 06:11 Sodium 144 mmol/L (136-145) 06/23/24 04:29 Potassium 3.9 mmol/L (3.5-5.1) 06/23/24 04:29 Chloride 105 mmol/L (98-107) 06/23/24 04:29 Carbon Dioxide 26 mmol/L (22-29) 06/23/24 04:29 Anion Gap 16.9 (5-19) 06/23/24 04:29 BUN 27 mg/dL (8-23) H 06/23/24 04:29 Creatinine 1.7 mg/dL (0.5-0.9) H 06/23/24 04:29 GFR Calculation Not Reportable 06/23/24 04:29 Glucose 117 mg/dL (65-115) H 06/23/24 04:29 Calculated Osmolality 304 mOsm/kg (285-295) H 06/23/24 04:29 Calcium 8.9 mg/dL (8.5-10.5) 06/23/24 04:29 Magnesium 2.0 mg/dL (1.7-2.3) 06/22/24 06:11 Total Bilirubin 0.5 mg/dL (0.15-1.2) 06/21/24 13:15 AST 14 U/L (0-32) 06/21/24 13:15 ALT 9 U/L (0-33) 06/21/24 13:15 Alkaline Phosphatase 63 U/L (35-105) 06/21/24 13:15 Total Protein 6.5 g/dL (6.6-8.7) L 06/21/24 13:15 Albumin 4.0 g/dL (3.5-5.2) 06/21/24 13:15 Globulin 2.5 g/dL (1.3-4.6) 06/21/24 13:15 TSH 2.96 uIU/mL (0.27-4.20) 06/21/24 13:15 Vitals Last Vital Signs Temp 98.0 F 06/23/24 07:56 Pulse 81 06/23/24 07:56 Resp 18 06/23/24 07:56 BP 155/62 06/23/24 08:42 Pulse Ox 92 06/23/24 07:56 O2 Del Method Room Air 06/23/24 07:56 Discharge Plan Discharge Patient Disposition: Home Condition: Stable Prescriptions: New losartan 50 mg Tablet 100 mg PO DAILY Qty: 60 0RF hydralazine 25 mg Tablet 50 mg PO TID Qty: 90 0RF amlodipine 10 mg Tablet 10 mg PO DAILY Qty: 30 0RF Continued escitalopram oxalate 20 mg tablet 20 mg PO DAILY (DME) sole supports See Rx Instructions .Route .MEDSUPPLY Qty: 1 0RF Rx Instructions: As directed Flori Aerosphere 160-9-4.8 mcg/actuation HFA aerosol inhaler 2 inh inhalation BID Qty: 10.7 3RF Eliquis 5 mg tablet 2.5 mg PO BID Qty: 90 3RF omeprazole 20 mg capsule,delayed release(DR/EC) 20 mg PO DAILY Discontinued telmisartan-hydrochlorothiazid 80-25 mg Tablet 1 tab PO DAILY Discharge Orders: Discharge Order (Routine); Ordered 06/23/24 Ordered By: Krista Chavez Referrals: [facility] [Other] (Call this number to see if they can assist you and your with obtaining in home services through [place] or [facility]. ) Heidi Haile FNP [Primary Care Provider] - 06/29/24 9:20 am Frantz Lilly M.D [Physician] - 7-10 days Discharge Diet: Cardiac Discharge Activity: Resume usual activity Patient Instructions: Hydralazine (By mouth), Amlodipine (By mouth), Losartan (By mouth), Hypertensive Crisis (DC), Opioid Safety Discharge Attestations Time Spent in Discharge Care*: greater than 30 min Quality Metrics Clinical Quality Measures [ No reported AMI, CVA or VTE this stay] Coding Level of Care Code Acute Code for Chg Fwd Diagnoses HTN (hypertension) I10 Accelerated hypertension I10 Acute kidney injury superimposed on chronic kidney disease N17.9; N18.9 Exertional dyspnea R06.09
[2024-06-23 11:40] VITALS: BP 146/73; PULSE 74; RESP 16; TEMP 37.1; O2SAT 90
[2024-06-23 13:01] VITALS: BP 157/73; PULSE 81; RESP 18; TEMP 36.7; O2SAT 92
--- NOTE | 2024-06-23 13:05 | PC.NURSE ---
Discharge Note Patient discharged to home via private vehicle accompanied by family member. Discharge instructions reviewed with patient and/or order entry representative. Mobile pharmacy medications and/or prescriptions provided. Belongings/home medications returned.
== END 2024-06-23 14:22 | disposition home or self-care (01) | DRG 305 ==
LOC: ER 16:54 → ER IP 20:38 → MEDSURG 06-22 02:48 → ER IP 06-22 06:57
PROVIDERS: Internal Medicine; Admitting Provider Internal Medicine; Emergency Provider Family Medicine; PCP Nurse Practitioner Family; Visit Provider Internal Medicine
DX: I16.0 Hypertensive urgency (principal); N17.9 Acute kidney failure, unspecified; J45.909 Unspecified asthma, uncomplicated; I12.9 Hypertensive chronic kidney disease with stage 1 through stage 4 chronic kidney disease, or unspecified chronic kidney disease; N18.9 Chronic kidney disease, unspecified; I25.10 Atherosclerotic heart disease of native coronary artery without angina pectoris; Z96.659 Presence of unspecified artificial knee joint; E87.6 Hypokalemia; R06.09 Other forms of dyspnea; Z79.01 Long term (current) use of anticoagulants; Z86.711 Personal history of pulmonary embolism
CPT/HCPCS: 36415; 70450; 71045; 80048; 80053; 82088; 83735; 84244; 84443; 85025; 93005; 96365; 96375; 99285; G0378; J0360

== ENCOUNTER → 2024-07-05 15:30 | Outpatient (BNVA) | payer MEDICARE, OTHER, SELFPAY | PROVIDERS: PCP Nurse Practitioner Family; Visit Provider Podiatrist Foot & Ankle Surgery | DX: L60.3 Nail dystrophy (principal); L60.8 Other nail disorders; I73.9 Peripheral vascular disease, unspecified | CPT/HCPCS: 11721; 99203 ==

== ENCOUNTER → 2024-07-07 15:57 | Outpatient (BNVA) | payer MEDICARE, OTHER, SELFPAY | PROVIDERS: PCP Nurse Practitioner Family; Visit Provider Nurse Practitioner Family | DX: I10 Essential (primary) hypertension (principal) | CPT/HCPCS: 99214 ==

== ENCOUNTER → 2024-08-24 10:28 | Outpatient (BNVA) | payer MEDICARE, OTHER, SELFPAY | PROVIDERS: PCP Nurse Practitioner Family; Visit Provider Nurse Practitioner Family | DX: I12.9 Hypertensive chronic kidney disease with stage 1 through stage 4 chronic kidney disease, or unspecified chronic kidney disease (principal); N18.9 Chronic kidney disease, unspecified; Z86.711 Personal history of pulmonary embolism; R06.09 Other forms of dyspnea; I25.10 Atherosclerotic heart disease of native coronary artery without angina pectoris; Z79.01 Long term (current) use of anticoagulants; E87.6 Hypokalemia | CPT/HCPCS: 99214 ==

== ENCOUNTER → 2024-09-13 13:57 | Outpatient (BNVA) | payer MEDICARE, OTHER, SELFPAY | PROVIDERS: PCP Nurse Practitioner Family; Visit Provider Podiatrist Foot & Ankle Surgery | DX: I73.9 Peripheral vascular disease, unspecified (principal); L60.8 Other nail disorders; L60.3 Nail dystrophy | CPT/HCPCS: 11721 ==

== ENCOUNTER 2024-09-28 14:25 | Outpatient (CLI) | payer MEDICARE, OTHER, SELFPAY | END 2024-09-28 14:26 | disposition home or self-care (01) | LOC: SLEEP 14:27 | PROVIDERS: PCP Nurse Practitioner Family; Visit Provider Nurse Practitioner Family | DX: G47.33 Obstructive sleep apnea (adult) (pediatric) (principal); G47.36 Sleep related hypoventilation in conditions classified elsewhere | CPT/HCPCS: G0399 ==

== ENCOUNTER 2024-10-25 15:34 | Outpatient (CLI) | payer MEDICARE, OTHER, SELFPAY ==
[2024-10-25 17:31] LABS: Albumin Level 4.5 g/dL (3.5-5.2); Blood Urea Nitrogen 35 mg/dL (8-23); Calcium 9.5 mg/dL (8.5-10.5); Carbon Dioxide 22 mmol/L (22-29); Chloride 104 mmol/L (98-107); Glucose 95 mg/dL (65-115); Phosphorus 3.3 mg/dL (2.5-4.5); Sodium 140 mmol/L (136-145)
[2024-10-25 17:32] LABS: Creatinine Urine, Random 315 mg/dL (28-217); Microalbum Creatinine Ratio Ur 13 mg/dL (0-20); Microalbumin Random Urine 4 ug/dL (0-20)
[2024-10-25 18:30] LABS: Urine Appearance Clear (CLEAR); Urine Color Yellow (Yellow)
[2024-10-25 18:31] LABS: Bilirubin Urine Neg (Negative); Blood Urine Neg (Negative); Glucose Urine UA Norm (Normal); Ketones Urine Negative (Negative); Leukocyte Esterase Urine 1+ (Negative); Nitrate Urine Negative (Negative); Protein Urine 1+ (Negative); Specific Gravity, Urine 1.025 (1.005-1.030); Urobilinogen Urine Norm (Negative); pH Urine 6.5 (5-7)
[2024-10-25 18:32] LABS: RBC Urine 0-4 /hpf (0-2)
[2024-10-25 18:33] LABS: Add Urine Culture? No; Bacteria Urine TRACE /hpf; Squamous Epithelial Cell Urine 0-4 /hpf (0-5)
[2024-10-25 18:34] LABS: Urine Creatinine 317 mg/dL (28-217)
[2024-10-25 18:35] LABS: UPRO/UCREAT Ratio 0.13 mg/mg CR; Urine Protein Random 42 mg/dL
[2024-10-25 19:54] LABS: Anion Gap 17.6 (5-19); Potassium 3.6 mmol/L (3.5-5.1)
== END 2024-10-25 15:35 | disposition home or self-care (01) ==
PROVIDERS: PCP Nurse Practitioner Family; Visit Provider Internal Medicine Nephrology
DX: N18.4 Chronic kidney disease, stage 4 (severe) (principal)
CPT/HCPCS: 36415; 80069; 81001; 82044; 82570; 84156

== ENCOUNTER 2024-11-01 15:28 | Outpatient (CLI) | payer MEDICARE, OTHER, SELFPAY ==
--- NOTE | 2024-11-01 16:10 | US_ITS ---
WS: [id number] RENAL ULTRASOUND HISTORY: CKD COMPARISON: 06/29/2023 TECHNIQUE: 2-D and color Doppler imaging of the kidney submitted. Right kidney: 9.1 cm x 4.5 cm x 4.5 cm. Cortex: 1.0 cm Very mild thinning of the cortex. No hydronephrosis or mass. Left kidney: 10.2 cm x 5.3 cm x 4.1 cm. Cortex: 1.1 cm Normal size kidney. Small cortical cyst 1.5 x 1.1 x 1.2 cm, cyst between the mid and upper regions of the kidney. No obstruction. Aorta: Normal. Urinary Bladder: Minimally distended. US/US renal BI* [id number] IMPRESSION: 1. No hydronephrosis or significant renal atrophy. 2. Small cortical cyst LEFT kidney.
== END 2024-11-01 15:29 | disposition home or self-care (01) ==
PROVIDERS: PCP Nurse Practitioner Family; Visit Provider Internal Medicine Nephrology
DX: N18.4 Chronic kidney disease, stage 4 (severe) (principal); N28.1 Cyst of kidney, acquired
CPT/HCPCS: 76770

== ENCOUNTER → 2024-11-29 15:17 | Outpatient (BNVA) | payer MEDICARE, OTHER, SELFPAY | PROVIDERS: PCP Nurse Practitioner Family; Visit Provider Podiatrist Foot & Ankle Surgery | DX: I73.9 Peripheral vascular disease, unspecified (principal); L60.8 Other nail disorders; L60.3 Nail dystrophy | CPT/HCPCS: 11721 ==

== ENCOUNTER 2025-03-02 11:13 | Outpatient (CLI) | payer MEDICARE, OTHER, SELFPAY ==
[2025-03-02 12:49] LABS: UPRO/UCREAT Ratio 0.09 mg/mg CR
== END 2025-03-02 11:14 | disposition home or self-care (01) ==
LOC: LAB 11:18
PROVIDERS: PCP Nurse Practitioner Family; Visit Provider Internal Medicine Nephrology
DX: N18.4 Chronic kidney disease, stage 4 (severe) (principal)
CPT/HCPCS: 82570; 84156

== ENCOUNTER 2025-03-03 17:03 | Outpatient (CLI) | payer MEDICARE, OTHER, SELFPAY ==
[2025-03-03 18:33] LABS: Hematocrit 39.4 % (36-47); Hemoglobin 12.80 g/dL (11.27-16.99); Mean Corpuscular HGB Conc 32.5 g/dL (30-55); Mean Corpuscular Hemoglobin 30.7 pg (27-33); Mean Corpuscular Volume 94.5 fl (85-98); Nucleated Red Blood Cells % 0 %; Platelet Count 234 10^3/cmm (157-399); Red Blood Count 4.17 10^6/uL (3.85-5.65); White Blood Count 5.13 10^3/uL (3.29-11.43)
[2025-03-03 18:59] LABS: Calcium 9.0 mg/dL (8.5-10.5)
[2025-03-04 01:47] LABS: Albumin Level 4.1 g/dL (3.5-5.2); Anion Gap 17.3 (5-19); Blood Urea Nitrogen 31 mg/dL (8-23); Calcium 9.0 mg/dL (8.5-10.5); Carbon Dioxide 22 mmol/L (22-29); Chloride 107 mmol/L (98-107); Glucose 81 mg/dL (65-115); Potassium 4.3 mmol/L (3.5-5.1); Sodium 142 mmol/L (136-145)
== END 2025-03-03 17:04 | disposition home or self-care (01) ==
LOC: LAB 17:12
PROVIDERS: PCP Nurse Practitioner Family; Visit Provider Internal Medicine Nephrology
DX: N18.4 Chronic kidney disease, stage 4 (severe) (principal)
CPT/HCPCS: 80069; 82306; 82310; 83970; 85025

== ENCOUNTER → 2025-03-07 11:01 | Outpatient (BNVA) | payer MEDICARE, OTHER, SELFPAY | PROVIDERS: PCP Nurse Practitioner Family; Visit Provider Podiatrist Foot & Ankle Surgery | DX: I73.9 Peripheral vascular disease, unspecified (principal); L60.3 Nail dystrophy; L84 Corns and callosities; L60.8 Other nail disorders | CPT/HCPCS: 11056; 11721 ==

== ENCOUNTER → 2025-05-17 11:16 | Outpatient (BNVA) | payer MEDICARE, OTHER, SELFPAY | PROVIDERS: PCP Nurse Practitioner Family; Visit Provider Podiatrist Foot & Ankle Surgery | DX: I73.9 Peripheral vascular disease, unspecified (principal); L60.3 Nail dystrophy; L84 Corns and callosities; L60.8 Other nail disorders | CPT/HCPCS: 11055; 11721 ==

== ENCOUNTER → 2025-05-25 15:25 | Outpatient (BNVA) | payer MEDICARE, OTHER, SELFPAY | PROVIDERS: PCP Nurse Practitioner Family; Visit Provider Internal Medicine | DX: J45.20 Mild intermittent asthma, uncomplicated (principal); G47.33 Obstructive sleep apnea (adult) (pediatric); Z99.89 Dependence on other enabling machines and devices; Z79.01 Long term (current) use of anticoagulants; Z86.711 Personal history of pulmonary embolism; J44.9 Chronic obstructive pulmonary disease, unspecified | CPT/HCPCS: 99214; Q3014 ==

== ENCOUNTER 2025-06-13 12:57 | Outpatient (CLI) | payer MEDICARE, OTHER, SELFPAY ==
[2025-06-13 13:22] LABS: Hematocrit 41.6 % (36-47); Hemoglobin 13.80 g/dL (11.27-16.99); Mean Corpuscular HGB Conc 33.2 g/dL (30-55); Mean Corpuscular Hemoglobin 31.2 pg (27-33); Mean Corpuscular Volume 93.9 fl (85-98); Nucleated Red Blood Cells % 0 %; Platelet Count 223 10^3/cmm (157-399); Red Blood Count 4.43 10^6/uL (3.85-5.65); White Blood Count 5.54 10^3/uL (3.29-11.43)
[2025-06-13 13:48] LABS: Albumin Level 4.2 g/dL (3.5-5.2); Anion Gap 14.9 (5-19); Blood Urea Nitrogen 32 mg/dL (8-23); Calcium 9.2 mg/dL (8.5-10.5); Carbon Dioxide 27 mmol/L (22-29); Chloride 108 mmol/L (98-107); Glucose 87 mg/dL (65-115); Potassium 3.9 mmol/L (3.5-5.1); Sodium 146 mmol/L (136-145)
[2025-06-13 13:49] LABS: Calcium 9.1 mg/dL (8.5-10.5)
[2025-06-13 13:51] LABS: Creatinine Urine, Random 175 mg/dL (28-217); Microalbum Creatinine Ratio Ur 17 mg/dL (0-20)
== END 2025-06-13 12:58 | disposition home or self-care (01) ==
LOC: LAB 12:58
PROVIDERS: PCP Nurse Practitioner Family; Visit Provider Registered Nurse
DX: N18.4 Chronic kidney disease, stage 4 (severe) (principal)
CPT/HCPCS: 36415; 80069; 82044; 82310; 83970; 85025